=== PATIENT | male | born 1980 | race Hispanic/Latino ===

== ENCOUNTER 2017-05-05 10:28 | Inpatient (IN) | payer BC ==
[2017-05-05 10:28] VITALS: BMI 28.1
--- NOTE | 2017-05-05 11:00 | ED PDOC ---
Arrival/HPI - General Chief Complaint: Abdominal Pain Time Seen by Provider: 05/05/17 10:34 - History of Present Illness Narrative History of Present Illness (Text): 37 year old male with a history of diverticulitis and kidney stones who presents with 5 days of fever, chills, sweats, decreased PO intake, nausea and 2 days of left lower quandrant pain. He scales the pain as 8/10 in severity, constant, worsened with food, and with BM. He denies hematochezia or melena. 05/05/17 11:00 Past Medical History - Provider Review Nursing Documentation Reviewed: Yes - Infectious Disease Hx of Infectious Diseases: None - Tetanus Immunization Tetanus Immunization: Unknown - Past Medical History Past Medical History: No Previous - Cardiac Hx Cardiac Disorders: No - Pulmonary Hx Respiratory Disorders: No - Neurological Hx Neurological Disorder: No - HEENT Hx HEENT Disorder: No - Renal Hx Renal Disorder: No - Endocrine/Metabolic Hx Endocrine Disorders: No - Hematological/Oncological Hx Blood Disorders: No - Integumentary Other/Comment: rectal abscess removal, rectum site - Musculoskeletal/Rheumatological Hx Musculoskeletal Disorders: No Hx Falls: No - Gastrointestinal Other/Comment: rectal abscess removed 07/21/16 - Genitourinary/Gynecological Hx Genitourinary Disorders: No Hx Hematuria: No Hx Incontinence: No Hx Prostate Problems: No Hx Sexually Transmitted Diseases: No Hx Urinary Tract Infection: No Other/Comment: rectal abscess removed 07/21/16 - Psychiatric Hx Psychophysiologic Disorder: No Hx Substance Use: No - Past Surgical History Past Surgical History: No Previous - Surgical History Other/Comment: rectal surgery 07/21/16 - Anesthesia Hx Anesthesia: Yes Hx Anesthesia Reactions: No - Suicidal Assessment Feels Threatened In Home Enviroment: No Family/Social History - Physician Review Nursing Documentation Reviewed: Yes Family/Social History: Other (diverticulitis) Smoking Status: Never Smoked Hx Alcohol Use: No Hx Substance Use: No Hx Substance Use Treatment: No Allergies/Home Meds Allergies/Adverse Reactions: Allergies No Known Allergies Allergy (Verified 07/21/16 13:02) Home Medications: Home Meds Medication Instructions Recorded Confirmed Fexofenadine/Pseudoephedrine 1 tab PO DAILY 07/21/16 05/05/17 [Raquel-D 24 Hour Tablet] Omeprazole 1 tab PO DAILY 07/21/16 05/05/17 Review of Systems - Review of Systems Constitutional: Fatigue, Fevers. absent: Weight Change Eyes: Normal. absent: Vision Changes, Photophobia ENT: Other (lesions on the lips and lower left nares) Respiratory: Normal. absent: Cough, Sputum Cardiovascular: Normal. absent: Chest Pain, Palpitations Gastrointestinal: Abdominal Pain (tenderness in the LLQ to palpation, no rebound tenderness), Nausea. absent: Constipation, Diarrhea, Hematochezia, Hematemesis Genitourinary Male: absent: Dysuria, Frequency, Hematuria Musculoskeletal: Arthralgias, Myalgias Skin: Normal. absent: Rash, Pruritis, Skin Lesions Neurological: Normal. absent: Headache, Dizziness Endocrine: Normal. absent: Diaphoresis, Polyuria Hemo/Lymphatic: absent: Easy Bleeding, Easy Bruising Psychiatric: absent: Anxiety, Depression Physical Exam Vital Signs Reviewed: Yes Vital Signs Temp Pulse Resp BP Pulse Ox 05/05/17 14:20 61 17 121/78 99 05/05/17 12:40 62 17 140/94 H 99 05/05/17 10:28 98.8 F 65 65 H 142/97 H 99 Temperature: Afebrile Blood Pressure: Normal Pulse: Regular Respiratory Rate: Normal Appearance: Positive for: Well-Appearing, Non-Toxic Pain Distress: Mild Mental Status: Positive for: Alert and Oriented X 3 - Systems Exam Head: Present: Atraumatic, Normocephalic Pupils: Present: PERRL Extroacular Muscles: Present: EOMI Conjunctiva: Present: Normal Mouth: Present: Moist Mucous Membranes, Other (stress ulcers noted on lips, no buccal lesions noted) Pharnyx: Present: Normal. No: ERYTHEMA, EXUDATE Neck: Present: Lymphadenopathy (anterior cervical chain) Respiratory/Chest: Present: Clear to Auscultation, Good Air Exchange. No: Respiratory Distress, Accessory Muscle Use Cardiovascular: Present: Regular Rate and Rhythm, Normal S1, S2. No: Murmurs Abdomen: Present: Tenderness (left lower quandrant pain), Normal Bowel Sounds. No: Distention, Peritoneal Signs, Rebound Back: Present: Normal Inspection. No: CVA Tenderness Upper Extremity: Present: Normal Inspection. No: Cyanosis, Edema Lower Extremity: Present: Normal Inspection. No: Edema, CALF TENDERNESS Neurological: Present: CN II-XII Intact, Speech Normal, Motor Func Grossly Intact Skin: Present: Warm, Dry, Normal Color Psychiatric: Present: Alert, Oriented x 3, Normal Insight, Normal Concentration Medical Decision Making ED Course and Treatment: 37 year old male with a past medical history of diverticulitis who presents with 5 days of fever, malaise and 2 days of LLQ. vice president of software engineering on-call informed to see patient. 05/05/17 11:36 WBC count of 9.9 with neutrophil predominance, mildly elevated LFTs, surgical team has seen the patient. Patient is at CT. 05/05/17 12:07 CT of abdomen and pelvis with PO and IV contrast reveals acute sigmoid diverticulitis. Small perforation with a small amount of extraluminal gas identified adjacent to the affected sigmoid colon. Mural thickening of a short segment of small intestines adjacent to the affected sigmoid colon, likely due to extrinsic inflammatory change. Several small tissue nodules along the gall bladder wall. Recommend evaluation with ultrasound examination. 05/05/17 15:[address] Martin who will accept the patient under her medical services. Dr. Freire, surgeon, was also made aware. 05/05/17 16:03 - Lab Interpretations Lab Results: 05/05/17 11:15 05/05/17 11:15 Lab Results 05/05/17 11:15: Sodium 139, Potassium 4.3, Chloride 100, Carbon Dioxide 27, Anion Gap 16, BUN 11, Creatinine 0.8, Est GFR ( Amer) > 60, Est GFR (Non- Af Amer) > 60, Random Glucose 114 H, Calcium 9.3, Total Bilirubin 1.2, AST 86 H , ALT 127 H, Alkaline Phosphatase 156 H, Total Protein 7.8, Albumin 4.4, Globulin 3.4, Albumin/Globulin Ratio 1.3, Lipase 52 05/05/17 11:15: WBC 9.9 D, RBC 5.30, Hgb 15.5, Hct 44.0, MCV 83.0, MCH 29.2, MCHC 35.2, RDW 13.1, Plt Count 197, MPV 9.3, Gran % 81.3 H, Lymph % (Auto) 10.2 L, [place] % (Auto) 8.2 H, Eos % (Auto) 0.1 L, Baso % (Auto) 0.2, Gran # 8.06 H, Lymph # 1.0 L, [place] # 0.8 H, Eos # 0.0, Baso # 0.02 05/05/17 10:56: Urine Color Light brown, Urine Appearance Sl cloudy, Urine pH 6.0, Ur Specific [place] 1.025, Urine Protein >=300 H, Urine Glucose (UA) Negative, Urine Ketones >=80, Urine Blood Moderate H, Urine Nitrate Negative, Urine Bilirubin Moderate H, Urine Urobilinogen 2.0 H, Ur Leukocyte Esterase Negative, Urine RBC 5 - 10, Urine WBC 0 - 2, Urine Bacteria Trace, Urine Other Mucus - RAD Interpretation Radiology Orders: 05/05/17 10:56 ABD PELVIS PO & IV CONTRAST [CT] Stat - Medication Orders Current Medication Orders: Discontinued Medications Piperacillin Sod/Tazobactam Sod (Zosyn 3.375 In Ns 100ml) 100 mls @ 200 mls/hr IVPB STAT STA PRN Reason: Protocol Stop: 05/05/17 15:16 Last Admin: 05/05/17 15:03 Dose: 200 mls/hr eMAR Start Stop Document 05/05/17 15:03 SF (Rec: 05/05/17 15:04 [id number]) Intravenous Solution Start Date 05/05/17 Start Time 15:04 End Date 05/05/17 End time 15:34 Total Infusion Time 30 Ketorolac Tromethamine (Toradol) 30 mg IVP STAT STA Stop: 05/05/17 12:31 Last Admin: 05/05/17 12:41 Dose: 30 mg MAR Pain Assessment Document 05/05/17 12:41 SF (Rec: 05/05/17 12:42 [id number]) Pain Reassessment Is this a pain reassessment? Yes Sleep Is patient sleeping during reassessment? No Presence of Pain Presence of Pain Yes Location Pain Location Body Site Abdomen Description Description Intermittent IVP Administration Document 05/05/17 12:41 SF (Rec: 05/05/17 12:42 [id number]) Charges for Administration # of IVP Administrations 1 Disposition/Present on Arrival - Present on Arrival Any Indicators Present on Arrival: No History of DVT/PE: No History of Uncontrolled Diabetes: No Urinary Catheter: No History Surgical Site Infection Following: None - Disposition Have Diagnosis and Disposition been Completed?: Yes Diagnosis: Diverticulitis large intestine Disposition: HOSPITALIZED Disposition Time: 16:03 Condition: FAIR Forms: [employer] (formerly [employer]) ([place])
[2017-05-05] MEDS ORDERED: Iohexol 350 MG/100 ML VIAL ONE (11:12)
[2017-05-05] MEDS ORDERED: Iohexol 240 (50 ml) ONE (11:12)
[2017-05-05 11:24] LABS: BASO # 0.02 K/mm3 (0.0-2.0); BASO % 0.2 % (0.0-3.0); EOS % 0.1 % (1.5-5.0); GRAN # 8.06 (1.4-6.5); GRAN % 81.3 % (50.0-68.0); LYMPH % 10.2 % (22.0-35.0); MEAN CORPUSCULAR HEMOGLOBIN 29.2 pg (25.0-35.0); MEAN CORPUSCULAR HGB CONC 35.2 g/dl (31.0-37.0); MEAN PLATELET VOLUME 9.3 fl (7.0-11.0); MONO # 0.8 (0.1-0.6); MONO % 8.2 % (1.0-6.0); RED CELL DISTRIBUTION WIDTH 13.1 % (11.5-14.5); WHITE BLOOD COUNT 9.9 10^3/ul (4.5-11.0)
[2017-05-05 11:34] LABS: ALB/GLOB RATIO 1.3 (1.1-1.8); ALKALINE PHOSPHATASE 156 U/L (38-126); ALT/SGPT 127 U/L (7-56); AST/SGOT 86 U/L (17-59); BILIRUBIN,TOTAL 1.2 mg/dL (0.2-1.3); BLOOD UREA NITROGEN 11 mg/dL (7-21); CALCIUM 9.3 mg/dL (8.4-10.5); CARBON DIOXIDE 27 mmol/L (21-33); CHLORIDE 100 mmol/L (98-107); GFR AFRICAN-AMERICAN > 60; GLUCOSE,RANDOM 114 mg/dL (70-110); LIPASE 52 U/L (23-300); POTASSIUM 4.3 mmol/L (3.6-5.0); SODIUM 139 mmol/L (132-148); TOTAL PROTEIN 7.8 g/dL (5.8-8.3)
[2017-05-05 11:51] LABS: URINE BILIRUBIN MODERATE (NEGATIVE); URINE BLOOD MODERATE (NEGATIVE); URINE COLOR LIGHT BROWN (YELLOW); URINE GLUCOSE (UA) NEGATIVE (NEGATIVE); URINE KETONE >=80 mg/dL (NEGATIVE); URINE LEUKOCYTE ESTERASE NEGATIVE Leu/uL (NEGATIVE); URINE PROTEIN >=300 mg/dL (<30 mg/dL)
[2017-05-05 11:52] LABS: URINE APPEARANCE SL CLOUDY (CLEAR)
[2017-05-05 12:01] LABS: URINE WBC 0 - 2 /hpf (0-6)
[2017-05-05 12:02] LABS: URINE BACTERIA TRACE (NEG)
[2017-05-05] MEDS ORDERED: Piperacillin/Tazobact 3.375 gm 100 ML IVPB STA (14:47)
--- NOTE | 2017-05-05 14:47 | CT ---
PROCEDURE: CT Abdomen and Pelvis with contrast HISTORY: LLQ pain, history of diverticulitis COMPARISON: None. TECHNIQUE: Contrast dose: 100 mL Omnipaque 350 Radiation dose: Total exam DLP = 100 mL Omnipaque 350 mGy-cm. This CT exam was performed using one or more of the following dose reduction techniques: Automated exposure control, adjustment of the mA and/or kV according to patient size, and/or use of iterative reconstruction technique. FINDINGS: LOWER THORAX: Unremarkable. LIVER: Unremarkable. No gross lesion or ductal dilatation. GALLBLADDER AND BILE DUCTS: There are 2 small mural based soft tissue densities in the gallbladder, non dependent, measuring 7 mm and 8 mm, respectively. These may represent polyps. Evaluation with ultrasound examination is recommended on a nonemergent basis. There is no evidence of cholelithiasis. There is no mural thickening. PANCREAS: Unremarkable. No gross lesion or ductal dilatation. SPLEEN: Unremarkable. ADRENALS: Unremarkable. No mass. KIDNEYS AND URETERS: Unremarkable. No hydronephrosis. No solid mass. VASCULATURE: Unremarkable. No aortic aneurysm. BOWEL: There is acute sigmoid diverticulitis. There is mural thickening of the sigmoid colon with pericolonic inflammatory change. There is a small amount of extraluminal gas adjacent to the affected sigmoid colon consistent with a small perforation and free air. Shotty pericolonic lymph nodes are noted, less than 1 cm. This is nonspecific. Followup to clearing is advised to exclude underlying neoplasm. There is circumferential mural thickening involving a short segment of small intestine along the right lateral aspect of the sigmoid colon (series 2, image 129 through 139). This is most likely a secondary phenomenon arising from the adjacent inflammation. There are no other abnormal bowel loops identified. There is no bowel obstruction. APPENDIX: Normal appendix. PERITONEUM: Unremarkable. No free fluid. No free air. LYMPH NODES: Unremarkable. No enlarged lymph nodes. BLADDER: Nondistended REPRODUCTIVE: Normal prostate BONES: No acute fracture. OTHER FINDINGS: None. IMPRESSION: Acute sigmoid diverticulitis. There is a small perforation with a small amount of extraluminal gas identified adjacent to the affected sigmoid colon. Mural thickening of the sigmoid colon. Followup to clearing is advised to exclude underlying neoplasm. Mural thickening of a short segment of small intestine adjacent to the affected sigmoid colon, likely due to extrinsic inflammatory change. Several small soft tissue nodules along the gallbladder wall. Recommend evaluation with ultrasound examination.
--- NOTE | 2017-05-05 15:32 | CP.PCM.CON ---
History of Present Illness - History of Present Illness History of Present Illness: Patient is a 37 year old Male that presents to the ED with diffuse abdominal pain that started 5 days ago and has now localized to the LLQ. He states this past week he had been eating and drinking more than normal. He has had similar pain previously that was diagnosed as diverticulitis. His last episode was 3 years ago. This is his 3rd episodes. He reports associated fever, chills, night sweats, anorexia, non-bilious non-bloody vomiting x 3 and watery non-bloody diarrhea for 2 days which subsided on Tuesday. PMH: Diverticulitis, Diverticulosis PSH: Rectal Abscess drainage Allergies: NKDA Social Hx: Smokes 5 cigarettes per day, drinks alcohol socially. Family Hx: Diverticulosis and Diverticulitis in Father, Colon Cancer in grandfather and multiple family members. No hx of IBD. Review of Systems - Review of Systems Review of Systems: See HPI Past Patient History - Infectious Disease Hx of Infectious Diseases: None - Tetanus Immunizations Tetanus Immunization: Unknown - Past Social History Smoking Status: Never Smoked - CARDIAC Hx Cardiac Disorders: No - PULMONARY Hx Respiratory Disorders: No - NEUROLOGICAL Hx Neurological Disorder: No - HEENT Hx HEENT Problems: No - RENAL Hx Chronic Kidney Disease: No - ENDOCRINE/METABOLIC Hx Endocrine Disorders: No - HEMATOLOGICAL/ONCOLOGICAL Hx Blood Disorders: No - INTEGUMENTARY Other/Comment: rectal abscess removal, rectum site - MUSCULOSKELETAL/RHEUMATOLOGICAL Hx Musculoskeletal Disorders: No Hx Falls: No - GASTROINTESTINAL Other/Comment: rectal abscess removed 07/21/16 - GENITOURINARY/GYNECOLOGICAL Hx Genitourinary Disorders: No Hx Hematuria: No Hx Incontinence: No Hx Prostate Problems: No Hx Sexually Transmitted Disorders: No Hx Urinary Tract Infection: No Other/Comment: rectal abscess removed 07/21/16 - PSYCHIATRIC Hx Psychophysiologic Disorder: No Hx Substance Use: No - SURGICAL HISTORY Other/Comment: rectal surgery 07/21/16 - ANESTHESIA Hx Anesthesia: Yes Hx Anesthesia Reactions: No Meds Allergies/Adverse Reactions: Allergies Allergy/AdvReac Type Severity Reaction Status Date / Time No Known Allergies Allergy Verified 07/21/16 13:02 Physical Exam - Constitutional Appears: Non-toxic, No Acute Distress - Head Exam Head Exam: ATRAUMATIC, NORMOCEPHALIC - Eye Exam Eye Exam: EOMI. absent: Conjunctival injection - Neck Exam Neck exam: Positive for: Full Rom - Respiratory Exam Respiratory Exam: absent: Accessory Muscle Use, Decreased Breath Sounds, Respiratory Distress - Cardiovascular Exam Cardiovascular Exam: REGULAR RHYTHM - GI/Abdominal Exam GI & Abdominal Exam: Normal Bowel Sounds, Soft, Tenderness (mild-mod of LLQ and left groin). absent: Distended, Guarding, Organomegaly, Rebound, Rigid Additional comments: LLQ TTP - Extremities Exam Extremities exam: Positive for: full ROM. Negative for: pedal edema - Neurological Exam Neurological exam: Alert, Oriented x3 - Psychiatric Exam Psychiatric exam: Normal Affect, Normal Mood - Skin Skin Exam: Dry, Normal Color, Warm Results - Vital Signs Recent Vital Signs: Last Vital Signs Temp 98.8 F 05/05/17 10:28 Pulse 61 05/05/17 14:20 Resp 17 05/05/17 14:20 BP 121/78 05/05/17 14:20 Pulse Ox 99 05/05/17 14:20 - Labs Result Diagrams: 05/05/17 11:15 05/05/17 11:15 Labs: Laboratory Results - last 24 hr 05/05/17 05/05/17 05/05/17 10:56 11:15 11:15 WBC 9.9 D RBC 5.30 Hgb 15.5 Hct 44.0 MCV 83.0 MCH 29.2 MCHC 35.2 RDW 13.1 Plt Count 197 MPV 9.3 Gran % 81.3 H Lymph % (Auto) 10.2 L [place] % (Auto) 8.2 H Eos % (Auto) 0.1 L Baso % (Auto) 0.2 Gran # 8.06 H Lymph # 1.0 L [place] # 0.8 H Eos # 0.0 Baso # 0.02 Sodium 139 Potassium 4.3 Chloride 100 Carbon Dioxide 27 Anion Gap 16 BUN 11 Creatinine 0.8 Est GFR ( Amer) > 60 Est GFR (Non-Af Amer) > 60 Random Glucose 114 H Calcium 9.3 Total Bilirubin 1.2 AST 86 H ALT 127 H Alkaline Phosphatase 156 H Total Protein 7.8 Albumin 4.4 Globulin 3.4 Albumin/Globulin Ratio 1.3 Lipase 52 Urine Color Light brown Urine Appearance Sl cloudy Urine pH 6.0 Ur Specific [place] 1.025 Urine Protein >=300 H Urine Glucose (UA) Negative Urine Ketones >=80 Urine Blood Moderate H Urine Nitrate Negative Urine Bilirubin Moderate H Urine Urobilinogen 2.0 H Ur Leukocyte Esterase Negative Urine RBC 5 - 10 Urine WBC 0 - 2 Urine Bacteria Trace Urine Other Mucus Assessment & Plan - Assessment and Plan (Free Text) Assessment: 37M with history of diverticulitis and diverticulosis with LLQ abdominal pain.\ No leukocytosis VSS CT: sigmoid diverticulitits Plan: - NPO - IVF - ABX - pain management PRN
[2017-05-05] MEDS ORDERED: HYDROmorphone 1 mg/ml ISec IVP PRN (16:17)
[2017-05-05] MEDS ORDERED: Sodium Chloride 0.9% 1,000 ML IV STA (16:17)
[2017-05-05] MEDS ORDERED: Sodium Chloride 0.9% 1,000 ML IV SCH (17:30)
[2017-05-05] MEDS ORDERED: Ciprofloxacin 400mg/200ml D5W 400 MG/200 ML BAG IVPB SCH (22:00)
[2017-05-05] MEDS ORDERED: metroNIDAZOLE IV 500 mg/100 ml 500 MG/100 ML BAG IVPB SCH (22:00)
[2017-05-05] MEDS ORDERED: Influenza Vaccine 60 mcg/0.5 mL SYR (4YR UP) IM ONE (22:10)
[2017-05-05] MEDS ORDERED: Pneumococcal 23-Valent Vaccine IM ONE (22:10)
[2017-05-06] MEDS: Piperacillin/Tazobact 3.375 gm 100 ML IVPB SCH ×5 (00:11→23:52)
--- NOTE | 2017-05-06 04:59 | CON ---
CHIEF COMPLAINT: Fevers and chills times several days. HISTORY OF PRESENT ILLNESS: This is a 37-year-old male with history of diverticulitis for many years, family history of diverticulitis, history of kidney stones, history of rectal abscess, states he had been having fevers and chills and eventually he had abdominal pain which is described as left lower quadrant and associated with weakness and abdominal pain was significant pain. He has had diverticulitis in the past, he notes pain and he states that he did not have any chest pain, shortness of breath or cough. No vomiting. He did have diarrhea which was nonbloody. PAST MEDICAL HISTORY: Significant for diverticulitis, kidney stones and rectal abscess. PAST SURGICAL HISTORY: Significant for rectal abscess, I and D in 06/[address] Reina. ALLERGIES: THE PATIENT HAS NO KNOWN ALLERGIES. SOCIAL HISTORY: He smokes a few cigarettes a day. He is a social alcohol user. FAMILY HISTORY: Diverticulitis in multiple family members. He was born in [place]. No travel history. No exposure to tuberculosis. PHYSICAL EXAMINATION: VITAL SIGNS: Temperature is 97, blood pressure is 120/70, respiratory rate of 18, heart rate of 61. HEENT: Unremarkable. NECK: Supple. LUNGS: Have decreased breath sounds. HEART: Normal S1 and S2. ABDOMEN: Mild tenderness. No rebound, no guarding, no masses. LABORATORY EXAMINATION: Reveals a white count of 9.9, hemoglobin of 15, and platelets of 197. Chemistries are noted. The patient does have LFT elevations including alk phos and random glucose is 114. Urinalysis is noted. ASSESSMENT AND PLAN: This is a 37-year-old male who is presenting with fevers and chills and abdominal pain, history of diverticulitis, history of family diverticulitis, was found to have on CT scan in the emergency room with acute sigmoid diverticulitis with small perforation with small amount of extraluminal gas identified adjacent to the affected sigmoid colon, mural thickening of the sigmoid colon. At this point, we will start the patient on Zosyn. We will order pancultures, blood and we will order an human immunodeficiency virus because of his age, hepatitis profile because of the LFT elevations and alk phos elevation. We will start the patient on Zosyn and order a hemoglobin A1c. We will discontinue the Cipro and discontinue the Flagyl and we will make further recommendations upon availability of initial results. The patient's urinalysis does show proteinuria, moderate bilirubin, moderate blood. Recommended GI evaluation. Dr. Reina is also on consult. We will follow with you. Norman Waldron MD
--- NOTE | 2017-05-06 08:31 | CP.PCM.PN ---
Subjective - Date & Time of Evaluation Date of Evaluation: 05/06/17 Time of Evaluation: 08:28 - Subjective Subjective: Surgery progress note for Dr. Reina Patient seen and examined at bedside. Patient resting comfortably in bed with no new complaints at this time. Patient says he prefers the toradol over the dilaudid. Patient says his pain is controlled but he did have 1 episode of diarrhea overnight. Patient denies fever, chills, abdominal pain, nausea, and vomiting. Objective - Vital Signs/Intake and Output Vital Signs (last 24 hours): Temp Pulse Resp BP Pulse Ox 99.2 F 55 L 20 121/77 97 05/06/17 08:09 05/06/17 08:09 05/06/17 08:09 05/06/17 08:09 05/06/17 08:09 Intake and Output: 05/06/17 05/06/17 06:59 18:59 Intake Total 0 Output Total 200 Balance -200 - Medications Medications: Current Medications Acetaminophen (Tylenol 325mg Tab) 650 mg PO Q4 PRN PRN Reason: Fever >100.4 F Hydromorphone HCl (Dilaudid) 1 mg IVP Q4H PRN PRN Reason: Pain, severe (8-10) Piperacillin Sod/Tazobactam Sod (Zosyn 3.375 In Ns 100ml) 100 mls @ 200 mls/hr IVPB Q6 ROCK PRN Reason: Protocol Stop: 05/19/17 19:44 Last Admin: 05/06/17 05:47 Dose: 200 mls/hr Sodium Chloride (Sodium Chloride 0.9%) 1,000 mls @ 150 mls/hr IV .Q6H40M [facility] Ketorolac Tromethamine (Toradol) 15 mg IVP Q6H PRN PRN Reason: Pain, moderate (4-7) Last Admin: 05/06/17 08:02 Dose: 15 mg - Constitutional Appears: Non-toxic, No Acute Distress - Head Exam Head Exam: NORMAL INSPECTION - Eye Exam Eye Exam: EOMI - ENT Exam ENT Exam: Mucous Membranes Moist - Respiratory Exam Respiratory Exam: NORMAL BREATHING PATTERN. absent: Accessory Muscle Use, Respiratory Distress - Cardiovascular Exam Cardiovascular Exam: REGULAR RHYTHM. absent: Bradycardia, Tachycardia - GI/Abdominal Exam GI & Abdominal Exam: Soft. absent: Distended, Tenderness - Extremities Exam Extremities Exam: absent: Calf Tenderness - Neurological Exam Neurological Exam: Alert, Awake - Psychiatric Exam Psychiatric exam: Normal Affect, Normal Mood - Skin Skin Exam: Dry, Intact, Normal Color, Warm Assessment and Plan - Assessment and Plan (Free Text) Assessment: 37M with divert[address]: sigmoid diverticulitis Afebrile, no leukocytosis Plan: - analgesics - zosyn - NPO - IVF - no surgical intervention needed at this time - further recs per Dr. Nuno Garcia, PGY1
[2017-05-06] MEDS: Sodium Chloride 0.9% 1,000 ML IV SCH ×2 (09:23→22:40)
[2017-05-06 09:26] LABS: BASO # 0.02 K/mm3 (0.0-2.0); BASO % 0.3 % (0.0-3.0); EOS # 0.1 (0.0-0.7); EOS % 0.9 % (1.5-5.0); GRAN # 4.91 (1.4-6.5); GRAN % 64.6 % (50.0-68.0); HEMATOCRIT 38.6 % (42.0-52.0); LYMPH # 1.9 (1.2-3.4); MEAN PLATELET VOLUME 9.1 fl (7.0-11.0); MONO # 0.7 (0.1-0.6); MONO % 9.2 % (1.0-6.0); WHITE BLOOD COUNT 7.6 10^3/ul (4.5-11.0)
--- NOTE | 2017-05-06 11:32 | PN ---
DATE: 05/06/2017 SUBJECTIVE: The patient is in bed, in no acute distress, nontoxic. OBJECTIVE: VITAL SIGNS: On exam, temperature is 99, blood pressure is 120/70 and respiratory rate of 20. EXAMINATION OF HEENT: Unremarkable. NECK: Supple. LUNGS: Have decreased breath sounds. HEART EXAM: Normal S1 and S2. ABDOMEN EXAMINATION: Soft, minimal tenderness in the left lower quadrant. No rebound or guarding. LABORATORY EXAMINATION: Reveals a white count of 9.9, hemoglobin of 15 and platelets of 197. Differential is noted. LFTs are elevated, alk phos is elevated. Urinalysis is noted. Microbiology is pending. CAT scan is reviewed. Dr. Diane Garcia's note is not available, unable to open. ASSESSMENT AND PLAN: This is a 37-year-old male with a past medical history of diverticulitis for many years who was admitted with fevers and chills and found to have acute sigmoid diverticulitis with microperforations, currently on Zosyn day #2. Awaiting for culture results, human immunodeficiency virus test, hemoglobin A1c, hepatitis profile and we will follow closely with you. Norman Waldron MD
--- NOTE | 2017-05-06 11:48 | CP.PCM.CON ---
<Jacey May - Last Filed: 05/06/17 11:47> History of Present Illness - History of Present Illness History of Present Illness: Patient seen and examined at the bedside earlier today, chart was reviewed. Request for GI consult is for acute diverticulitis. HPI: This is a 37-year-old female with a past medical history diverticulitis, his last episode was 6 years ago. The patient came to the emergency room with complaints of diffuse abdominal pain that started 5 days ago, having pain in the left lower quadrant. The patient did report fevers and chills. He does move his bowels irregular, does not report any melena or bright red blood. 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 He denies any weight loss, or anorexia. He did have nonbilious and nonbloody vomiting and diarrhea the past 2 days. Denies any bleeding per rectum. His most recent colonoscopy was this year 2016 found to have colon polyps. He had endoscopy 2 years ago and no acute findings. He does have heartburn, and is on PPI daily, although he hasn' t taken it for the past 2 days. on admission he had a CT scan of abdomen and pelvis with IV and oral contrast and this did report acute sigmoid diverticulitis with small perforation and small amount of extraluminal gas. Also noted to have a nodule. Past medical history: Diverticulitis, diverticulosis, colon polyp, GERD, history of esophageal ulcer, Trejo's esophagus Past surgical history: is rectal abscess drainage in June Allergies: no known drug allergies Social history: Patient positive for smoking, drinks alcohol socially especially with his job in sales he states, does admit to taking recreational drugs, he travels for his job. Medications: Reviewed as per MAR Family history: Grandfather: Colon cancer as well as other family members, father: Diverticular ecchymosis and diverticulitis ROS: Systems reviewed with positive findings see HPI Past Patient History - Infectious Disease Hx of Infectious Diseases: None - Tetanus Immunizations Tetanus Immunization: Unknown - Past Social History Smoking Status: Former Smoker - CARDIAC Hx Cardiac Disorders: No - PULMONARY Hx Respiratory Disorders: No - NEUROLOGICAL Hx Neurological Disorder: No - HEENT Hx HEENT Problems: No - RENAL Hx Kidney Stones: Yes - ENDOCRINE/METABOLIC Hx Endocrine Disorders: No - HEMATOLOGICAL/ONCOLOGICAL Hx Blood Disorders: No - INTEGUMENTARY Other/Comment: rectal abscess removal, rectum site 06/2016 - MUSCULOSKELETAL/RHEUMATOLOGICAL Hx Musculoskeletal Disorders: No Hx Falls: No - GASTROINTESTINAL Hx Diverticulitis: Yes Other/Comment: rectal abscess removed 07/21/16 - GENITOURINARY/GYNECOLOGICAL Hx Genitourinary Disorders: No Hx Hematuria: No Hx Incontinence: No Hx Prostate Problems: No Hx Sexually Transmitted Disorders: No Hx Urinary Tract Infection: No Other/Comment: rectal abscess removed 07/21/16 - PSYCHIATRIC Hx Psychophysiologic Disorder: No Hx Substance Use: No - SURGICAL HISTORY Other/Comment: rectal surgery 07/21/16 - ANESTHESIA Hx Anesthesia: Yes Hx Anesthesia Reactions: No Meds Allergies/Adverse Reactions: Allergies Allergy/AdvReac Type Severity Reaction Status Date / Time No Known Allergies Allergy Verified 07/21/16 13:02 - Medications Medications: Current Medications Acetaminophen (Tylenol 325mg Tab) 650 mg PO Q4 PRN PRN Reason: Fever >100.4 F Piperacillin Sod/Tazobactam Sod (Zosyn 3.375 In Ns 100ml) 100 mls @ 200 mls/hr IVPB Q6 ROCK PRN Reason: Protocol Stop: 05/19/17 19:44 Last Admin: 05/06/17 05:47 Dose: 200 mls/hr Sodium Chloride (Sodium Chloride 0.9%) 1,000 mls @ 150 mls/hr IV .Q6H40M [facility] Last Admin: 05/06/17 09:23 Dose: 150 mls/hr Ketorolac Tromethamine (Toradol) 15 mg IVP Q6H PRN PRN Reason: Pain, moderate (4-7) Last Admin: 05/06/17 08:02 Dose: 15 mg Physical Exam - Constitutional Appears: No Acute Distress - Head Exam Head Exam: NORMOCEPHALIC - Eye Exam Eye Exam: Normal appearance. absent: Scleral icterus - ENT Exam ENT Exam: Mucous Membranes Moist - Neck Exam Neck exam: Positive for: Normal Inspection - Respiratory Exam Respiratory Exam: NORMAL BREATHING PATTERN. absent: Respiratory Distress - Cardiovascular Exam Cardiovascular Exam: +S1, +S2 - GI/Abdominal Exam GI & Abdominal Exam: Normal Bowel Sounds, Soft, Tenderness (LLQ). absent: Guarding, Rebound - Extremities Exam Extremities exam: Positive for: pedal pulses present. Negative for: calf tenderness, pedal edema - Neurological Exam Neurological exam: Alert, CN II-XII Intact, Oriented x3 - Skin Skin Exam: Dry, Warm Results - Vital Signs Recent Vital Signs: Last Vital Signs Temp 99.2 F 05/06/17 08:09 Pulse 55 L 05/06/17 08:09 Resp 20 05/06/17 08:09 BP 121/77 05/06/17 08:09 Pulse Ox 97 05/06/17 08:09 - Labs Result Diagrams: 05/06/17 09:17 05/05/17 11:15 Labs: Laboratory Results - last 24 hr 05/05/17 05/06/17 21:59 09:17 WBC 7.6 D RBC 4.65 Hgb 13.5 L D Hct 38.6 L MCV 83.0 MCH 29.0 MCHC 35.0 RDW 13.0 Plt Count 197 MPV 9.1 Gran % 64.6 Lymph % (Auto) 25.0 [place] % (Auto) 9.2 H Eos % (Auto) 0.9 L Baso % (Auto) 0.3 Gran # 4.91 Lymph # 1.9 [place] # 0.7 H Eos # 0.1 Baso # 0.02 Hemoglobin A1c 6.2 Assessment & Plan - Assessment and Plan (Free Text) Assessment: Assessment: Acute diverticulitis with perforation GERD Elevated liver enzymes History of esophageal ulcer History of Trejo's esophagus History of colon polyps Plan: Nothing by mouth, continue IV fluids start Protonix 40 mg IVP Continue IV antibiotics as per ID, on Zosyn Follow-up hepatitis panel trend LFT Request for abdominal ultrasound for elevated LFTs and nodular gallbladder seen on CT scan Surgical follow-up Thank you for this consult and for allowing us to participate in your patient's care, further recommendations based upon clinical course. Seen and discussed with Dr. Rivera. <Madhu Rivera V - Last Filed: 05/06/17 20:52> Meds - Medications Medications: Current Medications Acetaminophen (Tylenol 325mg Tab) 650 mg PO Q4 PRN PRN Reason: Fever >100.4 F Piperacillin Sod/Tazobactam Sod (Zosyn 3.375 In Ns 100ml) 100 mls @ 200 mls/hr IVPB Q6 [facility] PRN Reason: Protocol Stop: 05/19/17 19:44 Last Admin: 05/06/17 17:30 Dose: 200 mls/hr Sodium Chloride (Sodium Chloride 0.9%) 1,000 mls @ 150 mls/hr IV .Q6H40M [facility] Last Admin: 05/06/17 09:23 Dose: 150 mls/hr Ketorolac Tromethamine (Toradol) 15 mg IVP Q6H PRN PRN Reason: Pain, moderate (4-7) Last Admin: 05/06/17 16:11 Dose: 15 mg Pantoprazole Sodium (Protonix Inj) 40 mg IVP DAILY [facility] Last Admin: 05/06/17 12:15 Dose: 40 mg Results - Vital Signs Recent Vital Signs: Last Vital Signs Temp 97.6 F 05/06/17 16:00 Pulse 64 05/06/17 16:00 Resp 20 05/06/17 16:00 BP 145/88 05/06/17 16:00 Pulse Ox 97 05/06/17 16:00 - Labs Result Diagrams: 05/06/17 09:17 05/05/17 11:15 Labs: Laboratory Results - last 24 hr 05/05/17 05/05/17 05/06/17 21:59 21:59 09:17 WBC 7.6 D RBC 4.65 Hgb 13.5 L D Hct 38.6 L MCV 83.0 MCH 29.0 MCHC 35.0 RDW 13.0 Plt Count 197 MPV 9.1 Gran % 64.6 Lymph % (Auto) 25.0 [place] % (Auto) 9.2 H Eos % (Auto) 0.9 L Baso % (Auto) 0.3 Gran # 4.91 Lymph # 1.9 [place] # 0.7 H Eos # 0.1 Baso # 0.02 Hemoglobin A1c 6.2 Hepatitis A IgM Ab Negative Hep Bs Antigen Negative Hep B Core IgM Ab Negative Hepatitis C Antibody Negative Attending/Attestation - Attestation I have personally seen and examined this patient.: Yes I have fully participated in the care of the patient.: Yes I have reviewed all pertinent clinical information: Yes Notes (Text): This is an addendum to GI progress report dictated by Jacey May APN.The patient was seen and examined earlier. Medical records, lab studies, imagings were reviewed. Last 24 hours events reviewed. Agreed with the above treatment plan as outlined in Jacey May APN's notes the with the addition of the following Admitted with fair acute severe diverticulitis with microperforation He elevated LFTs probably secondary to the EtOH use Sonogram reviewed multiple polyps in the gallbladder History of Trejo's esophagus last endoscopy 2017 History of diverticulosis and diverticulitis in the past last colonoscopy 2012 On examination patient has some tenderness in the suprapubic and lower left lower quadrant pain Continue the antibiotics Clear liquid diet in a.m. Would need elective surgery. Would recommend colonoscopy before surgical intervention would request MRI of the abdomen with MRCP to further evaluate the gallbladder polyp 05/06/17 20:48
--- NOTE | 2017-05-06 15:38 | US ---
HISTORY: Elevated LFT/nodular GB on ct scan COMPARISON: CT abdomen and pelvis without contrast performed 05/05/17 TECHNIQUE: Sonographic evaluation of the abdomen. FINDINGS: LIVER: Measures 17.3 cm in sagittal dimension. Echogenic liver may be seen in setting of hepatic parenchymal disease or fatty infiltration. No focal hepatic mass identified. The main portal vein appears patent with normal directional flow. Mild intrahepatic bile duct dilatation. GALLBLADDER: No gallstones. 6 mm and 8 mm echogenic foci within the gallbladder compatible with follow-ups. No gallbladder wall thickening. Negative sonographic Powell's sign as assessed by the yoker machine operator. COMMON BILE DUCT: Measures 6 mm. PANCREAS: Not well visualized. RIGHT KIDNEY: Measures 12.4 x 5.0 x 4.7 cm. No obstructing calculus or hydronephrosis identified. LEFT KIDNEY: Measures 12.4 x 5.0 x 4.7 cm. No obstructing calculus or hydronephrosis identified. SPLEEN: Measures approximately 14.4 cm. AORTA: Limited views appear unremarkable. IVC: Limited views appear unremarkable. OTHER FINDINGS: None. IMPRESSION: Mild intrahepatic biliary ductal dilatation. Echogenic liver may be seen in setting of hepatic parenchymal disease or fatty infiltration. 6 mm and 8 mm echogenic foci within the gallbladder consistent with polyps. No consensus exist regarding management of polyps in the size range. Current recommendations indicate continued surveillance with serial follow-up imaging at 3, 6, and 12 months.
--- NOTE | 2017-05-06 22:27 | HP ---
DATE: 05/05/2017 HISTORY OF PRESENT ILLNESS: Mr. Royal is a 37-year-old male presented to the ER with left lower quadrant pain. He had nausea and vomiting. Also, fever for the past two days. He has a past history of diverticulitis. No bleeding from any site. PAST MEDICAL HISTORY: Diverticulitis. PAST SURGICAL HISTORY: Rectal abscess removed in 2016. PERSONAL HISTORY: Nonsmoker. No history of drug abuse. ALLERGIES: NO KNOWN DRUG ALLERGIES. SOCIAL HISTORY: Lives at home with . HOME MEDICATIONS: Omeprazole one tablet daily. Raquel one tablet daily. REVIEW OF SYSTEMS: As per HPI. Rest of the 12-point review of systems reviewed and negative. PHYSICAL EXAMINATION GENERAL: Comfortable in bed, in no acute distress. VITAL SIGNS: Temperature 98.8, heart rate is 65 per minute, respiratory rate is per minute, blood pressure 140/97, and pulse ox is 99% on room air. HEENT: Normal. NECK: No lymphadenopathy. CHEST: Air entry present, equal bilaterally. No added sounds. CARDIOVASCULAR: S1 and S2 normal. No murmur, no gallop. ABDOMEN: Soft and nontender. No hepatosplenomegaly. No rebound tenderness. EXTREMITIES: No edema. NUT SORTER: Alert and oriented x3. No focal sensory or motor deficits. SKIN: No petechiae, no rash. LABORATORY DATA: White count 9.9, hemoglobin 15, hematocrit 44, and platelet count 197. Sodium 139, potassium 4.3, BUN 11, creatinine 0.8 and glucose 114. UA negative. ASSESSMENT: 1. Acute diverticulitis. 2. Leukocytosis. 3. Anemia. PLAN: He will be admitted to the hospital. CAT scan of the abdomen showed left-sided diverticulitis with slight perforation. ID consultation, Dr. Waldron requested. IV antibiotic, Zosyn started. Continue Zosyn q. [address] Reina. Protonix 40 mg IV daily. IV fluids at 150 mL an hour. Toradol q. 6 hours p.r.n. 15 mg. N.p.o. for possible surgical intervention. Conchis Martin MD
--- NOTE | 2017-05-06 22:42 | PN ---
DATE: 05/06/2017 SUBJECTIVE: He is comfortable in bed in no acute distress. No nausea. No vomiting. Still n.p.o. IV fluid ongoing. Pain controlled with apparent medications. No fever overnight. REVIEW OF SYSTEMS: As per HPI. Rest of 12-point review of systems reviewed, negative. PHYSICAL EXAMINATION GENERAL: Comfortable in bed in no acute distress. VITAL SIGNS: Temperature 98.7, heart rate 80 per minute, blood pressure 140/80, respiratory rate 15 per minute. HEENT: Normal. NECK: Supple. No lymphadenopathy. CHEST: Air entry present and equal bilaterally. No added sound. CARDIOVASCULAR: S1 and S2 normal. No murmur. No gallop. ABDOMEN: Soft, nontender. No hepatosplenomegaly. No rebound tenderness. EXTREMITIES: No edema. CENTRAL NERVOUS SYSTEM: Alert and oriented x3. No focal sensory or motor deficit. LABORATORY DATA: White count 7.6, hemoglobin 13.5, hematocrit 38.6, platelet count 197. Sodium 139, potassium 4.3 and glucose 114. LFTs; mild elevation of AST, ALT. CURRENT MEDICATIONS: Tylenol 650 q. 6 hours p.r.n., tramadol 50 mg IV q. 6 hours, Protonix 40 mg daily, Zosyn and IV fluid at 150 mL an hour. ASSESSMENT: 1. Acute diverticulitis. 2. Anemia. 3. Abdominal pain. PLAN: He is currently on IV antibiotics. No surgical intervention needed. We will manage conservatively. General condition improved a lot. He is still n.p.o., we will continue that. Oral liquid once cleared by surgery. ID following. Currently on IV Zosyn, continue that. He is ambulating in the room. Conchis Martin MD
[2017-05-07] MEDS: Piperacillin/Tazobact 3.375 gm 100 ML IVPB SCH ×4 (06:44→23:08)
[2017-05-07 07:38] LABS: ALB/GLOB RATIO 1.3 (1.1-1.8); BILIRUBIN,DIRECT 0.4 mg/dL (0.0-0.4); BILIRUBIN,TOTAL 0.7 mg/dL (0.2-1.3); TOTAL PROTEIN 6.3 g/dL (5.8-8.3)
--- NOTE | 2017-05-07 08:08 | CP.PCM.PN ---
Subjective - Date & Time of Evaluation Date of Evaluation: 05/07/17 Time of Evaluation: 08:05 - Subjective Subjective: General Surgery note for Dr. Reina Patient seen and examined at bedside. No acute event overnight. Patient lying in bed comfortably. Patient states pain is well controlled with toradol. He states he had two non-bloody watery BM's this AM. Denies fever/chills, cp, sob, nausea/vomiting, constipation. Objective - Vital Signs/Intake and Output Vital Signs (last 24 hours): Temp Pulse Resp BP Pulse Ox 97.6 F 64 20 145/88 97 05/06/17 16:00 05/06/17 16:00 05/06/17 16:00 05/06/17 16:00 05/06/17 16:00 Intake and Output: 05/07/17 05/07/17 06:59 18:59 Intake Total 0 Balance 0 - Medications Medications: Current Medications Acetaminophen (Tylenol 325mg Tab) 650 mg PO Q4 PRN PRN Reason: Fever >100.4 F Piperacillin Sod/Tazobactam Sod (Zosyn 3.375 In Ns 100ml) 100 mls @ 200 mls/hr IVPB Q6 [facility] PRN Reason: Protocol Stop: 05/19/17 19:44 Last Admin: 05/07/17 06:44 Dose: 200 mls/hr Sodium Chloride (Sodium Chloride 0.9%) 1,000 mls @ 150 mls/hr IV .Q6H40M [facility] Last Admin: 05/06/17 22:40 Dose: 150 mls/hr Ketorolac Tromethamine (Toradol) 15 mg IVP Q6H PRN PRN Reason: Pain, moderate (4-7) Last Admin: 05/07/17 06:48 Dose: 15 mg Pantoprazole Sodium (Protonix Inj) 40 mg IVP DAILY [facility] Last Admin: 05/06/17 12:15 Dose: 40 mg - Labs Labs: 05/06/17 09:17 - Constitutional Appears: No Acute Distress - Head Exam Head Exam: ATRAUMATIC, NORMOCEPHALIC - Eye Exam Eye Exam: Normal appearance - ENT Exam ENT Exam: Mucous Membranes Moist - Respiratory Exam Respiratory Exam: NORMAL BREATHING PATTERN - Cardiovascular Exam Cardiovascular Exam: REGULAR RHYTHM - GI/Abdominal Exam GI & Abdominal Exam: Soft, Tenderness (mild in LLQ to deep palpation). absent: Distended, Firm, Guarding, Rigid, Rebound - Extremities Exam Extremities Exam: Normal Capillary Refill - Back Exam Back Exam: absent: CVA tenderness (L), CVA tenderness (R) - Neurological Exam Neurological Exam: Alert, Awake, Oriented x3 - Psychiatric Exam Psychiatric exam: Normal Affect, Normal Mood - Skin Skin Exam: Dry, Intact, Normal Color, Warm Assessment and Plan - Assessment and Plan (Free Text) Plan: 37 M with diverticulitis -FLD possible advance to Regular for dinner -f/u lipase, amylase and hep panel -Analgesics PRN -Continue IV antibiotics -No surgical intervention needed at this time -Will LIEN Jara PGY1
--- NOTE | 2017-05-07 11:26 | PN ---
DATE: 05/07/2017 SUBJECTIVE: The patient is in bed, in no acute distress, and nontoxic. PHYSICAL EXAMINATION: VITAL SIGNS: On exam, temperature is 97, blood pressure is 140/80, and respiratory rate of 18. HEENT: Examination of HEENT is unremarkable. NECK: Supple. LUNGS: Have decreased breath sounds. HEART: Normal S1 and S2. GASTROINTESTINAL: Abdominal examination is soft. LABORATORY DATA: Examination reveals a white count of 7.6, hemoglobin of 13, and platelets of 197. The chemistries reveals that BUN of 11 and creatinine of 0.8. LFTs are elevated. Urinalysis is noted. The patient does have greater than 300 protein. The patient's HIV is negative. Hepatitis profile is negative. Microbiology blood cultures are negative. The patient is scheduled for MRCP. MEDICATIONS: Review of orders reveals the patient to be on Zosyn. ASSESSMENT AND PLAN: This is a 37-year-old male with a family history of diverticulitis, admitted with fevers and chills and found to have acute sigmoid diverticulitis with microperforation on Zosyn day number 3. The patient also found to have liver function tests elevation and alkaline phosphatase elevation with negative hepatitis profile and negative human immunodeficiency virus. The patient's ultrasound shows no gallstones. There is 6 mm foci in a gallbladder compatible, but on follow up no gallbladder thickening and common bile duct is reported to be measures at 6 mm. The patient is scheduled for magnetic resonance cholangiopancreatography. note is appreciated. note is reviewed as far as his consultation is appreciated. I will continue to follow with you. Norman Waldron MD
[2017-05-07] MEDS ORDERED: Gadodiamide 287 MG/ML VIAL (15ML) IV ONE (12:06)
[2017-05-07] MEDS ORDERED: HYDROmorphone 0.5 mg/0.5 ml ISec IVP PRN (19:00)
--- NOTE | 2017-05-07 19:59 | PN ---
DATE: 05/07/2017 SUBJECTIVE: This patient was seen and evaluated earlier today. The patient is still complaining of intermittent episodes of suprapubic to left lower quadrant pain radiating to the back. Has loose bowel movements. PHYSICAL EXAMINATION: VITAL SIGNS: Temperature is 97.6, pulse 64, blood pressure 145/88. HEENT: Atraumatic. Anicteric. NECK: Supple. HEART: S1 and S2 heard. LUNGS: Bilateral air entry present. ABDOMEN: Soft. There is no mass palpable. There is tenderness in the epigastric and suprapubic area. There is no rebound or guarding. EXTREMITIES: No edema, no cyanosis. NEUROLOGIC: Alert and oriented, moves all the extremities. LABORATORY DATA: LFTs still show elevated. The AST has gone up to 142, ALT to 214 and alkaline phosphatase 162. The patient had MRI with MRCP done, the results are still pending. IMPRESSION: 1. This 37-year-old patient admitted with acute diverticulitis with microperforation. The patient has been on antibiotic, Zosyn. The patient is on clear liquid diet. 2. The patient has abnormal liver function tests, history of hepatitis profile negative, history of ETOH use, may be related to that. 3. Gallbladder polyp. Requested for magnetic resonance cholangiopancreatography to further evaluate the common bile duct , the results are still pending. RECOMMENDATIONS: Would recommend: 1. Follow up of the LFTs. 2. Agree with holding off Toradol. Part of enzyme elevation may be related to the antibiotics. At the moment, we will closely follow up the LFTs and followup of the MRI scan. Continue the antibiotics. The patient would need elective surgery and colonoscopy before the surgery. Thank you very much for allowing us to participate in the care of the patient. Madhu Rivera MD
--- NOTE | 2017-05-07 20:05 | PN ---
DATE: SUBJECTIVE: The patient is a 37-year-old male, who was admitted with abdominal pain. He was found to have diverticulitis. Currently, he is on clear liquid. He does not complain of much pain except left-sided discomfort. PHYSICAL EXAMINATION VITAL SIGNS: He is afebrile, pulse 64, respiration 20, and blood pressure 145/88. LUNGS: Bilateral good air flow. No rhonchi or crackle. HEART: S1 and S2 audible. ABDOMEN: Soft. Left lower quadrant discomfort, slight palpable discomfort. NEUROLOGIC: He is awake and alert, communicative and ambulatory. LABORATORY DATA: WBC 7.6, hemoglobin 13.5, hematocrit 38.6, platelet 197. Chemistry: AST 142, ALT 214, alkaline phosphatase 162. Hepatitis profile is negative. Had MRCP done that is pending. Abdominal sonogram was ordered for because of abnormal LFTs. That shows ductal dilatation. Also right upper quadrant sonogram also shows gallbladder polyp. ASSESSMENT AND PLAN: 1. Acute sigmoid diverticulitis, resolving. 2. Abnormal liver function tests, etiology is unclear. Magnetic resonance cholangiopancreatography is pending. PLAN: Currently, the patient is on clear liquid and will continue on IV fluid. He is Protonix, analgesic as needed, he is getting Zosyn, is recommended by ID. Follow up his CBC and CMP in a.m. Tiffany Prince MD
[2017-05-07] MEDS: Sodium Chloride 0.9% 1,000 ML IV SCH (20:40)
[2017-05-07] MEDS ORDERED: Sodium Chloride 0.9% 1,000 ML IV SCH (22:16)
[2017-05-07] MEDS ORDERED: HYDROmorphone 1 mg/ml ISec IVP STA (22:50)
[2017-05-08] MEDS: HYDROmorphone 1 mg/ml ISec IVP PRN ×4 (03:12→22:00)
[2017-05-08] MEDS: Piperacillin/Tazobact 3.375 gm 100 ML IVPB SCH ×4 (05:53→23:15)
[2017-05-08 07:30] LABS: BASO # 0.03 K/mm3 (0.0-2.0); BASO % 0.2 % (0.0-3.0); EOS # 0.1 (0.0-0.7); GRAN # 10.14 (1.4-6.5); GRAN % 77.5 % (50.0-68.0); HEMATOCRIT 37.8 % (42.0-52.0); LYMPH # 1.9 (1.2-3.4); LYMPH % 14.7 % (22.0-35.0); MEAN CELL VOLUME 82.5 fl (80.0-105.0); MEAN CORPUSCULAR HEMOGLOBIN 28.8 pg (25.0-35.0); MEAN CORPUSCULAR HGB CONC 34.9 g/dl (31.0-37.0); MEAN PLATELET VOLUME 9.3 fl (7.0-11.0); MONO # 0.9 (0.1-0.6); MONO % 6.6 % (1.0-6.0); RED CELL DISTRIBUTION WIDTH 12.7 % (11.5-14.5); WHITE BLOOD COUNT 13.1 10^3/ul (4.5-11.0)
[2017-05-08 07:37] LABS: ALB/GLOB RATIO 1.2 (1.1-1.8); ALKALINE PHOSPHATASE 148 U/L (38-126); ALT/SGPT 176 U/L (7-56); AST/SGOT 82 U/L (17-59); BILIRUBIN,DIRECT 0.5 mg/dL (0.0-0.4); BILIRUBIN,TOTAL 0.8 mg/dL (0.2-1.3); BLOOD UREA NITROGEN 5 mg/dL (7-21); CALCIUM 8.5 mg/dL (8.4-10.5); CARBON DIOXIDE 22 mmol/L (21-33); CHLORIDE 102 mmol/L (98-107); GFR AFRICAN-AMERICAN > 60; GLUCOSE,RANDOM 71 mg/dL (70-110); LIPASE 136 U/L (23-300); POTASSIUM 3.4 mmol/L (3.6-5.0); SODIUM 138 mmol/L (132-148)
[2017-05-08 07:38] LABS: AMYLASE < 30 U/L (35-125)
[2017-05-08] MEDS ORDERED: Sodium Chloride 0.9% 1,000 ML IV SCH (09:41)
--- NOTE | 2017-05-08 11:14 | CP.PCM.PN ---
Subjective - Date & Time of Evaluation Date of Evaluation: 05/08/17 Time of Evaluation: 07:30 - Subjective Subjective: General Surgery- Dr. Reina Pt S&E at bedside this AM. No acute events overnight. complaining LLQ pain that has been well controlled with 0.5 dilaudid. Pt NPO, +OOB. Denies current F/C CP/ SOB N/V/D Objective - Vital Signs/Intake and Output Vital Signs (last 24 hours): Temp Pulse Resp BP Pulse Ox 99.1 F 60 19 131/81 97 05/07/17 23:30 05/07/17 23:30 05/07/17 23:30 05/07/17 23:30 05/07/17 23:30 Intake and Output: 05/08/17 05/08/17 06:59 18:59 Intake Total 300 Output Total 900 Balance -600 - Medications Medications: Current Medications Acetaminophen (Tylenol 325mg Tab) 650 mg PO Q4 PRN PRN Reason: Fever >100.4 F Heparin Sodium (Porcine) (Heparin) 5,000 units SC Q12 [facility] PRN Reason: Protocol Hydromorphone HCl (Dilaudid) 1 mg IVP Q4H PRN PRN Reason: Pain, severe (8-10) Last Admin: 05/08/17 07:56 Dose: 1 mg Piperacillin Sod/Tazobactam Sod (Zosyn 3.375 In Ns 100ml) 100 mls @ 200 mls/hr IVPB Q6 [facility] PRN Reason: Protocol Stop: 05/19/17 19:44 Last Admin: 05/08/17 05:53 Dose: 200 mls/hr Sodium Chloride (Sodium Chloride 0.9%) 1,000 mls @ 125 mls/hr IV .Q8H [facility] Potassium Chloride (Potassium Chloride 20 Meq/100 Ml) 20 meq in 100 mls @ 50 mls/hr IVPB ONCE ONE Stop: 05/08/17 12:02 Last Admin: 05/08/17 10:57 Dose: 50 mls/hr Ketorolac Tromethamine (Toradol) 15 mg IVP Q6H PRN PRN Reason: Pain, moderate (4-7) Last Admin: 05/07/17 06:48 Dose: 15 mg Mupirocin (Bactroban Ointment) 0 gm TOP BID [facility] Last Admin: 05/08/17 10:57 Dose: 1 appl Pantoprazole Sodium (Protonix Inj) 40 mg IVP DAILY [facility] Last Admin: 05/08/17 09:24 Dose: 40 mg Tramadol HCl (Ultram) 50 mg PO Q6H PRN PRN Reason: Pain, moderate (4-7) Last Admin: 05/07/17 14:50 Dose: 50 mg - Labs Labs: 05/08/17 06:30 05/08/17 06:30 - Constitutional Appears: Non-toxic, No Acute Distress - Head Exam Head Exam: ATRAUMATIC - Eye Exam Eye Exam: EOMI. absent: Scleral icterus - ENT Exam ENT Exam: Mucous Membranes Moist - Respiratory Exam Respiratory Exam: NORMAL BREATHING PATTERN. absent: Accessory Muscle Use, Respiratory Distress - Cardiovascular Exam Cardiovascular Exam: +S1, +S2. absent: Bradycardia, Tachycardia - GI/Abdominal Exam GI & Abdominal Exam: Soft. absent: Distended, Tenderness - Neurological Exam Neurological Exam: Alert, Awake, Oriented x3 - Psychiatric Exam Psychiatric exam: Normal Affect - Skin Skin Exam: Dry Assessment and Plan - Assessment and Plan (Free Text) Assessment: 37 M with diverticulitis, leukocytosis Plan: - NPO - if febrile will order CT scan w/ IV contrast - pain control - Continue IV antibiotics per ID recs - No surgical intervention needed at this time - f/u MRCP official read; GI recs appreciated - GI/DVT PPx - further recs Dr. Nuno Hobson PGY1
--- NOTE | 2017-05-08 14:53 | PN ---
DATE: 05/08/2017 SUBJECTIVE: The patient is in bed in no acute distress and he is still having some abdominal pain. PHYSICAL EXAMINATION: VITAL SIGNS: On exam, temperature is 98, blood pressure is 120/70, and respiratory rate of 16. HEENT: Unremarkable. NECK: Supple. LUNGS: Decreased breath sounds. HEART: Normal S1 and S2. ABDOMEN: Examination is soft and nontender. LABORATORY EXAMINATION: Reveals a white count of 13,100, hemoglobin of 13, platelets of 298 with the granulocytes 77%. Chemistries reveals a BUN of 5 and creatinine 0.7. Urinalysis is noted. Serology is negative. HIV is negative. Microbiology blood cultures are negative. Hemoglobin A1c is 6.2. The patient was initially admitted with LFTs elevations. ALT of 127 and the patient initially admitted with a high alkaline phosphatase and random glucose is elevated. The patient is currently on Zosyn tolerating the antibiotic well. The patient had an MRCP done yesterday. ASSESSMENT AND PLAN: This is a 37-year-old male with past medical history of diverticulitis, admitted with fevers and chills and found to have acute sigmoid diverticulitis with microperforation on day #4 of Zosyn. On admission, the patient already had an elevated liver function tests and alkaline phosphatase and he has significant greater than 300 proteinuria on the urinalysis, etiology of which is not entirely clear. Recommended a renal consultation and proteinuria workup. Hepatitis profile is negative. The patient had an MRCP, the results are pending. We will continue the Zosyn and continue the present workup. Norman Waldron MD
--- NOTE | 2017-05-08 18:26 | MRI ---
PROCEDURE: Magnetic Resonance Cholangiopancreatography HISTORY: Gallbladder polyp, elevated LFTs COMPARISON: Comparison is made to the previous ultrasound of the abdomen dated 05/06/2017 CT of the abdomen and pelvis dated 05/05/2017. TECHNIQUE: Multiplanar, multisequence MR images of the abdomen were obtained, including heavily T2 weighted MRCP images of the biliary system. Rotating maximum intensity projection images of the biliary system were generated. 15 mL of Omniscan was injected intravenously. FINDINGS: MRCP: The common bile duct is of a normal caliber. No evidence of choledocholithiasis. No intrahepatic biliary ductal dilatation. LIVER: No evidence of acute pathology or suspicious lesion in the liver. Mild hepatic steatosis noted. GALLBLADDER: There are at least 3 polyps seen protruding from the gallbladder wall demonstrate mild hyperintense T1 signal. Findings likely represent cholesterol polyposis. No evidence of gallstones or acute cholecystitis. SPLEEN: Unremarkable. PANCREAS: Unremarkable. ADRENALS: Unremarkable. KIDNEYS: Unremarkable. AORTA: No aneurysm. ASCITES: None. OTHER FINDINGS: None. 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 No evidence of cholelithiasis or cholecystitis. Mild hepatic steatosis. No evidence of choledocholithiasis or biliary ductal dilatation. Preliminary report was submitted by virtual Radiology.
--- NOTE | 2017-05-08 19:33 | PN ---
DATE: SUBJECTIVE: The patient is 37 years old, seen and examined, lying in bed. He complained of left lower quadrant pain. Does not have nausea. PHYSICAL EXAMINATION VITAL SIGNS: He has temperature of 99.1, pulse 60, respirations 19, and blood pressure 131/81. LUNGS: Bilateral fair air flow. No rhonchi or crackle. HEART: S1 and S2 audible. ABDOMEN: Soft. Left lower quadrant and suprapubic discomfort. NEUROLOGIC: He is awake, alert, oriented, and communicative. LABORATORY DATA: WBC 13.1, hemoglobin 13.2, hematocrit 37.8, platelet count 298. Sodium 138, potassium 3.4, chloride 102, CO2 22, BUN 5, creatinine 0.7, blood sugar of 71. AST 82, ALT 176, alkaline phosphatase is 148. MRCP is pending. ASSESSMENT AND PLAN: 1. Sigmoid diverticulitis. 2. New bump in white count. 3. Abnormal liver function test, seems to be improving, probably drug-induced, but we will follow up if there is any obstruction in biliary tract. PLAN: For now, the patient is n.p.o. We will continue on IV fluid. Monitor electrolytes. Potassium has been supplemented. Discuss with Dr. Reina if the patient spikes fever, his white count seems to be going up further, he might need surgical intervention. Tiffany Prince MD
[2017-05-09] MEDS: HYDROmorphone 1 mg/ml ISec IVP PRN ×2 (03:43→17:32)
--- NOTE | 2017-05-09 04:00 | PN ---
DATE: 05/08/2017 SUBJECTIVE: This patient was seen and evaluated earlier today. Discussed with the surgical pathologist also and nursing staff. Overall, he feels much better than compared to yesterday, but still remains n.p.o. The diet has been changed to n.p.o. yesterday, as the patient did complain of significant abdominal discomfort yesterday. Today, he feels much improved. PHYSICAL EXAMINATION: GENERAL: The patient is lying on the bed, not in acute distress. VITAL SIGNS: Temperature is 99.1, blood pressure 131/81, pulse 60, respirations 19 and O2 saturation 97%. HEENT: Atraumatic. Anicteric. NECK: Supple. HEART: S* and S2 heard. LUNGS: Bilateral air entry present. ABDOMEN: Soft. Tenderness in the suprapubic and left lower quadrant. No rebound or guarding. EXTREMITIES: No edema. No cyanosis. NEUROLOGIC: Alert and oriented, moves all the extremities. LABORATORY DATA: WBC 13.1, hemoglobin 13.2, hematocrit 37.8, platelets 298. LFT shows downward trend. AST has come down to 82, ALT to 176 and alkaline phosphatase 148. Potassium was 3.4. IMPRESSION: 1. This 37-year-old patient admitted with acute diverticulitis with microperforation. The patient has been on antibiotic of Zosyn. The patient is placed on n.p.o. yesterday by the surgical team. The patient complains of significant abdominal pain again. Today, feeling better, can resume the clear liquid diet. The patient would benefit from repeating the CAT scan in another 24 to 48 hours time to evaluate the clinical progress of this acute diverticulitis with microperforation before advancing the solid food. 2. Abnormal liver function tests, improving overall, could be related to the EtOH use. The patient was saying that she was slightly increased more alcohol for the last few days. 3. The gallbladder polyp. The MRI findings noticed. The reasonable thing is to consider gallbladder polyp, there are small polyps noticed. It could be due to cholesterol polyp, adenomyomatosis. I would consider electively repeating the ultrasound scan in another 3 to 4 months time and followup. 4. Family history of pancreatic cancer. The MRI did not show any focal lesion, a view was done in the past was also negative; however, he needs close monitoring. 5. I would consider repeating the CT in about 48 hours' time to evaluate the clinical progress of the acute diverticulitis with microperforation before advancing into soft diet. Thank you very much for allowing us to participate in the care of the patient. Madhu Rivera MD
[2017-05-09] MEDS: Piperacillin/Tazobact 3.375 gm 100 ML IVPB SCH ×4 (06:10→23:10)
[2017-05-09 07:25] LABS: BASO # 0.03 K/mm3 (0.0-2.0); BASO % 0.3 % (0.0-3.0); EOS # 0.2 (0.0-0.7); EOS % 1.7 % (1.5-5.0); GRAN # 9.18 (1.4-6.5); GRAN % 76.4 % (50.0-68.0); HEMATOCRIT 38.1 % (42.0-52.0); LYMPH # 1.7 (1.2-3.4); LYMPH % 14.4 % (22.0-35.0); MEAN CELL VOLUME 82.6 fl (80.0-105.0); MEAN CORPUSCULAR HEMOGLOBIN 28.4 pg (25.0-35.0); MEAN CORPUSCULAR HGB CONC 34.4 g/dl (31.0-37.0); MEAN PLATELET VOLUME 8.6 fl (7.0-11.0); MONO # 0.9 (0.1-0.6); MONO % 7.2 % (1.0-6.0); RED CELL DISTRIBUTION WIDTH 12.7 % (11.5-14.5)
[2017-05-09 07:32] LABS: ALB/GLOB RATIO 1.2 (1.1-1.8); ALKALINE PHOSPHATASE 121 U/L (38-126); ALT/SGPT 147 U/L (7-56); AST/SGOT 56 U/L (17-59); BILIRUBIN,DIRECT 0.6 mg/dL (0.0-0.4); BILIRUBIN,TOTAL 0.9 mg/dL (0.2-1.3); BLOOD UREA NITROGEN 6 mg/dL (7-21); CALCIUM 8.6 mg/dL (8.4-10.5); CARBON DIOXIDE 21 mmol/L (21-33); CHLORIDE 106 mmol/L (95-110); GFR AFRICAN-AMERICAN > 60; GLUCOSE,RANDOM 75 mg/dL (70-110); POTASSIUM 3.6 mmol/L (3.6-5.0); SODIUM 139 mmol/L (132-148); TOTAL PROTEIN 6.8 g/dL (5.8-8.3)
[2017-05-09] MEDS ORDERED: Barium Sulfate Susp 2.1% w/v, 2.0% w/w 450 mL Bottle PO ONE ×2 (09:18→20:12)
[2017-05-09 09:23] LABS: URINE BILIRUBIN NEGATIVE (NEGATIVE); URINE BLOOD SMALL (NEGATIVE); URINE GLUCOSE (UA) NEGATIVE (NEGATIVE); URINE KETONE 15 mg/dL (NEGATIVE); URINE LEUKOCYTE ESTERASE NEGATIVE Leu/uL (NEGATIVE); URINE PROTEIN TRACE mg/dL (<30 mg/dL); URINE UROBILINOGEN 0.2 E.U./dL (<1 E.U./dL)
[2017-05-09 09:29] LABS: URINE APPEARANCE CLEAR (CLEAR); URINE COLOR YELLOW (YELLOW)
[2017-05-09 09:34] LABS: URINE RBC 0 - 2 /hpf (0-2); URINE WBC NEGATIVE /hpf (0-6)
--- NOTE | 2017-05-09 11:47 | CP.PCM.PN ---
<Janet Mcqueen - Last Filed: 05/09/17 13:43> Subjective - Date & Time of Evaluation Date of Evaluation: 05/09/17 Time of Evaluation: 11:45 - Subjective Subjective: PGY-[address] Abrams Patient seen and examined at bedside. No acute distress. Patient states that originally pain was located in LLQ but over the weekend pain moved towards the midline. Patient is currently NPO. He states pain is controlled. Objective - Vital Signs/Intake and Output Vital Signs (last 24 hours): Temp Pulse Resp BP Pulse Ox 99.1 F 60 19 131/81 97 05/07/17 23:30 05/07/17 23:30 05/07/17 23:30 05/07/17 23:30 05/07/17 23:30 Intake and Output: 05/09/17 05/09/17 06:59 18:59 Intake Total 0 Output Total 300 Balance -300 - Medications Medications: Current Medications Acetaminophen (Tylenol 325mg Tab) 650 mg PO Q4 PRN PRN Reason: Fever >100.4 F Heparin Sodium (Porcine) (Heparin) 5,000 units SC Q12 [facility] PRN Reason: Protocol Last Admin: 05/09/17 09:56 Dose: Not Given Hydromorphone HCl (Dilaudid) 1 mg IVP Q4H PRN PRN Reason: Pain, severe (8-10) Last Admin: 05/09/17 03:43 Dose: 1 mg Piperacillin Sod/Tazobactam Sod (Zosyn 3.375 In Ns 100ml) 100 mls @ 200 mls/hr IVPB Q6 [facility] PRN Reason: Protocol Stop: 05/19/17 19:44 Last Admin: 05/09/17 06:10 Dose: 200 mls/hr Sodium Chloride (Sodium Chloride 0.9%) 1,000 mls @ 75 mls/hr IV .[id number] [facility] Ketorolac Tromethamine (Toradol) 15 mg IVP Q6H PRN PRN Reason: Pain, moderate (4-7) Last Admin: 05/07/17 06:48 Dose: 15 mg Mupirocin (Bactroban Ointment) 0 gm TOP BID [facility] Last Admin: 05/09/17 09:55 Dose: 1 appl Pantoprazole Sodium (Protonix Inj) 40 mg IVP DAILY [facility] Last Admin: 05/09/17 09:55 Dose: 40 mg Tramadol HCl (Ultram) 50 mg PO Q6H PRN PRN Reason: Pain, moderate (4-7) Last Admin: 05/07/17 14:50 Dose: 50 mg - Labs Labs: 05/09/17 07:16 05/09/17 07:16 - Constitutional Appears: No Acute Distress - Head Exam Head Exam: ATRAUMATIC, NORMAL INSPECTION, NORMOCEPHALIC - Eye Exam Eye Exam: EOMI, Normal appearance - ENT Exam ENT Exam: Mucous Membranes Moist - Respiratory Exam Respiratory Exam: Clear to Ausculation Bilateral, NORMAL BREATHING PATTERN. absent: Rales, Rhonchi, Wheezes, Respiratory Distress - Cardiovascular Exam Cardiovascular Exam: REGULAR RHYTHM, +S1, +S2. absent: Tachycardia, Murmur - GI/Abdominal Exam GI & Abdominal Exam: Soft, Tenderness (mild ), Normal Bowel Sounds. absent: Distended, Firm, Guarding - Extremities Exam Extremities Exam: Normal Inspection. absent: Pedal Edema, Tenderness - Neurological Exam Neurological Exam: Alert, Awake, Oriented x3 - Psychiatric Exam Psychiatric exam: Normal Affect, Normal Mood - Skin Skin Exam: Dry, Intact, Normal Color, Warm Assessment and Plan - Assessment and Plan (Free Text) Assessment: 37 yo male with PMH of diverticulitis presented with acute sigmoid diverticulitis and elevated LFTs. Over weekend patient had new leukocytosis. Plan: 1. sigmoid diverticulitis with mirco perforation - patient had increase in WBC over weekend without fever, possibly due to abscess - CT abd with PO and IV contrast ordered - MRCP showed gallbladder polyp, no cholelithiasis/cholecystitis, mild hepatic steatosis - cont zosyn - Dilaudid for pain - NPO, cont IVF at 75cc/hr - blood cultures negative - GI, ID and surgery following 2. elevated LFTs - probably due to medication vs ETOH - downtrending - viral hepatitis panel negative GI/DVT ppx <Gurpreet Abrams - Last Filed: 05/09/17 17:17> Objective - Vital Signs/Intake and Output Vital Signs (last 24 hours): Temp Pulse Resp BP Pulse Ox 98.4 F 73 20 134/92 H 100 05/09/17 06:00 05/09/17 06:00 05/09/17 06:00 05/09/17 06:00 05/09/17 06:00 Intake and Output: 05/09/17 05/09/17 06:59 18:59 Intake Total 0 480 Output Total 300 Balance -300 480 - Medications Medications: Current Medications Acetaminophen (Tylenol 325mg Tab) 650 mg PO Q4 PRN PRN Reason: Fever >100.4 F Heparin Sodium (Porcine) (Heparin) 5,000 units SC Q12 [facility] PRN Reason: Protocol Last Admin: 05/09/17 09:56 Dose: Not Given Hydromorphone HCl (Dilaudid) 1 mg IVP Q4H PRN PRN Reason: Pain, severe (8-10) Last Admin: 05/09/17 03:43 Dose: 1 mg Piperacillin Sod/Tazobactam Sod (Zosyn 3.375 In Ns 100ml) 100 mls @ 200 mls/hr IVPB Q6 [facility] PRN Reason: Protocol Stop: 05/19/17 19:44 Last Admin: 05/09/17 12:04 Dose: 200 mls/hr Sodium Chloride (Sodium Chloride 0.9%) 1,000 mls @ 75 mls/hr IV .[id number] [facility] Metronidazole (Flagyl) 500 mg in 100 mls @ 100 mls/hr IVPB Q8 [facility] PRN Reason: Protocol Ketorolac Tromethamine (Toradol) 15 mg IVP Q6H PRN PRN Reason: Pain, moderate (4-7) Last Admin: 05/07/17 06:48 Dose: 15 mg Mupirocin (Bactroban Ointment) 0 gm TOP BID [facility] Last Admin: 05/09/17 09:55 Dose: 1 appl Pantoprazole Sodium (Protonix Inj) 40 mg IVP DAILY [facility] Last Admin: 05/09/17 09:55 Dose: 40 mg Tramadol HCl (Ultram) 50 mg PO Q6H PRN PRN Reason: Pain, moderate (4-7) Last Admin: 05/07/17 14:50 Dose: 50 mg - Labs Labs: 05/09/17 07:16 05/09/17 07:16 Assessment and Plan - Assessment and Plan (Free Text) Plan: Pt seen and examined. Agree with above note of resident. Meds and labs reviewed. improving diverticulitis. On pain meds and Zosyn. GI and surgery following. Follow labs. Pt is NPO will need to advance diet.
--- NOTE | 2017-05-09 12:00 | CP.PCM.PN ---
Subjective - Date & Time of Evaluation Date of Evaluation: 05/09/17 Time of Evaluation: 07:00 - Subjective Subjective: General Surgery Note for Dr. Reina Patient seen and examined at bedside. No acute events overnight. Patient lying in bed comfortably. Patient states pain has improved and well controlled. Denies fever/chills, CP, SOB, n/v/d. Objective - Vital Signs/Intake and Output Vital Signs (last 24 hours): Temp Pulse Resp BP Pulse Ox 99.1 F 60 19 131/81 97 05/07/17 23:30 05/07/17 23:30 05/07/17 23:30 05/07/17 23:30 05/07/17 23:30 Intake and Output: 05/09/17 05/09/17 06:59 18:59 Intake Total 0 Output Total 300 Balance -300 - Medications Medications: Current Medications Acetaminophen (Tylenol 325mg Tab) 650 mg PO Q4 PRN PRN Reason: Fever >100.4 F Heparin Sodium (Porcine) (Heparin) 5,000 units SC Q12 [facility] PRN Reason: Protocol Last Admin: 05/09/17 09:56 Dose: Not Given Hydromorphone HCl (Dilaudid) 1 mg IVP Q4H PRN PRN Reason: Pain, severe (8-10) Last Admin: 05/09/17 03:43 Dose: 1 mg Piperacillin Sod/Tazobactam Sod (Zosyn 3.375 In Ns 100ml) 100 mls @ 200 mls/hr IVPB Q6 [facility] PRN Reason: Protocol Stop: 05/19/17 19:44 Last Admin: 05/09/17 06:10 Dose: 200 mls/hr Sodium Chloride (Sodium Chloride 0.9%) 1,000 mls @ 75 mls/hr IV .[id number] [facility] Ketorolac Tromethamine (Toradol) 15 mg IVP Q6H PRN PRN Reason: Pain, moderate (4-7) Last Admin: 05/07/17 06:48 Dose: 15 mg Mupirocin (Bactroban Ointment) 0 gm TOP BID [facility] Last Admin: 05/09/17 09:55 Dose: 1 appl Pantoprazole Sodium (Protonix Inj) 40 mg IVP DAILY [facility] Last Admin: 05/09/17 09:55 Dose: 40 mg Tramadol HCl (Ultram) 50 mg PO Q6H PRN PRN Reason: Pain, moderate (4-7) Last Admin: 05/07/17 14:50 Dose: 50 mg - Labs Labs: 05/09/17 07:16 05/09/17 07:16 - Constitutional Appears: No Acute Distress - Head Exam Head Exam: ATRAUMATIC, NORMOCEPHALIC - Eye Exam Eye Exam: Normal appearance - ENT Exam ENT Exam: Mucous Membranes Moist - Respiratory Exam Respiratory Exam: NORMAL BREATHING PATTERN - Cardiovascular Exam Cardiovascular Exam: REGULAR RHYTHM - GI/Abdominal Exam GI & Abdominal Exam: Soft. absent: Distended, Firm, Guarding, Tenderness, Rebound - Extremities Exam Extremities Exam: Normal Capillary Refill - Neurological Exam Neurological Exam: Alert, Awake, Oriented x3 - Psychiatric Exam Psychiatric exam: Normal Affect, Normal Mood - Skin Skin Exam: Dry, Intact, Normal Color, Warm Assessment and Plan - Assessment and Plan (Free Text) Plan: 37 M with diverticulitis - NPO - CT scan w/ PO & IV contrast - if negative then will start liquids - pain control - Monitor WBC - IV antibiotics as per ID - f/u GI recommendations - No surgical intervention at this time - LIEN Jara PGY1
--- NOTE | 2017-05-09 12:14 | CP.PCM.PN ---
<Jacey May - Last Filed: 05/09/17 12:13> Subjective - Date & Time of Evaluation Date of Evaluation: 05/09/17 Time of Evaluation: 09:50 - Subjective Subjective: Seen and examined at the bedside earlier this morning, he is going for a repeat CT scan, tolerated oral contrast. Denies nausea, vomiting, fever or chills. Abdominal pain is improved. Had a formed BM, no reports of any bleeding. Objective - Vital Signs/Intake and Output Vital Signs (last 24 hours): Temp Pulse Resp BP Pulse Ox 99.1 F 60 19 131/81 97 05/07/17 23:30 05/07/17 23:30 05/07/17 23:30 05/07/17 23:30 05/07/17 23:30 Intake and Output: 05/09/17 05/09/17 06:59 18:59 Intake Total 0 Output Total 300 Balance -300 - Medications Medications: Current Medications Acetaminophen (Tylenol 325mg Tab) 650 mg PO Q4 PRN PRN Reason: Fever >100.4 F Heparin Sodium (Porcine) (Heparin) 5,000 units SC Q12 [facility] PRN Reason: Protocol Last Admin: 05/09/17 09:56 Dose: Not Given Hydromorphone HCl (Dilaudid) 1 mg IVP Q4H PRN PRN Reason: Pain, severe (8-10) Last Admin: 05/09/17 03:43 Dose: 1 mg Piperacillin Sod/Tazobactam Sod (Zosyn 3.375 In Ns 100ml) 100 mls @ 200 mls/hr IVPB Q6 [facility] PRN Reason: Protocol Stop: 05/19/17 19:44 Last Admin: 05/09/17 12:04 Dose: 200 mls/hr Sodium Chloride (Sodium Chloride 0.9%) 1,000 mls @ 75 mls/hr IV .[id number] [facility] Ketorolac Tromethamine (Toradol) 15 mg IVP Q6H PRN PRN Reason: Pain, moderate (4-7) Last Admin: 05/07/17 06:48 Dose: 15 mg Mupirocin (Bactroban Ointment) 0 gm TOP BID [facility] Last Admin: 05/09/17 09:55 Dose: 1 appl Pantoprazole Sodium (Protonix Inj) 40 mg IVP DAILY [facility] Last Admin: 05/09/17 09:55 Dose: 40 mg Tramadol HCl (Ultram) 50 mg PO Q6H PRN PRN Reason: Pain, moderate (4-7) Last Admin: 05/07/17 14:50 Dose: 50 mg - Labs Labs: 05/09/17 07:16 05/09/17 07:16 - Constitutional Appears: No Acute Distress - Head Exam Head Exam: NORMOCEPHALIC - Eye Exam Eye Exam: Scleral icterus. absent: Normal appearance - ENT Exam ENT Exam: Mucous Membranes Moist - Neck Exam Neck Exam: Normal Inspection - Respiratory Exam Respiratory Exam: NORMAL BREATHING PATTERN. absent: Respiratory Distress - Cardiovascular Exam Cardiovascular Exam: +S1, +S2 - GI/Abdominal Exam GI & Abdominal Exam: Soft, Tenderness (mild), Normal Bowel Sounds. absent: Guarding, Organomegaly, Rebound - Extremities Exam Extremities Exam: Normal Capillary Refill. absent: Calf Tenderness, Pedal Edema - Neurological Exam Neurological Exam: Alert, Awake, Oriented x3 Assessment and Plan - Assessment and Plan (Free Text) Assessment: Assessment: Acute diverticulitis with microperforation GB:choleterol polyposis, s/p abdominal US and MRCP, no acute findings GERD Elevated liver enzymes, improving History of esophageal ulcer History of Trejo's esophagus History of colon polyps Plan: Nothing by mouth, continue IV fluids continue Protonix 40 mg IVP Continue IV antibiotics as per ID, on Zosyn trend LFT DVT prophylaxsis FU ct scan, if improved and patient improved abdominal pain, consider clear liquids. await scan. Surgical follow-up Seen and discussed with Dr. Rivera. <Madhu Rivera V - Last Filed: 05/09/17 19:00> Objective - Vital Signs/Intake and Output Vital Signs (last 24 hours): Temp Pulse Resp BP Pulse Ox 98.4 F 73 20 134/92 H 100 05/09/17 06:00 05/09/17 06:00 05/09/17 06:00 05/09/17 06:00 05/09/17 06:00 Intake and Output: 05/09/17 05/09/17 06:59 18:59 Intake Total 0 480 Output Total 300 Balance -300 480 - Medications Medications: Current Medications Acetaminophen (Tylenol 325mg Tab) 650 mg PO Q4 PRN PRN Reason: Fever >100.4 F Heparin Sodium (Porcine) (Heparin) 5,000 units SC Q12 [facility] PRN Reason: Protocol Last Admin: 05/09/17 09:56 Dose: Not Given Hydromorphone HCl (Dilaudid) 1 mg IVP Q4H PRN PRN Reason: Pain, severe (8-10) Last Admin: 05/09/17 17:32 Dose: 1 mg Piperacillin Sod/Tazobactam Sod (Zosyn 3.375 In Ns 100ml) 100 mls @ 200 mls/hr IVPB Q6 [facility] PRN Reason: Protocol Stop: 05/19/17 19:44 Last Admin: 05/09/17 17:31 Dose: 200 mls/hr Sodium Chloride (Sodium Chloride 0.9%) 1,000 mls @ 75 mls/hr IV .[id number] [facility] Last Admin: 05/09/17 17:48 Dose: 75 mls/hr Metronidazole (Flagyl) 500 mg in 100 mls @ 100 mls/hr IVPB Q8 [facility] PRN Reason: Protocol Last Admin: 05/09/17 18:51 Dose: 100 mls/hr Ketorolac Tromethamine (Toradol) 15 mg IVP Q6H PRN PRN Reason: Pain, moderate (4-7) Last Admin: 05/07/17 06:48 Dose: 15 mg Mupirocin (Bactroban Ointment) 0 gm TOP BID [facility] Last Admin: 05/09/17 09:55 Dose: 1 appl Pantoprazole Sodium (Protonix Inj) 40 mg IVP DAILY [facility] Last Admin: 05/09/17 09:55 Dose: 40 mg Tramadol HCl (Ultram) 50 mg PO Q6H PRN PRN Reason: Pain, moderate (4-7) Last Admin: 05/07/17 14:50 Dose: 50 mg - Labs Labs: 05/09/17 07:16 05/09/17 07:16 Attending/Attestation - Attestation I have personally seen and examined this patient.: Yes I have fully participated in the care of the patient.: Yes I have reviewed all pertinent clinical information, including history, physical exam and plan: Yes Notes (Text): This is an addendum to GI progress report dictated by Jacey May APN.The patient was seen and examined earlier. Medical records, lab studies, imagings were reviewed. Last 24 hours events reviewed. Agreed with the above treatment plan as outlined in Jacey May APN's notes the with the addition of the following Patient feels much better abdominal pain has significantly improved The CT scan however showed a possible abscess collection and a thickening of the distal ileum segment close to the inflammatory area. IR evaluation has been requested by surgeon. We will follow-up LFTs shows a downward trend 05/09/17 18:58
[2017-05-09] MEDS ORDERED: Iohexol 350 MG/100 ML VIAL ONE (13:20)
--- NOTE | 2017-05-09 14:26 | CT ---
PROCEDURE: CT Abdomen and Pelvis with contrast HISTORY: abd pain, wbc elevated still COMPARISON: 05/05/2017 TECHNIQUE: Contrast dose: 100 mL Omnipaque 350 Radiation dose: Total exam DLP = 1258.13 mGy-cm. This CT exam was performed using one or more of the following dose reduction techniques: Automated exposure control, adjustment of the mA and/or kV according to patient size, and/or use of iterative reconstruction technique. FINDINGS: Please note that the examination is grossly limited due to extensive patient motion artifact. LOWER THORAX: Unremarkable. LIVER: Unremarkable. No gross lesion or ductal dilatation. GALLBLADDER AND BILE DUCTS: Unremarkable. PANCREAS: Unremarkable. No gross lesion or ductal dilatation. SPLEEN: Unremarkable. ADRENALS: Unremarkable. No mass. KIDNEYS AND URETERS: Unremarkable. No hydronephrosis. No solid mass. VASCULATURE: Unremarkable. No aortic aneurysm. BOWEL: There is acute sigmoid diverticulitis. There is extensive mural thickening of the sigmoid colon. There is a bilobed abscess along the superior aspect of the distal sigmoid colon, measuring approximately 2.4 x 3.4 x 4.4 cm. There is both fluid and gas seen within this abscess. There is circumferential mural thickening of a short segment of distal but not the terminal ileum as it extends along the right lateral aspect of this abscess. This mural thickening is likely secondary to the adjacent abscess. There are no other abnormal bowel loops identified. APPENDIX: Normal appendix. PERITONEUM: Unremarkable. No free fluid. No free air. LYMPH NODES: Unremarkable. No enlarged lymph nodes. BLADDER: Poorly distended REPRODUCTIVE: Normal prostate BONES: No acute fracture. OTHER FINDINGS: None. IMPRESSION: Acute sigmoid diverticulitis. Pericolonic abscess measuring 4.4 cm in greatest dimension containing both fluid and gas. Thickened loops of ileum along the right lateral aspect of the abscess, likely secondary to inflammatory change from the abscess.
[2017-05-09] MEDS: Sodium Chloride 0.9% 1,000 ML IV SCH ×2 (17:48→22:10)
[2017-05-09] MEDS: metroNIDAZOLE IV 500 mg/100 ml 500 MG/100 ML BAG IVPB SCH ×2 (18:51→22:10)
--- NOTE | 2017-05-09 18:54 | CP.PCM.PN ---
Subjective - Date & Time of Evaluation Date of Evaluation: 05/09/17 Time of Evaluation: 12:35 - Subjective Subjective: Comfortable, no fevers. Abdominal pain has improved. Objective - Vital Signs/Intake and Output Vital Signs (last 24 hours): Temp Pulse Resp BP Pulse Ox 99.1 F 60 19 131/81 97 05/07/17 23:30 05/07/17 23:30 05/07/17 23:30 05/07/17 23:30 05/07/17 23:30 Intake and Output: 05/09/17 05/09/17 06:59 18:59 Intake Total 0 Output Total 300 Balance -300 - Medications Medications: Current Medications Acetaminophen (Tylenol 325mg Tab) 650 mg PO Q4 PRN PRN Reason: Fever >100.4 F Heparin Sodium (Porcine) (Heparin) 5,000 units SC Q12 [facility]OCK PRN Reason: Protocol Last Admin: 05/09/17 09:56 Dose: Not Given Hydromorphone HCl (Dilaudid) 1 mg IVP Q4H PRN PRN Reason: Pain, severe (8-10) Last Admin: 05/09/17 03:43 Dose: 1 mg Piperacillin Sod/Tazobactam Sod (Zosyn 3.375 In Ns 100ml) 100 mls @ 200 mls/hr IVPB Q6 [place]OCK PRN Reason: Protocol Stop: 05/19/17 19:44 Last Admin: 05/09/17 06:10 Dose: 200 mls/hr Sodium Chloride (Sodium Chloride 0.9%) 1,000 mls @ 75 mls/hr IV .[id number] [facility] Ketorolac Tromethamine (Toradol) 15 mg IVP Q6H PRN PRN Reason: Pain, moderate (4-7) Last Admin: 05/07/17 06:48 Dose: 15 mg Mupirocin (Bactroban Ointment) 0 gm TOP BID [facility] Last Admin: 05/09/17 09:55 Dose: 1 appl Pantoprazole Sodium (Protonix Inj) 40 mg IVP DAILY [facility] Last Admin: 05/09/17 09:55 Dose: 40 mg Tramadol HCl (Ultram) 50 mg PO Q6H PRN PRN Reason: Pain, moderate (4-7) Last Admin: 05/07/17 14:50 Dose: 50 mg - Labs Labs: 05/09/17 07:16 05/09/17 07:16 - Constitutional Appears: Non-toxic, No Acute Distress - Head Exam Head Exam: NORMAL INSPECTION - Respiratory Exam Respiratory Exam: Decreased Breath Sounds - Cardiovascular Exam Cardiovascular Exam: +S1, +S2 - GI/Abdominal Exam GI & Abdominal Exam: Soft, Tenderness (mild, LLQ area) Assessment and Plan - Assessment and Plan (Free Text) Plan: Assessment Acute diverticulitis with microperforation in a patient with history of diverticulitis gallbladder polyp and seen on MRCP Plan Will continue Zosyn day 5; liver enzymes are somewhat elevated but trending downwards, MRCP showed gallbladder polyp which should be observed - GI following follow up results of repeat CT scan of abdomen and pelvis today will monitor clinically
[2017-05-10] MEDS: HYDROmorphone 1 mg/ml ISec IVP PRN ×5 (03:13→21:30)
[2017-05-10] MEDS: metroNIDAZOLE IV 500 mg/100 ml 500 MG/100 ML BAG IVPB SCH ×3 (05:45→21:33)
[2017-05-10] MEDS: Piperacillin/Tazobact 3.375 gm 100 ML IVPB SCH ×4 (05:46→17:52)
[2017-05-10 07:24] LABS: BASO # 0.03 K/mm3 (0.0-2.0); BASO % 0.3 % (0.0-3.0); EOS # 0.2 (0.0-0.7); EOS % 1.6 % (1.5-5.0); GRAN # 9.26 (1.4-6.5); GRAN % 78.6 % (50.0-68.0); HEMATOCRIT 38.2 % (42.0-52.0); LYMPH # 1.7 (1.2-3.4); LYMPH % 14.2 % (22.0-35.0); MEAN CELL VOLUME 82.7 fl (80.0-105.0); MEAN CORPUSCULAR HGB CONC 35.1 g/dl (31.0-37.0); MEAN PLATELET VOLUME 8.5 fl (7.0-11.0); MONO # 0.6 (0.1-0.6); MONO % 5.3 % (1.0-6.0); RED CELL DISTRIBUTION WIDTH 12.9 % (11.5-14.5); WHITE BLOOD COUNT 11.8 10^3/ul (4.5-11.0)
[2017-05-10 07:37] LABS: ALB/GLOB RATIO 1.2 (1.1-1.8); ALKALINE PHOSPHATASE 113 U/L (38-126); ALT/SGPT 117 U/L (7-56); AST/SGOT 44 U/L (17-59); BILIRUBIN,DIRECT 0.5 mg/dL (0.0-0.4); BILIRUBIN,TOTAL 0.8 mg/dL (0.2-1.3); BLOOD UREA NITROGEN 7 mg/dL (7-21); CALCIUM 8.9 mg/dL (8.4-10.5); CARBON DIOXIDE 24 mmol/L (21-33); CHLORIDE 103 mmol/L (98-107); GFR AFRICAN-AMERICAN > 60; GLUCOSE,RANDOM 80 mg/dL (70-110); POTASSIUM 3.7 mmol/L (3.6-5.0); SODIUM 142 mmol/L (132-148); TOTAL PROTEIN 7.3 g/dL (5.8-8.3)
[2017-05-10] MEDS ORDERED: Midazolam 2 MG/2 ML VIAL ONE (08:21)
[2017-05-10] MEDS ORDERED: HYDROmorphone 1 mg/ml ISec ONE (09:27)
[2017-05-10] MEDS ORDERED: HYDROmorphone 1 mg/ml ISec IVP ONE (10:12)
[2017-05-10] MEDS: Sodium Chloride 0.45% 1,000 ML IV SCH ×2 (10:14→21:34)
--- NOTE | 2017-05-10 12:07 | CP.PCM.PN ---
<Jacey May - Last Filed: 05/10/17 12:07> Subjective - Date & Time of Evaluation Date of Evaluation: 05/10/17 Time of Evaluation: 10:45 - Subjective Subjective: Seen and examined by me at this morning, just returned from interventional radiology for CT-guided abscess drain. The patient denies nausea, vomiting, fever or chills. No acute distress. Reports abdominal discomfort to [facility], s/p drain. at bedside. Objective - Vital Signs/Intake and Output Vital Signs (last 24 hours): Temp Pulse Resp BP Pulse Ox 98.5 F 53 L 20 167/98 H 100 05/10/17 09:49 05/10/17 09:49 05/10/17 09:49 05/10/17 09:49 05/10/17 09:49 Intake and Output: 05/10/17 05/10/17 06:59 18:59 Intake Total 1800 125 Output Total 350 Balance 1450 125 - Medications Medications: Current Medications Acetaminophen (Tylenol 325mg Tab) 650 mg PO Q4 PRN PRN Reason: Fever >100.4 F Heparin Sodium (Porcine) (Heparin) 5,000 units SC Q12 [place] PRN Reason: Protocol Last Admin: 05/10/17 10:25 Dose: Not Given Piperacillin Sod/Tazobactam Sod (Zosyn 3.375 In Ns 100ml) 100 mls @ 200 mls/hr IVPB Q6 [place] PRN Reason: Protocol Stop: 05/19/17 19:44 Last Admin: 05/10/17 05:46 Dose: 200 mls/hr Sodium Chloride (Sodium Chloride 0.9%) 1,000 mls @ 75 mls/hr IV .[id number] [facility] Last Admin: 05/09/17 22:10 Dose: 75 mls/hr Metronidazole (Flagyl) 500 mg in 100 mls @ 100 mls/hr IVPB Q8 [place] PRN Reason: Protocol Last Admin: 05/10/17 05:45 Dose: 100 mls/hr Sodium Chloride (Sodium Chloride 0.45%) 1,000 mls @ 80 mls/hr IV .[id number] [facility] Stop: 05/11/17 08:00 Last Admin: 05/10/17 10:14 Dose: Not Given Ketorolac Tromethamine (Toradol) 15 mg IVP Q6H PRN PRN Reason: Pain, moderate (4-7) Last Admin: 05/07/17 06:48 Dose: 15 mg Mupirocin (Bactroban Ointment) 0 gm TOP BID [facility] Last Admin: 05/10/17 10:22 Dose: 1 appl Ondansetron HCl (Zofran Inj) 4 mg IVP Q6H PRN PRN Reason: Nausea/Vomiting Pantoprazole Sodium (Protonix Inj) 40 mg IVP DAILY [facility] Last Admin: 05/10/17 10:10 Dose: 40 mg Tramadol HCl (Ultram) 50 mg PO Q6H PRN PRN Reason: Pain, moderate (4-7) Last Admin: 05/07/17 14:50 Dose: 50 mg - Labs Labs: 05/10/17 07:21 05/10/17 07:21 APTT 33.1 Seconds (23.7-30.8) H 05/09/17 18:48 - Constitutional Appears: No Acute Distress - Head Exam Head Exam: NORMOCEPHALIC - Eye Exam Eye Exam: Normal appearance. absent: Scleral icterus - ENT Exam ENT Exam: Mucous Membranes Moist - Neck Exam Neck Exam: Normal Inspection - Respiratory Exam Respiratory Exam: NORMAL BREATHING PATTERN. absent: Respiratory Distress - Cardiovascular Exam Cardiovascular Exam: +S1, +S2 - GI/Abdominal Exam GI & Abdominal Exam: Soft, Tenderness, Normal Bowel Sounds. absent: Guarding, Rebound Additional comments: LLQ drain with bloody drainage, dressing D/I - Neurological Exam Neurological Exam: Alert, Awake, Oriented x3 Assessment and Plan - Assessment and Plan (Free Text) Assessment: Assessment: Acute diverticulitis with microperforation, s/p repeat ct scan:The CT scan showed a possible abscess collection and a thickening of the distal ileum segment close to the inflammatory area, S/p ct gguided drain of abscess with drain. GB:choleterol polyposis, s/p abdominal US and MRCP, no acute findings GERD Elevated liver enzymes, improving History of esophageal ulcer History of Trejo's esophagus History of colon polyps Plan: Nothing by mouth, continue IV fluids continue Protonix 40 mg IVP Continue IV antibiotics as per ID, on Zosyn On Flagyl trend LFT DVT prophylaxsis Surgical follow-up Seen and discussed with Dr. Rivera. <Miguel,Kovil V - Last Filed: 05/10/17 20:19> Objective - Vital Signs/Intake and Output Vital Signs (last 24 hours): Temp Pulse Resp BP Pulse Ox 98.7 F 70 20 138/89 99 05/10/17 16:00 05/10/17 16:00 05/10/17 16:00 05/10/17 16:00 05/10/17 16:00 Intake and Output: 05/10/17 05/11/17 18:59 06:59 Intake Total 125 Output Total 800 Balance -675 - Medications Medications: Current Medications Acetaminophen (Tylenol 325mg Tab) 650 mg PO Q4 PRN PRN Reason: Fever >100.4 F Heparin Sodium (Porcine) (Heparin) 5,000 units SC Q12 [place] PRN Reason: Protocol Last Admin: 05/10/17 10:25 Dose: Not Given Hydromorphone HCl (Dilaudid) 1 mg IVP Q4H PRN PRN Reason: Pain, severe (8-10) Last Admin: 05/10/17 17:52 Dose: 1 mg Piperacillin Sod/Tazobactam Sod (Zosyn 3.375 In Ns 100ml) 100 mls @ 200 mls/hr IVPB Q6 [place] PRN Reason: Protocol Stop: 05/19/17 19:44 Last Admin: 05/10/17 17:52 Dose: 200 mls/hr Metronidazole (Flagyl) 500 mg in 100 mls @ 100 mls/hr IVPB Q8 [place] PRN Reason: Protocol Last Admin: 05/10/17 15:22 Dose: 100 mls/hr Sodium Chloride (Sodium Chloride 0.45%) 1,000 mls @ 80 mls/hr IV .[id number] [facility] Stop: 05/11/17 08:00 Last Admin: 05/10/17 10:14 Dose: Not Given Ciprofloxacin (Cipro 200mg/100ml D5w) 100 mls @ 67 mls/hr IVPB Q12 [place] PRN Reason: Protocol Stop: 05/10/17 23:30 Ketorolac Tromethamine (Toradol) 15 mg IVP Q6H PRN PRN Reason: Pain, moderate (4-7) Last Admin: 05/07/17 06:48 Dose: 15 mg Mupirocin (Bactroban Ointment) 0 gm TOP BID [facility] Last Admin: 05/10/17 17:58 Dose: Not Given Ondansetron HCl (Zofran Inj) 4 mg IVP Q6H PRN PRN Reason: Nausea/Vomiting Pantoprazole Sodium (Protonix Inj) 40 mg IVP DAILY [facility] Last Admin: 05/10/17 10:10 Dose: 40 mg Tramadol HCl (Ultram) 50 mg PO Q6H PRN PRN Reason: Pain, moderate (4-7) Last Admin: 05/07/17 14:50 Dose: 50 mg - Labs Labs: 05/10/17 07:21 05/10/17 07:21 APTT 33.1 Seconds (23.7-30.8) H 05/09/17 18:48 Attending/Attestation - Attestation I have personally seen and examined this patient.: Yes I have fully participated in the care of the patient.: Yes I have reviewed all pertinent clinical information, including history, physical exam and plan: Yes Notes (Text): This is an addendum to GI progress report dictated by Jacey May APN.The patient was seen and examined earlier. Medical records, lab studies, imagings were reviewed. Last 24 hours events reviewed. Agreed with the above treatment plan as outlined in Jacey May APN's notes the with the addition of the following Status post CT-guided drainage of the abscess. Patient has drain in situ Abdomen soft mild tenderness left lower quadrant area LFTs shows downward trend On clear liquid diet Continue antibiotics Will slowly advance the diet Elective colonoscopy before surgery as an outpatient 05/10/17 20:18
--- NOTE | 2017-05-10 12:50 | CP.PCM.PN ---
<Sami Mcqueena - Last Filed: 05/10/17 12:48> Subjective - Date & Time of Evaluation Date of Evaluation: 05/10/17 Time of Evaluation: 11:00 - Subjective Subjective: PGY-[address] Abrams Patient seen and examined at bedside. No acute distress. This morning patient went for CT guided drainage. He is have abd pain but pain medication is helping. Patient is currently NPO. Objective - Vital Signs/Intake and Output Vital Signs (last 24 hours): Temp Pulse Resp BP Pulse Ox 98.5 F 53 L 20 167/98 H 100 05/10/17 09:49 05/10/17 09:49 05/10/17 09:49 05/10/17 09:49 05/10/17 09:49 Intake and Output: 05/10/17 05/10/17 06:59 18:59 Intake Total 1800 125 Output Total 350 Balance 1450 125 - Medications Medications: Current Medications Acetaminophen (Tylenol 325mg Tab) 650 mg PO Q4 PRN PRN Reason: Fever >100.4 F Heparin Sodium (Porcine) (Heparin) 5,000 units SC Q12 [place]OCK PRN Reason: Protocol Last Admin: 05/10/17 10:25 Dose: Not Given Piperacillin Sod/Tazobactam Sod (Zosyn 3.375 In Ns 100ml) 100 mls @ 200 mls/hr IVPB Q6 [place] PRN Reason: Protocol Stop: 05/19/17 19:44 Last Admin: 05/10/17 12:40 Dose: 200 mls/hr Sodium Chloride (Sodium Chloride 0.9%) 1,000 mls @ 75 mls/hr IV .[id number] [facility] Last Admin: 05/09/17 22:10 Dose: 75 mls/hr Metronidazole (Flagyl) 500 mg in 100 mls @ 100 mls/hr IVPB Q8 [place] PRN Reason: Protocol Last Admin: 05/10/17 05:45 Dose: 100 mls/hr Sodium Chloride (Sodium Chloride 0.45%) 1,000 mls @ 80 mls/hr IV .[id number] [facility] Stop: 05/11/17 08:00 Last Admin: 05/10/17 10:14 Dose: Not Given Ketorolac Tromethamine (Toradol) 15 mg IVP Q6H PRN PRN Reason: Pain, moderate (4-7) Last Admin: 05/07/17 06:48 Dose: 15 mg Mupirocin (Bactroban Ointment) 0 gm TOP BID [facility] Last Admin: 05/10/17 10:22 Dose: 1 appl Ondansetron HCl (Zofran Inj) 4 mg IVP Q6H PRN PRN Reason: Nausea/Vomiting Pantoprazole Sodium (Protonix Inj) 40 mg IVP DAILY [facility] Last Admin: 05/10/17 10:10 Dose: 40 mg Tramadol HCl (Ultram) 50 mg PO Q6H PRN PRN Reason: Pain, moderate (4-7) Last Admin: 05/07/17 14:50 Dose: 50 mg - Labs Labs: 05/10/17 07:21 05/10/17 07:21 APTT 33.1 Seconds (23.7-30.8) H 05/09/17 18:48 - Constitutional Appears: No Acute Distress - Head Exam Head Exam: ATRAUMATIC, NORMAL INSPECTION, NORMOCEPHALIC - Eye Exam Eye Exam: EOMI, Normal appearance - ENT Exam ENT Exam: Mucous Membranes Moist - Respiratory Exam Respiratory Exam: Decreased Breath Sounds, Clear to Ausculation Bilateral, NORMAL BREATHING PATTERN. absent: Rales, Rhonchi, Wheezes, Respiratory Distress , Stridor - Cardiovascular Exam Cardiovascular Exam: REGULAR RHYTHM, +S1, +S2. absent: Tachycardia, Murmur - GI/Abdominal Exam GI & Abdominal Exam: Tenderness, Normal Bowel Sounds. absent: Distended, Firm Additional comments: drain in place - Extremities Exam Extremities Exam: Normal Inspection - Neurological Exam Neurological Exam: Alert, Awake, Oriented x3 - Skin Skin Exam: Dry, Intact, Normal Color, Warm Assessment and Plan - Assessment and Plan (Free Text) Assessment: 37 yo male with PMH of diverticulitis presented with acute sigmoid diverticulitis and elevated LFTs. Over weekend patient had new leukocytosis. CT abd showed Acute sigmoid diverticulitis with pericolonic abscess measuring 4.4 cm Plan: 1. sigmoid diverticulitis with abscess - patient went for CT guided drainage this morning. Per IR drain will be removed outpatient and patient will need repeat CT outpatient - CT abd with PO and IV contrast reviewed, showed Acute sigmoid diverticulitis with pericolonic abscess measuring 4.4 cm. - MRCP showed gallbladder polyp, no cholelithiasis/cholecystitis, mild hepatic steatosis - cont zosyn - tramadol for pain - NPO, cont IVF at 75cc/hr - blood cultures negative - GI, ID and surgery following 2. elevated LFTs - probably due to medication vs ETOH - all labs reviewed, LFTs cont to downtrend - viral hepatitis panel negative GI/DVT ppx <Gurpreet Abrams S - Last Filed: 05/10/17 18:11> Objective - Vital Signs/Intake and Output Vital Signs (last 24 hours): Temp Pulse Resp BP Pulse Ox 98.7 F 70 20 138/89 99 05/10/17 16:00 05/10/17 16:00 05/10/17 16:00 05/10/17 16:00 05/10/17 16:00 Intake and Output: 05/10/17 05/10/17 06:59 18:59 Intake Total 1800 125 Output Total 350 700 Balance 1450 -575 - Medications Medications: Current Medications Acetaminophen (Tylenol 325mg Tab) 650 mg PO Q4 PRN PRN Reason: Fever >100.4 F Heparin Sodium (Porcine) (Heparin) 5,000 units SC Q12 [place]OCK PRN Reason: Protocol Last Admin: 05/10/17 10:25 Dose: Not Given Hydromorphone HCl (Dilaudid) 1 mg IVP Q4H PRN PRN Reason: Pain, severe (8-10) Last Admin: 05/10/17 17:52 Dose: 1 mg Piperacillin Sod/Tazobactam Sod (Zosyn 3.375 In Ns 100ml) 100 mls @ 200 mls/hr IVPB Q6 [place] PRN Reason: Protocol Stop: 05/19/17 19:44 Last Admin: 05/10/17 17:52 Dose: 200 mls/hr Metronidazole (Flagyl) 500 mg in 100 mls @ 100 mls/hr IVPB Q8 [place] PRN Reason: Protocol Last Admin: 05/10/17 15:22 Dose: 100 mls/hr Sodium Chloride (Sodium Chloride 0.45%) 1,000 mls @ 80 mls/hr IV .[id number] [facility] Stop: 05/11/17 08:00 Last Admin: 05/10/17 10:14 Dose: Not Given Ciprofloxacin (Cipro 200mg/100ml D5w) 100 mls @ 67 mls/hr IVPB Q12 [place] PRN Reason: Protocol Stop: 05/10/17 23:30 Ketorolac Tromethamine (Toradol) 15 mg IVP Q6H PRN PRN Reason: Pain, moderate (4-7) Last Admin: 05/07/17 06:48 Dose: 15 mg Mupirocin (Bactroban Ointment) 0 gm TOP BID [facility] Last Admin: 05/10/17 17:58 Dose: Not Given Ondansetron HCl (Zofran Inj) 4 mg IVP Q6H PRN PRN Reason: Nausea/Vomiting Pantoprazole Sodium (Protonix Inj) 40 mg IVP DAILY [facility] Last Admin: 05/10/17 10:10 Dose: 40 mg Tramadol HCl (Ultram) 50 mg PO Q6H PRN PRN Reason: Pain, moderate (4-7) Last Admin: 05/07/17 14:50 Dose: 50 mg - Labs Labs: 05/10/17 07:21 05/10/17 07:21 APTT 33.1 Seconds (23.7-30.8) H 05/09/17 18:48 Assessment and Plan - Assessment and Plan (Free Text) Plan: Pt seen and examined. Above note of resident reviewed and agree with above note. Meds and labs reviewed. Spoke to Dr Aamir Judge after drainage. Will need repeat CT as outpt. Pain controlled with meds. On Zosyn.
--- NOTE | 2017-05-10 12:59 | CP.PCM.PN ---
Subjective - Date & Time of Evaluation Date of Evaluation: 05/10/17 Time of Evaluation: 11:15 - Subjective Subjective: Patient is resting comfortably in bed, not in distress, no fevers. Had IR- guided drainage of abscess yesterday. Objective - Vital Signs/Intake and Output Vital Signs (last 24 hours): Temp Pulse Resp BP Pulse Ox 98.0 F 59 L 20 131/78 99 05/10/17 08:30 05/10/17 08:30 05/10/17 08:30 05/10/17 08:30 05/10/17 08:30 Intake and Output: 05/10/17 05/10/17 06:59 18:59 Intake Total 1800 Output Total 350 Balance 1450 - Medications Medications: Current Medications Acetaminophen (Tylenol 325mg Tab) 650 mg PO Q4 PRN PRN Reason: Fever >100.4 F Heparin Sodium (Porcine) (Heparin) 5,000 units SC Q12 [place] PRN Reason: Protocol Last Admin: 05/09/17 22:10 Dose: Not Given Hydromorphone HCl (Dilaudid) 1 mg IVP Q4H PRN PRN Reason: Pain, severe (8-10) Last Admin: 05/10/17 09:30 Dose: 1 mg Piperacillin Sod/Tazobactam Sod (Zosyn 3.375 In Ns 100ml) 100 mls @ 200 mls/hr IVPB Q6 [place] PRN Reason: Protocol Stop: 05/19/17 19:44 Last Admin: 05/10/17 05:46 Dose: 200 mls/hr Sodium Chloride (Sodium Chloride 0.9%) 1,000 mls @ 75 mls/hr IV .[id number] [facility] Last Admin: 05/09/17 22:10 Dose: 75 mls/hr Metronidazole (Flagyl) 500 mg in 100 mls @ 100 mls/hr IVPB Q8 [place] PRN Reason: Protocol Last Admin: 05/10/17 05:45 Dose: 100 mls/hr Sodium Chloride (Sodium Chloride 0.45%) 1,000 mls @ 80 mls/hr IV .[id number] [facility] Stop: 05/11/17 08:00 Ketorolac Tromethamine (Toradol) 15 mg IVP Q6H PRN PRN Reason: Pain, moderate (4-7) Last Admin: 05/07/17 06:48 Dose: 15 mg Mupirocin (Bactroban Ointment) 0 gm TOP BID [facility] Last Admin: 05/09/17 22:10 Dose: Not Given Ondansetron HCl (Zofran Inj) 4 mg IVP Q6H PRN PRN Reason: Nausea/Vomiting Pantoprazole Sodium (Protonix Inj) 40 mg IVP DAILY [facility] Last Admin: 05/09/17 09:55 Dose: 40 mg Tramadol HCl (Ultram) 50 mg PO Q6H PRN PRN Reason: Pain, moderate (4-7) Last Admin: 05/07/17 14:50 Dose: 50 mg - Labs Labs: 05/10/17 07:21 05/10/17 07:21 APTT 33.1 Seconds (23.7-30.8) H 05/09/17 18:48 - Constitutional Appears: Non-toxic - Head Exam Head Exam: NORMAL INSPECTION - Neck Exam Neck Exam: absent: Meningismus - Respiratory Exam Respiratory Exam: Decreased Breath Sounds - Cardiovascular Exam Cardiovascular Exam: +S1, +S2 - GI/Abdominal Exam GI & Abdominal Exam: Soft. absent: Tenderness Assessment and Plan - Assessment and Plan (Free Text) Plan: Assessment Acute diverticulitis with microperforation and abscess formation S/P IR-guided drainage today in a patient with history of diverticulitis gallbladder polyp and seen on MRCP Plan Will continue Zosyn day 6; liver enzymes are somewhat elevated but trending downwards, MRCP showed gallbladder polyp which should be observed - GI following follow up cultures of the intra-abdominal abscess will continue to monitor clinically
--- NOTE | 2017-05-10 15:09 | CP.PCM.PN ---
Subjective - Date & Time of Evaluation Date of Evaluation: 05/10/17 Time of Evaluation: 15:06 - Subjective Subjective: Surgery Pt s&e. NAEON. Denies F/C/N/V/D/CP/SOB. Pain controlled. Pt had IR abscess drainage today. aspirated 30cc. Objective - Vital Signs/Intake and Output Vital Signs (last 24 hours): Temp Pulse Resp BP Pulse Ox 98.5 F 53 L 20 167/98 H 100 05/10/17 09:49 05/10/17 09:49 05/10/17 09:49 05/10/17 09:49 05/10/17 09:49 Intake and Output: 05/10/17 05/10/17 06:59 18:59 Intake Total 1800 125 Output Total 350 700 Balance 1450 -575 - Medications Medications: Current Medications Acetaminophen (Tylenol 325mg Tab) 650 mg PO Q4 PRN PRN Reason: Fever >100.4 F Heparin Sodium (Porcine) (Heparin) 5,000 units SC Q12 [facility] PRN Reason: Protocol Last Admin: 05/10/17 10:25 Dose: Not Given Hydromorphone HCl (Dilaudid) 1 mg IVP Q4H PRN PRN Reason: Pain, severe (8-10) Last Admin: 05/10/17 13:50 Dose: 1 mg Piperacillin Sod/Tazobactam Sod (Zosyn 3.375 In Ns 100ml) 100 mls @ 200 mls/hr IVPB Q6 [facility] PRN Reason: Protocol Stop: 05/19/17 19:44 Last Admin: 05/10/17 12:40 Dose: 200 mls/hr Metronidazole (Flagyl) 500 mg in 100 mls @ 100 mls/hr IVPB Q8 [facility] PRN Reason: Protocol Last Admin: 05/10/17 05:45 Dose: 100 mls/hr Sodium Chloride (Sodium Chloride 0.45%) 1,000 mls @ 80 mls/hr IV .[id number] [facility] Stop: 05/11/17 08:00 Last Admin: 05/10/17 10:14 Dose: Not Given Ciprofloxacin (Cipro 200mg/100ml D5w) 100 mls @ 67 mls/hr IVPB Q12 [facility] PRN Reason: Protocol Stop: 05/10/17 23:30 Ketorolac Tromethamine (Toradol) 15 mg IVP Q6H PRN PRN Reason: Pain, moderate (4-7) Last Admin: 05/07/17 06:48 Dose: 15 mg Mupirocin (Bactroban Ointment) 0 gm TOP BID [facility] Last Admin: 05/10/17 10:22 Dose: 1 appl Ondansetron HCl (Zofran Inj) 4 mg IVP Q6H PRN PRN Reason: Nausea/Vomiting Pantoprazole Sodium (Protonix Inj) 40 mg IVP DAILY [facility] Last Admin: 05/10/17 10:10 Dose: 40 mg Tramadol HCl (Ultram) 50 mg PO Q6H PRN PRN Reason: Pain, moderate (4-7) Last Admin: 05/07/17 14:50 Dose: 50 mg - Labs Labs: 05/10/17 07:21 05/10/17 07:21 APTT 33.1 Seconds (23.7-30.8) H 05/09/17 18:48 - Constitutional Appears: No Acute Distress - Head Exam Head Exam: ATRAUMATIC, NORMAL INSPECTION, NORMOCEPHALIC - Eye Exam Eye Exam: EOMI, Normal appearance, PERRL Pupil Exam: NORMAL ACCOMODATION, PERRL - ENT Exam ENT Exam: Mucous Membranes Moist, Normal Exam - Neck Exam Neck Exam: Full ROM, Normal Inspection. absent: Lymphadenopathy - Respiratory Exam Respiratory Exam: Clear to Ausculation Bilateral, NORMAL BREATHING PATTERN - Cardiovascular Exam Cardiovascular Exam: REGULAR RHYTHM, +S1, +S2. absent: Murmur - GI/Abdominal Exam GI & Abdominal Exam: Soft, Tenderness, Normal Bowel Sounds. absent: Distended, Firm, Guarding, Rigid - Extremities Exam Extremities Exam: Full ROM, Normal Capillary Refill, Normal Inspection. absent : Joint Swelling, Pedal Edema - Back Exam Back Exam: NORMAL INSPECTION - Neurological Exam Neurological Exam: Alert, Awake, CN II-XII Intact, Normal Gait, Oriented x3 - Psychiatric Exam Psychiatric exam: Normal Affect, Normal Mood - Skin Skin Exam: Dry, Intact, Normal Color, Warm Assessment and Plan - Assessment and Plan (Free Text) Assessment: 37 M with diverticulitis with abscess POD 0 sp IR abscess drainage -CLD - pain control - Monitor WBC - IV antibiotics as per ID - f/u GI recommendations - No surgical intervention at this time - LIEN Reina
[2017-05-10] MEDS: Sodium Chloride 0.9% 1,000 ML IV SCH (15:24)
--- NOTE | 2017-05-10 17:49 | CT ---
PROCEDURE: CT-guided pelvic abscess drainage HISTORY: Recurrent diverticulitis with pelvic abscess. Needs drainage PHYSICIAN(S): Aamir Judge MD. TECHNIQUE: The relative risks and indications for the procedure were explained to the patient and informed consent obtained. The patient was placed in a supine position on the CT scanner and preliminary images through the Darrel performed. This revealed a 2.8 x 5.2 cm fluid and air collection in the pelvis superior to the sigmoid colon. A left anterior oblique approach was selected and the area prepped/draped in the usual sterile fashion. Conscious sedation and monitoring were provided throughout the procedure by nurse. An 18-gauge needle was advanced into the collection and 10 cc of purulent fluid aspirated. A specimen was sent to microbiology. A 0.035 J-wire was coiled within the fluid collection. Sequential dilatation was performed with subsequent placement of a 12 Pashto pigtail drain. Approximately 30 cc of purulent fluid was aspirated. The cavity was lavaged with normal saline. The drain was sutured to the skin and placed to gravity drainage. Completion images were performed. The patient tolerated the procedure well. IMPRESSION: 1. CT-guided pelvic abscess drainage as described above.
[2017-05-10] MEDS ORDERED: Ciprofloxacin 200mg/100ml D5W 100 ML IVPB SCH (22:00)
[2017-05-11] MEDS: Piperacillin/Tazobact 3.375 gm 100 ML IVPB SCH ×4 (00:47→19:00)
[2017-05-11] MEDS: HYDROmorphone 1 mg/ml ISec IVP PRN ×5 (01:00→22:25)
[2017-05-11] MEDS: metroNIDAZOLE IV 500 mg/100 ml 500 MG/100 ML BAG IVPB SCH ×3 (05:35→21:42)
[2017-05-11 07:24] LABS: BASO # 0.02 K/mm3 (0.0-2.0); BASO % 0.1 % (0.0-3.0); EOS # 0.2 (0.0-0.7); EOS % 1.4 % (1.5-5.0); GRAN # 10.96 (1.4-6.5); GRAN % 81.2 % (50.0-68.0); HEMATOCRIT 39.3 % (42.0-52.0); LYMPH # 1.4 (1.2-3.4); LYMPH % 10.1 % (22.0-35.0); MEAN CELL VOLUME 82.6 fl (80.0-105.0); MEAN CORPUSCULAR HEMOGLOBIN 28.6 pg (25.0-35.0); MEAN CORPUSCULAR HGB CONC 34.6 g/dl (31.0-37.0); MEAN PLATELET VOLUME 8.5 fl (7.0-11.0); MONO % 7.2 % (1.0-6.0); RED CELL DISTRIBUTION WIDTH 12.8 % (11.5-14.5); WHITE BLOOD COUNT 13.5 10^3/ul (4.5-11.0)
[2017-05-11 08:07] LABS: ALB/GLOB RATIO 1.2 (1.1-1.8); ALKALINE PHOSPHATASE 108 U/L (38-126); ALT/SGPT 98 U/L (7-56); AST/SGOT 37 U/L (17-59); BILIRUBIN,TOTAL 0.9 mg/dL (0.2-1.3); BLOOD UREA NITROGEN 5 mg/dL (7-21); CALCIUM 8.7 mg/dL (8.4-10.5); CARBON DIOXIDE 24 mmol/L (21-33); CHLORIDE 100 mmol/L (95-110); GFR AFRICAN-AMERICAN > 60; GLUCOSE,RANDOM 90 mg/dL (70-110); POTASSIUM 3.6 mmol/L (3.6-5.0); SODIUM 138 mmol/L (132-148); TOTAL PROTEIN 7.1 g/dL (5.8-8.3)
--- NOTE | 2017-05-11 09:34 | CP.PCM.PN ---
Subjective - Date & Time of Evaluation Date of Evaluation: 05/11/17 Time of Evaluation: 09:31 - Subjective Subjective: Surgery Pt s&e. Pain controlled. Denies F/C/N/V/D/CP/SOB. Reports flatus. + amb. Drain in place. Objective - Vital Signs/Intake and Output Vital Signs (last 24 hours): Temp Pulse Resp BP Pulse Ox 98.3 F 68 20 121/81 97 05/11/17 08:29 05/11/17 08:29 05/11/17 08:29 05/11/17 08:29 05/11/17 08:29 Intake and Output: 05/11/17 05/11/17 06:59 18:59 Intake Total 2240 240 Output Total 100 900 Balance 2140 -660 - Medications Medications: Current Medications Acetaminophen (Tylenol 325mg Tab) 650 mg PO Q4 PRN PRN Reason: Fever >100.4 F Heparin Sodium (Porcine) (Heparin) 5,000 units SC Q12 [facility] PRN Reason: Protocol Last Admin: 05/10/17 21:34 Dose: Not Given Hydromorphone HCl (Dilaudid) 1 mg IVP Q4H PRN PRN Reason: Pain, severe (8-10) Last Admin: 05/11/17 05:39 Dose: 1 mg Piperacillin Sod/Tazobactam Sod (Zosyn 3.375 In Ns 100ml) 100 mls @ 200 mls/hr IVPB Q6 [facility] PRN Reason: Protocol Stop: 05/19/17 19:44 Last Admin: 05/11/17 05:35 Dose: 200 mls/hr Metronidazole (Flagyl) 500 mg in 100 mls @ 100 mls/hr IVPB Q8 [facility] PRN Reason: Protocol Last Admin: 05/11/17 05:35 Dose: 100 mls/hr Ketorolac Tromethamine (Toradol) 15 mg IVP Q6H PRN PRN Reason: Pain, moderate (4-7) Last Admin: 05/07/17 06:48 Dose: 15 mg Mupirocin (Bactroban Ointment) 0 gm TOP BID [facility] Last Admin: 05/10/17 17:58 Dose: Not Given Ondansetron HCl (Zofran Inj) 4 mg IVP Q6H PRN PRN Reason: Nausea/Vomiting Pantoprazole Sodium (Protonix Inj) 40 mg IVP DAILY [facility] Last Admin: 05/10/17 10:10 Dose: 40 mg Tramadol HCl (Ultram) 50 mg PO Q6H PRN PRN Reason: Pain, moderate (4-7) Last Admin: 05/07/17 14:50 Dose: 50 mg - Labs Labs: 05/11/17 07:00 05/11/17 07:00 APTT 33.1 Seconds (23.7-30.8) H 05/09/17 18:48 - Constitutional Appears: No Acute Distress - Head Exam Head Exam: ATRAUMATIC, NORMAL INSPECTION, NORMOCEPHALIC - Eye Exam Eye Exam: EOMI, Normal appearance, PERRL Pupil Exam: NORMAL ACCOMODATION, PERRL - ENT Exam ENT Exam: Mucous Membranes Moist, Normal Exam - Neck Exam Neck Exam: Full ROM, Normal Inspection. absent: Lymphadenopathy - Respiratory Exam Respiratory Exam: Clear to Ausculation Bilateral, NORMAL BREATHING PATTERN - Cardiovascular Exam Cardiovascular Exam: REGULAR RHYTHM, +S1, +S2. absent: Murmur - GI/Abdominal Exam GI & Abdominal Exam: Soft, Tenderness, Normal Bowel Sounds. absent: Distended, Firm, Guarding, Rigid Additional comments: Low abd TTP. Drain in place: sanguinous out put. - Extremities Exam Extremities Exam: Full ROM, Normal Capillary Refill, Normal Inspection. absent : Joint Swelling, Pedal Edema - Back Exam Back Exam: NORMAL INSPECTION - Neurological Exam Neurological Exam: Alert, Awake, CN II-XII Intact, Normal Gait, Oriented x3 - Psychiatric Exam Psychiatric exam: Normal Affect, Normal Mood - Skin Skin Exam: Dry, Intact, Normal Color, Warm Assessment and Plan - Assessment and Plan (Free Text) Assessment: 37 M with diverticulitis with abscess POD 1 sp IR abscess drainage : 200cc Leukocytosis -CLD - pain control - Monitor WBC - IV antibiotics as per ID - f/u GI recommendations - No surgical intervention at this time - Will LIEN Reina
--- NOTE | 2017-05-11 12:27 | CP.PCM.PN ---
<CharisseJanet - Last Filed: 05/11/17 13:21> Subjective - Date & Time of Evaluation Date of Evaluation: 05/11/17 Time of Evaluation: 12:25 - Subjective Subjective: PGY-[address] Abrams Patient seen and examined at bedside. No acute distress. Patient states pain from diverticulitis has improved but had discomfort from drain. He denies chest pain, sob, n/v/d/c. Patient states that he tolerated liquid diet last night. He is ambulating well. Objective - Vital Signs/Intake and Output Vital Signs (last 24 hours): Temp Pulse Resp BP Pulse Ox 98.3 F 68 20 121/81 97 05/11/17 08:29 05/11/17 08:29 05/11/17 08:29 05/11/17 08:29 05/11/17 08:29 Intake and Output: 05/11/17 05/11/17 06:59 18:59 Intake Total 2240 240 Output Total 100 900 Balance 2140 -660 - Medications Medications: Current Medications Acetaminophen (Tylenol 325mg Tab) 650 mg PO Q4 PRN PRN Reason: Fever >100.4 F Heparin Sodium (Porcine) (Heparin) 5,000 units SC Q12 [facility] PRN Reason: Protocol Last Admin: 05/11/17 09:29 Dose: Not Given Hydromorphone HCl (Dilaudid) 1 mg IVP Q4H PRN PRN Reason: Pain, severe (8-10) Last Admin: 05/11/17 10:52 Dose: 1 mg Piperacillin Sod/Tazobactam Sod (Zosyn 3.375 In Ns 100ml) 100 mls @ 200 mls/hr IVPB Q6 [facility] PRN Reason: Protocol Stop: 05/19/17 19:44 Last Admin: 05/11/17 05:35 Dose: 200 mls/hr Metronidazole (Flagyl) 500 mg in 100 mls @ 100 mls/hr IVPB Q8 [facility] PRN Reason: Protocol Last Admin: 05/11/17 05:35 Dose: 100 mls/hr Mupirocin (Bactroban Ointment) 0 gm TOP BID [facility] Last Admin: 05/11/17 09:31 Dose: 1 appl Ondansetron HCl (Zofran Inj) 4 mg IVP Q6H PRN PRN Reason: Nausea/Vomiting Pantoprazole Sodium (Protonix Inj) 40 mg IVP DAILY [facility] Last Admin: 05/11/17 09:30 Dose: 40 mg Tramadol HCl (Ultram) 50 mg PO Q6H PRN PRN Reason: Pain, moderate (4-7) Last Admin: 05/07/17 14:50 Dose: 50 mg - Labs Labs: 05/11/17 07:00 05/11/17 07:00 APTT 33.1 Seconds (23.7-30.8) H 05/09/17 18:48 - Constitutional Appears: Well, No Acute Distress - Head Exam Head Exam: ATRAUMATIC, NORMAL INSPECTION, NORMOCEPHALIC - Eye Exam Eye Exam: EOMI, Normal appearance - ENT Exam ENT Exam: Mucous Membranes Moist - Respiratory Exam Respiratory Exam: Clear to Ausculation Bilateral, NORMAL BREATHING PATTERN. absent: Decreased Breath Sounds, Rales, Rhonchi, Wheezes, Respiratory Distress - Cardiovascular Exam Cardiovascular Exam: REGULAR RHYTHM, +S1, +S2. absent: Tachycardia, Murmur - GI/Abdominal Exam GI & Abdominal Exam: Soft, Tenderness, Normal Bowel Sounds. absent: Distended, Firm, Guarding Additional comments: drain in place with serosanguinous fluid - Extremities Exam Extremities Exam: Normal Inspection. absent: Pedal Edema - Back Exam Back Exam: NORMAL INSPECTION - Neurological Exam Neurological Exam: Alert, Awake, Normal Gait, Oriented x3 - Skin Skin Exam: Dry, Intact, Normal Color, Warm Assessment and Plan - Assessment and Plan (Free Text) Assessment: 37 yo male with PMH of diverticulitis presented with acute sigmoid diverticulitis with abscess s/p CT guided drainage, elevated LFTs. CT abd showed Acute sigmoid diverticulitis with pericolonic abscess measuring 4.4 cm Plan: 1. sigmoid diverticulitis with abscess - s/p CT guided drainage day #1. Per IR drain will be removed outpatient and patient will need repeat CT outpatient - CT abd with PO and IV contrast reviewed, showed Acute sigmoid diverticulitis with pericolonic abscess measuring 4.4 cm. - MRCP showed gallbladder polyp, no cholelithiasis/cholecystitis, mild hepatic steatosis - cont zosyn prn - tramadol and dilaudid for pain - abx metronidazole and zosyn - tolerating liquid diet - blood cultures negative - fluid cultures positive for gram neg nenka - GI, ID and surgery following 2. elevated LFTs - probably due to medication vs ETOH - all labs reviewed, LFTs cont to downtrend - viral hepatitis panel negative GI/DVT ppx <Gurpreet Abrams - Last Filed: 05/11/17 22:27> Objective - Vital Signs/Intake and Output Vital Signs (last 24 hours): Temp Pulse Resp BP Pulse Ox 98.5 F 68 20 132/85 98 05/11/17 16:00 05/11/17 16:00 05/11/17 16:00 05/11/17 16:00 05/11/17 16:00 Intake and Output: 05/11/17 05/12/17 18:59 06:59 Intake Total 240 180 Output Total 900 950 Balance -660 -770 - Medications Medications: Current Medications Acetaminophen (Tylenol 325mg Tab) 650 mg PO Q4 PRN PRN Reason: Fever >100.4 F Heparin Sodium (Porcine) (Heparin) 5,000 units SC Q12 [facility] PRN Reason: Protocol Last Admin: 05/11/17 21:43 Dose: Not Given Hydromorphone HCl (Dilaudid) 1 mg IVP Q4H PRN PRN Reason: Pain, severe (8-10) Last Admin: 05/11/17 14:53 Dose: 1 mg Piperacillin Sod/Tazobactam Sod (Zosyn 3.375 In Ns 100ml) 100 mls @ 200 mls/hr IVPB Q6 [facility] PRN Reason: Protocol Stop: 05/19/17 19:44 Last Admin: 05/11/17 19:00 Dose: 200 mls/hr Metronidazole (Flagyl) 500 mg in 100 mls @ 100 mls/hr IVPB Q8 [facility] PRN Reason: Protocol Last Admin: 05/11/17 21:42 Dose: 100 mls/hr Mupirocin (Bactroban Ointment) 0 gm TOP BID [facility] Last Admin: 05/11/17 19:06 Dose: Not Given Ondansetron HCl (Zofran Inj) 4 mg IVP Q6H PRN PRN Reason: Nausea/Vomiting Pantoprazole Sodium (Protonix Inj) 40 mg IVP DAILY [facility] Last Admin: 05/11/17 09:30 Dose: 40 mg Tramadol HCl (Ultram) 50 mg PO Q6H PRN PRN Reason: Pain, moderate (4-7) Last Admin: 05/07/17 14:50 Dose: 50 mg - Labs Labs: 05/11/17 07:00 05/11/17 07:00 APTT 33.1 Seconds (23.7-30.8) H 05/09/17 18:48 Assessment and Plan - Assessment and Plan (Free Text) Plan: Pt seen and examined. Agree with above note of resident. Meds and labs reviewed. Histotechnician notes reviewed. Pt with controlled pain. LFT's improved. Pt is able to ambulate.
--- NOTE | 2017-05-11 12:28 | CP.PCM.PN ---
<Jacey May - Last Filed: 05/11/17 12:27> Subjective - Date & Time of Evaluation Date of Evaluation: 05/11/17 Time of Evaluation: 10:05 - Subjective Subjective: Seen and examined at the bedside earlier, out of bed to chair with family at the site, reports that abdominal pain slowly improving, tolerated the clear liquid diets. No reports of any diarrhea or recent BM today. Denies fever or chills. No nausea or vomiting, shortness of breath or chest pain. He is frequently ambulating in the halls and room as per patient. He declines heparin SQ for dvt prophylaxsis. Objective - Vital Signs/Intake and Output Vital Signs (last 24 hours): Temp Pulse Resp BP Pulse Ox 98.3 F 68 20 121/81 97 05/11/17 08:29 05/11/17 08:29 05/11/17 08:29 05/11/17 08:29 05/11/17 08:29 Intake and Output: 05/11/17 05/11/17 06:59 18:59 Intake Total 2240 240 Output Total 100 900 Balance 2140 -660 - Medications Medications: Current Medications Acetaminophen (Tylenol 325mg Tab) 650 mg PO Q4 PRN PRN Reason: Fever >100.4 F Heparin Sodium (Porcine) (Heparin) 5,000 units SC Q12 [facility] PRN Reason: Protocol Last Admin: 05/11/17 09:29 Dose: Not Given Hydromorphone HCl (Dilaudid) 1 mg IVP Q4H PRN PRN Reason: Pain, severe (8-10) Last Admin: 05/11/17 10:52 Dose: 1 mg Piperacillin Sod/Tazobactam Sod (Zosyn 3.375 In Ns 100ml) 100 mls @ 200 mls/hr IVPB Q6 [facility] PRN Reason: Protocol Stop: 05/19/17 19:44 Last Admin: 05/11/17 05:35 Dose: 200 mls/hr Metronidazole (Flagyl) 500 mg in 100 mls @ 100 mls/hr IVPB Q8 [facility] PRN Reason: Protocol Last Admin: 05/11/17 05:35 Dose: 100 mls/hr Mupirocin (Bactroban Ointment) 0 gm TOP BID [facility] Last Admin: 05/11/17 09:31 Dose: 1 appl Ondansetron HCl (Zofran Inj) 4 mg IVP Q6H PRN PRN Reason: Nausea/Vomiting Pantoprazole Sodium (Protonix Inj) 40 mg IVP DAILY [facility] Last Admin: 05/11/17 09:30 Dose: 40 mg Tramadol HCl (Ultram) 50 mg PO Q6H PRN PRN Reason: Pain, moderate (4-7) Last Admin: 05/07/17 14:50 Dose: 50 mg - Labs Labs: 05/11/17 07:00 05/11/17 07:00 APTT 33.1 Seconds (23.7-30.8) H 05/09/17 18:48 - Constitutional Appears: No Acute Distress - Head Exam Head Exam: NORMOCEPHALIC - Eye Exam Eye Exam: Normal appearance. absent: Scleral icterus - ENT Exam ENT Exam: Mucous Membranes Moist - Neck Exam Neck Exam: Normal Inspection - Respiratory Exam Respiratory Exam: Clear to Ausculation Bilateral, NORMAL BREATHING PATTERN. absent: Respiratory Distress - Cardiovascular Exam Cardiovascular Exam: +S1, +S2 - GI/Abdominal Exam GI & Abdominal Exam: Soft, Tenderness (LLQ but improved,right drain with bloody drain, 200cc overnight,site dry and intact.), Normal Bowel Sounds. absent: Guarding, Organomegaly, Rebound - Extremities Exam Extremities Exam: Normal Capillary Refill. absent: Calf Tenderness, Pedal Edema - Neurological Exam Neurological Exam: Alert, Awake, Oriented x3 - Skin Skin Exam: Dry, Warm Assessment and Plan - Assessment and Plan (Free Text) Assessment: Assessment: Acute diverticulitis with microperforation, s/p repeat ct scan:The CT scan showed a possible abscess collection and a thickening of the distal ileum segment close to the inflammatory area, S/p ct guided drain of abscess with drain. GB:cholesterol polyposis, s/p abdominal US and MRCP, no acute findings GERD Elevated liver enzymes, improving History of esophageal ulcer History of Trejo's esophagus History of colon polyps Plan: clear liquids continue Protonix 40 mg IVP Continue IV antibiotics as per ID, on Zosyn On Flagyl trend LFT DVT prophylaxsis Surgical follow-up recommend elective oupt colonoscopy prior to surgery Seen and discussed with Dr. Rivera. <Madhu Rivera V - Last Filed: 05/11/17 18:46> Objective - Vital Signs/Intake and Output Vital Signs (last 24 hours): Temp Pulse Resp BP Pulse Ox 98.5 F 68 20 132/85 98 05/11/17 16:00 05/11/17 16:00 05/11/17 16:00 05/11/17 16:00 05/11/17 16:00 Intake and Output: 05/11/17 05/11/17 06:59 18:59 Intake Total 2240 240 Output Total 100 900 Balance 2140 -660 - Medications Medications: Current Medications Acetaminophen (Tylenol 325mg Tab) 650 mg PO Q4 PRN PRN Reason: Fever >100.4 F Heparin Sodium (Porcine) (Heparin) 5,000 units SC Q12 [facility] PRN Reason: Protocol Last Admin: 05/11/17 09:29 Dose: Not Given Hydromorphone HCl (Dilaudid) 1 mg IVP Q4H PRN PRN Reason: Pain, severe (8-10) Last Admin: 05/11/17 14:53 Dose: 1 mg Piperacillin Sod/Tazobactam Sod (Zosyn 3.375 In Ns 100ml) 100 mls @ 200 mls/hr IVPB Q6 [facility] PRN Reason: Protocol Stop: 05/19/17 19:44 Last Admin: 05/11/17 12:28 Dose: 200 mls/hr Metronidazole (Flagyl) 500 mg in 100 mls @ 100 mls/hr IVPB Q8 [facility] PRN Reason: Protocol Last Admin: 05/11/17 13:55 Dose: 100 mls/hr Mupirocin (Bactroban Ointment) 0 gm TOP BID [facility] Last Admin: 05/11/17 09:31 Dose: 1 appl Ondansetron HCl (Zofran Inj) 4 mg IVP Q6H PRN PRN Reason: Nausea/Vomiting Pantoprazole Sodium (Protonix Inj) 40 mg IVP DAILY [facility] Last Admin: 05/11/17 09:30 Dose: 40 mg Tramadol HCl (Ultram) 50 mg PO Q6H PRN PRN Reason: Pain, moderate (4-7) Last Admin: 05/07/17 14:50 Dose: 50 mg - Labs Labs: 05/11/17 07:00 05/11/17 07:00 APTT 33.1 Seconds (23.7-30.8) H 10/16/17 18:48 Attending/Attestation - Attestation I have personally seen and examined this patient.: Yes I have fully participated in the care of the patient.: Yes I have reviewed all pertinent clinical information, including history, physical exam and plan: Yes Notes (Text): This is an addendum to GI progress report dictated by Jacey May APN.The patient was seen and examined earlier. Medical records, lab studies, imagings were reviewed. Last 24 hours events reviewed. Agreed with the above treatment plan as outlined in Jacey May APN's notes the with the addition of the following he takes only time this On examination drain in place abdominal tenderness is significantly decreased On full liquid diet Continue the antibiotics We will discuss with the surgical team 05/11/17 18:45
--- NOTE | 2017-05-11 12:37 | CP.PCM.PN ---
Subjective - Date & Time of Evaluation Date of Evaluation: 05/11/17 Time of Evaluation: 10:55 - Subjective Subjective: Comfortable, not in distress, less pain in the abdomen, drain still has output. Objective - Vital Signs/Intake and Output Vital Signs (last 24 hours): Temp Pulse Resp BP Pulse Ox 98.3 F 68 20 121/81 97 05/11/17 08:29 05/11/17 08:29 05/11/17 08:29 05/11/17 08:29 05/11/17 08:29 Intake and Output: 05/11/17 05/11/17 06:59 18:59 Intake Total 2240 240 Output Total 100 900 Balance 2140 -660 - Medications Medications: Current Medications Acetaminophen (Tylenol 325mg Tab) 650 mg PO Q4 PRN PRN Reason: Fever >100.4 F Heparin Sodium (Porcine) (Heparin) 5,000 units SC Q12 [facility] PRN Reason: Protocol Last Admin: 05/11/17 09:29 Dose: Not Given Hydromorphone HCl (Dilaudid) 1 mg IVP Q4H PRN PRN Reason: Pain, severe (8-10) Last Admin: 05/11/17 05:39 Dose: 1 mg Piperacillin Sod/Tazobactam Sod (Zosyn 3.375 In Ns 100ml) 100 mls @ 200 mls/hr IVPB Q6 [facility] PRN Reason: Protocol Stop: 05/19/17 19:44 Last Admin: 05/11/17 05:35 Dose: 200 mls/hr Metronidazole (Flagyl) 500 mg in 100 mls @ 100 mls/hr IVPB Q8 [facility] PRN Reason: Protocol Last Admin: 05/11/17 05:35 Dose: 100 mls/hr Ketorolac Tromethamine (Toradol) 15 mg IVP Q6H PRN PRN Reason: Pain, moderate (4-7) Last Admin: 05/07/17 06:48 Dose: 15 mg Mupirocin (Bactroban Ointment) 0 gm TOP BID [facility] Last Admin: 05/11/17 09:31 Dose: 1 appl Ondansetron HCl (Zofran Inj) 4 mg IVP Q6H PRN PRN Reason: Nausea/Vomiting Pantoprazole Sodium (Protonix Inj) 40 mg IVP DAILY [facility] Last Admin: 05/11/17 09:30 Dose: 40 mg Tramadol HCl (Ultram) 50 mg PO Q6H PRN PRN Reason: Pain, moderate (4-7) Last Admin: 05/07/17 14:50 Dose: 50 mg - Labs Labs: 05/11/17 07:00 05/11/17 07:00 APTT 33.1 Seconds (23.7-30.8) H 05/09/17 18:48 - Constitutional Appears: Non-toxic, No Acute Distress - Neck Exam Neck Exam: absent: Meningismus - Respiratory Exam Respiratory Exam: Decreased Breath Sounds - Cardiovascular Exam Cardiovascular Exam: +S1, +S2 - GI/Abdominal Exam GI & Abdominal Exam: Soft. absent: Tenderness Additional comments: left lower quadrant abdominal drain in place Assessment and Plan - Assessment and Plan (Free Text) Plan: Assessment Acute diverticulitis with microperforation and abscess formation S/P IR-guided drainage POD #1 in a patient with history of diverticulitis, growing gram negative bacilli gallbladder polyp and seen on MRCP Plan Will continue Zosyn day 7 pending identification and sensitivities of the gram negative bacilli in the abscess; liver enzymes are somewhat elevated but has trended down, MRCP showed gallbladder polyp which should be observed - GI following will continue to monitor clinically
[2017-05-12] MEDS: Piperacillin/Tazobact 3.375 gm 100 ML IVPB SCH ×2 (00:23→06:14)
[2017-05-12] MEDS: metroNIDAZOLE IV 500 mg/100 ml 500 MG/100 ML BAG IVPB SCH ×3 (06:58→21:10)
--- NOTE | 2017-05-12 10:37 | CP.PCM.PN ---
Subjective - Date & Time of Evaluation Date of Evaluation: 05/12/17 Time of Evaluation: 10:33 - Subjective Subjective: General Surgery - Dr. Reina Pt S&E. DIMPLE. Pt states his pain is improved and he hopes to go home soon. No Fevers/Chills, N/V. He is tolerating liquid diet, having good bowel function , and ambulating in the halls. Drain in LLQ draining scant sanguinous fluid past 24hrs, ~20cc. total. Objective - Vital Signs/Intake and Output Vital Signs (last 24 hours): Temp Pulse Resp BP Pulse Ox 98.5 F 68 20 132/85 98 05/11/17 16:00 05/11/17 16:00 05/11/17 16:00 05/11/17 16:00 05/11/17 16:00 Intake and Output: 05/12/17 05/12/17 06:59 18:59 Intake Total 180 0 Output Total 950 900 Balance -770 -900 - Medications Medications: Current Medications Acetaminophen (Tylenol 325mg Tab) 650 mg PO Q4 PRN PRN Reason: Fever >100.4 F Heparin Sodium (Porcine) (Heparin) 5,000 units SC Q12 [facility] PRN Reason: Protocol Last Admin: 05/12/17 09:59 Dose: Not Given Hydromorphone HCl (Dilaudid) 1 mg IVP Q4H PRN PRN Reason: Pain, severe (8-10) Last Admin: 05/11/17 22:25 Dose: 1 mg Metronidazole (Flagyl) 500 mg in 100 mls @ 100 mls/hr IVPB Q8 [facility] PRN Reason: Protocol Last Admin: 05/12/17 06:58 Dose: 100 mls/hr Cefazolin Sodium (Ancef 1gm In Ns) 1 gm in 100 mls @ 100 mls/hr IVPB Q8 [facility] PRN Reason: Protocol Mupirocin (Bactroban Ointment) 0 gm TOP BID [facility] Last Admin: 05/12/17 09:59 Dose: 1 appl Ondansetron HCl (Zofran Inj) 4 mg IVP Q6H PRN PRN Reason: Nausea/Vomiting Pantoprazole Sodium (Protonix Inj) 40 mg IVP DAILY [facility] Last Admin: 05/12/17 09:58 Dose: 40 mg Tramadol HCl (Ultram) 50 mg PO Q6H PRN PRN Reason: Pain, moderate (4-7) Last Admin: 05/07/17 14:50 Dose: 50 mg - Labs Labs: 05/11/17 07:00 05/11/17 07:00 APTT 33.1 Seconds (23.7-30.8) H 05/09/17 18:48 - Constitutional Appears: No Acute Distress - Head Exam Head Exam: ATRAUMATIC, NORMAL INSPECTION, NORMOCEPHALIC - Eye Exam Eye Exam: Normal appearance - ENT Exam ENT Exam: Mucous Membranes Moist - Respiratory Exam Respiratory Exam: NORMAL BREATHING PATTERN. absent: Respiratory Distress - Cardiovascular Exam Cardiovascular Exam: REGULAR RHYTHM - GI/Abdominal Exam GI & Abdominal Exam: Soft, Tenderness (mild ttp suprapubic. Drain in llq w/ sanguinous fluid). absent: Distended, Firm, Guarding, Rigid, Rebound - Neurological Exam Neurological Exam: Alert, Oriented x3 - Psychiatric Exam Psychiatric exam: Normal Affect, Normal Mood - Skin Skin Exam: Dry, Intact Assessment and Plan - Assessment and Plan (Free Text) Assessment: 37 M with diverticulitis with abscess, POD 2 s/p IR drainage -Advance to Soft diet -Continue IV Abx as per ID -F/U WBC -Encourage OOB/Ambulation -Monitor and Record drain output -Tentative plan for DC tomorrow with Drain in place and PO Abx as per ID recc. LIEN Kelly PGY3
[2017-05-12 10:41] LABS: BASO # 0.02 K/mm3 (0.0-2.0); BASO % 0.1 % (0.0-3.0); EOS # 0.1 (0.0-0.7); EOS % 0.7 % (1.5-5.0); GRAN # 11.51 (1.4-6.5); GRAN % 78.5 % (50.0-68.0); HEMATOCRIT 42.8 % (42.0-52.0); LYMPH # 2.1 (1.2-3.4); LYMPH % 14.2 % (22.0-35.0); MEAN CELL VOLUME 83.1 fl (80.0-105.0); MEAN CORPUSCULAR HEMOGLOBIN 29.5 pg (25.0-35.0); MEAN CORPUSCULAR HGB CONC 35.5 g/dl (31.0-37.0); MEAN PLATELET VOLUME 8.3 fl (7.0-11.0); MONO % 6.5 % (1.0-6.0); RED CELL DISTRIBUTION WIDTH 12.8 % (11.5-14.5); WHITE BLOOD COUNT 14.7 10^3/ul (4.5-11.0)
--- NOTE | 2017-05-12 13:54 | CP.PCM.PN ---
<Jacey May - Last Filed: 05/12/17 13:52> Subjective - Date & Time of Evaluation Date of Evaluation: 05/12/17 Time of Evaluation: 10:20 - Subjective Subjective: Seen and examined at the bedside earlier today, the patient reported having formed bowel movement, no reports of melena or bright red blood. He still has the changes prior to the left lower quadrant with bloody drain. Abdominal pain is improving, denies nausea, vomiting, fever or chills. Diet has been advanced , tolerating oral intake, but dislikes food choices. No acute overnight events reported. Objective - Vital Signs/Intake and Output Vital Signs (last 24 hours): Temp Pulse Resp BP Pulse Ox 98.5 F 68 20 132/85 98 05/11/17 16:00 05/11/17 16:00 05/11/17 16:00 05/11/17 16:00 05/11/17 16:00 Intake and Output: 05/12/17 05/12/17 06:59 18:59 Intake Total 180 0 Output Total 950 900 Balance -770 -900 - Medications Medications: Current Medications Acetaminophen (Tylenol 325mg Tab) 650 mg PO Q4 PRN PRN Reason: Fever >100.4 F Heparin Sodium (Porcine) (Heparin) 5,000 units SC Q12 [facility] PRN Reason: Protocol Last Admin: 05/12/17 09:59 Dose: Not Given Hydromorphone HCl (Dilaudid) 1 mg IVP Q4H PRN PRN Reason: Pain, severe (8-10) Last Admin: 05/11/17 22:25 Dose: 1 mg Metronidazole (Flagyl) 500 mg in 100 mls @ 100 mls/hr IVPB Q8 [facility] PRN Reason: Protocol Last Admin: 05/12/17 06:58 Dose: 100 mls/hr Cefazolin Sodium (Ancef 1gm In Ns) 1 gm in 100 mls @ 100 mls/hr IVPB Q8 [facility] PRN Reason: Protocol Mupirocin (Bactroban Ointment) 0 gm TOP BID [facility] Last Admin: 05/12/17 09:59 Dose: 1 appl Ondansetron HCl (Zofran Inj) 4 mg IVP Q6H PRN PRN Reason: Nausea/Vomiting Pantoprazole Sodium (Protonix Inj) 40 mg IVP DAILY [facility] Last Admin: 05/12/17 09:58 Dose: 40 mg Tramadol HCl (Ultram) 50 mg PO Q6H PRN PRN Reason: Pain, moderate (4-7) Last Admin: 05/07/17 14:50 Dose: 50 mg - Labs Labs: 05/12/17 10:30 05/11/17 07:00 APTT 33.1 Seconds (23.7-30.8) H 05/09/17 18:48 - Constitutional Appears: No Acute Distress - Head Exam Head Exam: NORMOCEPHALIC - Eye Exam Eye Exam: Normal appearance. absent: Scleral icterus - ENT Exam ENT Exam: Mucous Membranes Moist - Neck Exam Neck Exam: Normal Inspection - Respiratory Exam Respiratory Exam: Clear to Ausculation Bilateral, NORMAL BREATHING PATTERN. absent: Respiratory Distress - Cardiovascular Exam Cardiovascular Exam: +S1, +S2 - GI/Abdominal Exam GI & Abdominal Exam: Soft, Tenderness (mild at drain site, no rebound or gaurding, drain insertion site in tact. ), Normal Bowel Sounds. absent: Guarding, Organomegaly, Rebound - Extremities Exam Extremities Exam: Normal Capillary Refill. absent: Calf Tenderness, Pedal Edema - Neurological Exam Neurological Exam: Alert, Awake, Oriented x3 Assessment and Plan - Assessment and Plan (Free Text) Assessment: Assessment: Acute diverticulitis with microperforation, s/p repeat ct scan:The CT scan showed a possible abscess collection and a thickening of the distal ileum segment close to the inflammatory area, S/p ct guided drain of abscess with drain. GB:cholesterol polyposis, s/p abdominal US and MRCP, no acute findings GERD Elevated liver enzymes, improving History of esophageal ulcer History of Trejo's esophagus History of colon polyps Plan: on soft diet , recommend low residual continue Protonix 40 mg IVP Continue IV antibiotics as per ID, on Zosyn On Flagyl trend LFT DVT prophylaxsis Surgical follow-up for repeat ct scan prior to removal of drain recommend elective oupt colonoscopy prior to any surgical intervention Seen and discussed with Dr. Rivera. <Madhu Rivera V - Last Filed: 05/12/17 20:51> Objective - Vital Signs/Intake and Output Vital Signs (last 24 hours): Temp Pulse Resp BP Pulse Ox 98.9 F 97 H 71 H 111/74 95 05/12/17 16:00 05/12/17 16:00 05/12/17 16:00 05/12/17 16:00 05/12/17 16:00 Intake and Output: 05/12/17 05/13/17 18:59 06:59 Intake Total 0 Output Total 900 Balance -900 - Medications Medications: Current Medications Acetaminophen (Tylenol 325mg Tab) 650 mg PO Q4 PRN PRN Reason: Fever >100.4 F Heparin Sodium (Porcine) (Heparin) 5,000 units SC Q12 [facility] PRN Reason: Protocol Last Admin: 05/12/17 09:59 Dose: Not Given Hydromorphone HCl (Dilaudid) 1 mg IVP Q4H PRN PRN Reason: Pain, severe (8-10) Last Admin: 05/11/17 22:25 Dose: 1 mg Metronidazole (Flagyl) 500 mg in 100 mls @ 100 mls/hr IVPB Q8 [facility] PRN Reason: Protocol Last Admin: 05/12/17 14:26 Dose: 100 mls/hr Cefazolin Sodium (Ancef 1gm In Ns) 1 gm in 100 mls @ 100 mls/hr IVPB Q8 [facility] PRN Reason: Protocol Last Admin: 05/12/17 15:04 Dose: 100 mls/hr Mupirocin (Bactroban Ointment) 0 gm TOP BID [facility] Last Admin: 05/12/17 17:50 Dose: Not Given Ondansetron HCl (Zofran Inj) 4 mg IVP Q6H PRN PRN Reason: Nausea/Vomiting Pantoprazole Sodium (Protonix Inj) 40 mg IVP DAILY [facility] Last Admin: 05/12/17 09:58 Dose: 40 mg Tramadol HCl (Ultram) 50 mg PO Q6H PRN PRN Reason: Pain, moderate (4-7) Last Admin: 05/12/17 18:24 Dose: 50 mg - Labs Labs: 05/12/17 10:30 05/11/17 07:00 APTT 33.1 Seconds (23.7-30.8) H 05/09/17 18:48 Attending/Attestation - Attestation I have personally seen and examined this patient.: Yes I have fully participated in the care of the patient.: Yes I have reviewed all pertinent clinical information, including history, physical exam and plan: Yes Notes (Text): This is an addendum to GI progress report dictated by Jacey May APN.The patient was seen and examined earlier. Medical records, lab studies, imagings were reviewed. Last 24 hours events reviewed. Agreed with the above treatment plan as outlined in Jacey May APN's notes the with the addition of the following patient is doing well diet has been advanced Abdomen soft drain in place minimum drainage Continue the antibiotics as per ID repeat CT ptior to stent removal next week 05/12/17 20:49
--- NOTE | 2017-05-12 14:32 | CP.PCM.PN ---
<Janet Mcqueen - Last Filed: 05/12/17 14:30> Subjective - Date & Time of Evaluation Date of Evaluation: 05/12/17 Time of Evaluation: 09:00 - Subjective Subjective: PGY-[address] Abrams Patient seen and examined at bedside. No acute distress. Resting comfortably. Patient states abd pain has improved, tenderness at drain site. He denies chest pain, sob, nausea, vomiting, diarrhea, constipation. Patient states that he tolerated liquid diet last night. He is ambulating well. Objective - Vital Signs/Intake and Output Vital Signs (last 24 hours): Temp Pulse Resp BP Pulse Ox 98.5 F 68 20 132/85 98 05/11/17 16:00 05/11/17 16:00 05/11/17 16:00 05/11/17 16:00 05/11/17 16:00 Intake and Output: 05/12/17 05/12/17 06:59 18:59 Intake Total 180 0 Output Total 950 900 Balance -770 -900 - Medications Medications: Current Medications Acetaminophen (Tylenol 325mg Tab) 650 mg PO Q4 PRN PRN Reason: Fever >100.4 F Heparin Sodium (Porcine) (Heparin) 5,000 units SC Q12 [facility] PRN Reason: Protocol Last Admin: 05/12/17 09:59 Dose: Not Given Hydromorphone HCl (Dilaudid) 1 mg IVP Q4H PRN PRN Reason: Pain, severe (8-10) Last Admin: 05/11/17 22:25 Dose: 1 mg Metronidazole (Flagyl) 500 mg in 100 mls @ 100 mls/hr IVPB Q8 [facility] PRN Reason: Protocol Last Admin: 05/12/17 06:58 Dose: 100 mls/hr Cefazolin Sodium (Ancef 1gm In Ns) 1 gm in 100 mls @ 100 mls/hr IVPB Q8 [facility] PRN Reason: Protocol Mupirocin (Bactroban Ointment) 0 gm TOP BID [facility] Last Admin: 05/12/17 09:59 Dose: 1 appl Ondansetron HCl (Zofran Inj) 4 mg IVP Q6H PRN PRN Reason: Nausea/Vomiting Pantoprazole Sodium (Protonix Inj) 40 mg IVP DAILY [facility] Last Admin: 10/19/17 09:58 Dose: 40 mg Tramadol HCl (Ultram) 50 mg PO Q6H PRN PRN Reason: Pain, moderate (4-7) Last Admin: 05/07/17 14:50 Dose: 50 mg - Labs Labs: 05/12/17 10:30 05/11/17 07:00 APTT 33.1 Seconds (23.7-30.8) H 05/09/17 18:48 - Constitutional Appears: No Acute Distress - Head Exam Head Exam: ATRAUMATIC, NORMAL INSPECTION, NORMOCEPHALIC - Eye Exam Eye Exam: EOMI, Normal appearance - ENT Exam ENT Exam: Mucous Membranes Moist - Respiratory Exam Respiratory Exam: Decreased Breath Sounds, Clear to Ausculation Bilateral, NORMAL BREATHING PATTERN. absent: Rales, Rhonchi, Wheezes, Respiratory Distress , Stridor - Cardiovascular Exam Cardiovascular Exam: REGULAR RHYTHM, +S1, +S2. absent: Tachycardia, Murmur - GI/Abdominal Exam GI & Abdominal Exam: Soft, Tenderness (at drainage site ), Normal Bowel Sounds. absent: Distended, Firm, Guarding Additional comments: dressing clean, dry and intact. serosanganious fluid - Extremities Exam Extremities Exam: Normal Inspection. absent: Pedal Edema, Tenderness - Neurological Exam Neurological Exam: Alert, Awake, Oriented x3 - Skin Skin Exam: Dry, Intact, Normal Color, Warm Assessment and Plan - Assessment and Plan (Free Text) Assessment: 37 yo male with PMH of diverticulitis presented with acute sigmoid diverticulitis with abscess s/p CT guided drainage, elevated LFTs. CT abd showed Acute sigmoid diverticulitis with pericolonic abscess measuring 4.4 cm Plan: 1. sigmoid diverticulitis with abscess - CT guided drainage post procedure day #2. Per IR drain will be removed outpatient and patient will need repeat CT outpatient - CT abd with PO and IV contrast on 05/09 reviewed, showed Acute sigmoid diverticulitis with pericolonic abscess measuring 4.4 cm. - MRCP showed gallbladder polyp, no cholelithiasis/cholecystitis, mild hepatic steatosis - cont zosyn prn - tramadol and dilaudid for pain - abx metronidazole and zosyn - tolerating liquid diet - blood cultures negative - fluid cultures positive e. coli - GI, ID and surgery following 2. elevated LFTs - probably due to medication vs ETOH - LFTs cont to downtrend, almost at baseline - viral hepatitis panel negative GI/DVT prophylaxis <Gurpreet Abrams - Last Filed: 05/12/17 17:12> Objective - Vital Signs/Intake and Output Vital Signs (last 24 hours): Temp Pulse Resp BP Pulse Ox 98.5 F 68 20 132/85 98 05/11/17 16:00 05/11/17 16:00 05/11/17 16:00 05/11/17 16:00 05/11/17 16:00 Intake and Output: 05/12/17 05/12/17 06:59 18:59 Intake Total 180 0 Output Total 950 900 Balance -770 -900 - Medications Medications: Current Medications Acetaminophen (Tylenol 325mg Tab) 650 mg PO Q4 PRN PRN Reason: Fever >100.4 F Heparin Sodium (Porcine) (Heparin) 5,000 units SC Q12 [facility] PRN Reason: Protocol Last Admin: 05/12/17 09:59 Dose: Not Given Hydromorphone HCl (Dilaudid) 1 mg IVP Q4H PRN PRN Reason: Pain, severe (8-10) Last Admin: 05/11/17 22:25 Dose: 1 mg Metronidazole (Flagyl) 500 mg in 100 mls @ 100 mls/hr IVPB Q8 [facility] PRN Reason: Protocol Last Admin: 05/12/17 06:58 Dose: 100 mls/hr Cefazolin Sodium (Ancef 1gm In Ns) 1 gm in 100 mls @ 100 mls/hr IVPB Q8 [facility] PRN Reason: Protocol Last Admin: 05/12/17 15:04 Dose: 100 mls/hr Mupirocin (Bactroban Ointment) 0 gm TOP BID [facility] Last Admin: 05/12/17 09:59 Dose: 1 appl Ondansetron HCl (Zofran Inj) 4 mg IVP Q6H PRN PRN Reason: Nausea/Vomiting Pantoprazole Sodium (Protonix Inj) 40 mg IVP DAILY [facility] Last Admin: 05/12/17 09:58 Dose: 40 mg Tramadol HCl (Ultram) 50 mg PO Q6H PRN PRN Reason: Pain, moderate (4-7) Last Admin: 05/07/17 14:50 Dose: 50 mg - Labs Labs: 05/12/17 10:30 05/11/17 07:00 APTT 33.1 Seconds (23.7-30.8) H 05/09/17 18:48 Assessment and Plan - Assessment and Plan (Free Text) Plan: Pt seen and examined. Agree with above note of esthetician and manager medical spa. Labs and meds reviewed. I reviewed the note of the workforce management consultant on the case. Pt remains on a liq diet. Will wait input from GI and surgery about D/C. Once pt is able to tolerate PO he can be discharged home. Will repeat CT as outpt and Dr Aamir Judge will pull this drain.
[2017-05-12] MEDS: ceFAZolin 1 gm in NS 1 GM/100 ML BAG IVPB SCH ×2 (15:04→22:15)
--- NOTE | 2017-05-12 20:58 | CP.PCM.PN ---
Subjective - Date & Time of Evaluation Date of Evaluation: 05/12/17 Time of Evaluation: 09:25 - Subjective Subjective: Comfortable, much improved abdominal pain, no fevers overnight. Objective - Vital Signs/Intake and Output Vital Signs (last 24 hours): Temp Pulse Resp BP Pulse Ox 98.5 F 68 20 132/85 98 05/11/17 16:00 05/11/17 16:00 05/11/17 16:00 05/11/17 16:00 05/11/17 16:00 Intake and Output: 05/12/17 05/12/17 06:59 18:59 Intake Total 180 0 Output Total 950 900 Balance -770 -900 - Medications Medications: Current Medications Acetaminophen (Tylenol 325mg Tab) 650 mg PO Q4 PRN PRN Reason: Fever >100.4 F Heparin Sodium (Porcine) (Heparin) 5,000 units SC Q12 [facility] PRN Reason: Protocol Last Admin: 05/11/17 21:43 Dose: Not Given Hydromorphone HCl (Dilaudid) 1 mg IVP Q4H PRN PRN Reason: Pain, severe (8-10) Last Admin: 05/11/17 22:25 Dose: 1 mg Metronidazole (Flagyl) 500 mg in 100 mls @ 100 mls/hr IVPB Q8 [facility] PRN Reason: Protocol Last Admin: 05/12/17 06:58 Dose: 100 mls/hr Cefazolin Sodium (Ancef 1gm In Ns) 1 gm in 100 mls @ 100 mls/hr IVPB Q8 [facility] PRN Reason: Protocol Mupirocin (Bactroban Ointment) 0 gm TOP BID [facility] Last Admin: 05/11/17 19:06 Dose: Not Given Ondansetron HCl (Zofran Inj) 4 mg IVP Q6H PRN PRN Reason: Nausea/Vomiting Pantoprazole Sodium (Protonix Inj) 40 mg IVP DAILY [facility] Last Admin: 05/11/17 09:30 Dose: 40 mg Tramadol HCl (Ultram) 50 mg PO Q6H PRN PRN Reason: Pain, moderate (4-7) Last Admin: 05/07/17 14:50 Dose: 50 mg - Labs Labs: 05/11/17 07:00 05/11/17 07:00 APTT 33.1 Seconds (23.7-30.8) H 05/09/17 18:48 - Constitutional Appears: Non-toxic, No Acute Distress - Head Exam Head Exam: NORMAL INSPECTION - ENT Exam ENT Exam: Mucous Membranes Moist - Respiratory Exam Respiratory Exam: Decreased Breath Sounds. absent: Rales - Cardiovascular Exam Cardiovascular Exam: +S1, +S2 - GI/Abdominal Exam GI & Abdominal Exam: Soft. absent: Tenderness Additional comments: abdominal drain in place Assessment and Plan - Assessment and Plan (Free Text) Plan: Assessment Acute diverticulitis with microperforation and abscess formation S/P IR-guided drainage POD #2 in a patient with history of diverticulitis, growing E. coli gallbladder polyp and seen on MRCP Plan changed Zosyn to Cefazolin and Flagyl (day 8); liver enzymes are somewhat elevated but has trended down, MRCP showed gallbladder polyp which should be observed - GI following; can be switched to Keflex and Flagyl or Augmentin on discharge will continue to monitor clinically
[2017-05-13] MEDS: ceFAZolin 1 gm in NS 1 GM/100 ML BAG IVPB SCH (05:42)
[2017-05-13] MEDS: metroNIDAZOLE IV 500 mg/100 ml 500 MG/100 ML BAG IVPB SCH (06:55)
[2017-05-13 07:07] LABS: BASO # 0.03 K/mm3 (0.0-2.0); BASO % 0.3 % (0.0-3.0); EOS # 0.2 (0.0-0.7); EOS % 1.9 % (1.5-5.0); GRAN # 5.8 (1.4-6.5); GRAN % 66.4 % (50.0-68.0); HEMATOCRIT 39.4 % (42.0-52.0); LYMPH % 22.6 % (22.0-35.0); MEAN CORPUSCULAR HEMOGLOBIN 28.4 pg (25.0-35.0); MEAN CORPUSCULAR HGB CONC 33.8 g/dl (31.0-37.0); MEAN PLATELET VOLUME 8.4 fl (7.0-11.0); MONO # 0.8 (0.1-0.6); MONO % 8.8 % (1.0-6.0); WHITE BLOOD COUNT 8.8 10^3/ul (4.5-11.0)
--- NOTE | 2017-05-13 08:40 | CP.PCM.PN ---
Subjective - Date & Time of Evaluation Date of Evaluation: 05/13/17 Time of Evaluation: 07:10 - Subjective Subjective: General Surgery Note for Dr. Reina Patient seen and examined at bedside. No acute event overnight. Patient states pain is well controlled. He is eager to leave. Patient denies nausea/vomiting. He states he is having bowel movements and flatus. No other complaints today. Objective - Vital Signs/Intake and Output Vital Signs (last 24 hours): Temp Pulse Resp BP Pulse Ox 98.9 F 97 H 71 H 111/74 95 05/12/17 16:00 05/12/17 16:00 05/12/17 16:00 05/12/17 16:00 05/12/17 16:00 Intake and Output: 05/13/17 05/13/17 06:59 18:59 Intake Total 840 0 Output Total 700 600 Balance 140 -600 - Medications Medications: Current Medications Acetaminophen (Tylenol 325mg Tab) 650 mg PO Q4 PRN PRN Reason: Fever >100.4 F Heparin Sodium (Porcine) (Heparin) 5,000 units SC Q12 [facility] PRN Reason: Protocol Last Admin: 05/12/17 21:09 Dose: Not Given Hydromorphone HCl (Dilaudid) 1 mg IVP Q4H PRN PRN Reason: Pain, severe (8-10) Last Admin: 05/11/17 22:25 Dose: 1 mg Metronidazole (Flagyl) 500 mg in 100 mls @ 100 mls/hr IVPB Q8 [facility] PRN Reason: Protocol Last Admin: 05/13/17 06:55 Dose: 100 mls/hr Cefazolin Sodium (Ancef 1gm In Ns) 1 gm in 100 mls @ 100 mls/hr IVPB Q8 [facility] PRN Reason: Protocol Last Admin: 05/13/17 05:42 Dose: 100 mls/hr Mupirocin (Bactroban Ointment) 0 gm TOP BID [facility] Last Admin: 05/12/17 17:50 Dose: Not Given Ondansetron HCl (Zofran Inj) 4 mg IVP Q6H PRN PRN Reason: Nausea/Vomiting Pantoprazole Sodium (Protonix Inj) 40 mg IVP DAILY [facility] Last Admin: 05/12/17 09:58 Dose: 40 mg Tramadol HCl (Ultram) 50 mg PO Q6H PRN PRN Reason: Pain, moderate (4-7) Last Admin: 05/12/17 18:24 Dose: 50 mg - Labs Labs: 05/13/17 06:52 05/11/17 07:00 APTT 33.1 Seconds (23.7-30.8) H 05/09/17 18:48 - Constitutional Appears: No Acute Distress - Head Exam Head Exam: ATRAUMATIC, NORMOCEPHALIC - Eye Exam Eye Exam: Normal appearance - ENT Exam ENT Exam: Mucous Membranes Moist - Respiratory Exam Respiratory Exam: NORMAL BREATHING PATTERN - Cardiovascular Exam Cardiovascular Exam: REGULAR RHYTHM - GI/Abdominal Exam GI & Abdominal Exam: Soft, Tenderness (at drain site), Normal Bowel Sounds. absent: Distended, Firm, Guarding, Rigid Additional comments: drain in place in LLQ - Extremities Exam Extremities Exam: Normal Capillary Refill - Neurological Exam Neurological Exam: Alert, Awake, Oriented x3 - Psychiatric Exam Psychiatric exam: Normal Affect, Normal Mood - Skin Skin Exam: Dry, Intact, Normal Color, Warm Assessment and Plan - Assessment and Plan (Free Text) Plan: 37 M with diverticulitis with abscess s/p IR drainage POD #3 -ADAT -IV Abx as per ID -Monitor WBC -OOB and Ambulation -Possible DC today -DW Dr Nuno Jara PGY1
--- NOTE | 2017-05-13 11:06 | CP.PCM.PN ---
<Jacey May - Last Filed: 05/13/17 11:03> Subjective - Date & Time of Evaluation Date of Evaluation: 05/13/17 Time of Evaluation: 08:00 - Subjective Subjective: Seen and examined at the bedside earlier today, chart was reviewed. Patient moving his bowels, denies any melena or bright red blood per rectum. Abdominal pain continues to improve, his left lower quadrant drain notice bloody drain. Reported to be minimal amount. Tolerating ssoft diet, denies nausea, vomiting. No fever or chills. Objective - Vital Signs/Intake and Output Vital Signs (last 24 hours): Temp Pulse Resp BP Pulse Ox 98.9 F 97 H 71 H 111/74 95 05/12/17 16:00 05/12/17 16:00 05/12/17 16:00 05/12/17 16:00 05/12/17 16:00 Intake and Output: 05/13/17 05/13/17 06:59 18:59 Intake Total 840 0 Output Total 700 600 Balance 140 -600 - Medications Medications: Current Medications Acetaminophen (Tylenol 325mg Tab) 650 mg PO Q4 PRN PRN Reason: Fever >100.4 F Heparin Sodium (Porcine) (Heparin) 5,000 units SC Q12 [facility] PRN Reason: Protocol Last Admin: 05/12/17 21:09 Dose: Not Given Hydromorphone HCl (Dilaudid) 1 mg IVP Q4H PRN PRN Reason: Pain, severe (8-10) Last Admin: 05/11/17 22:25 Dose: 1 mg Metronidazole (Flagyl) 500 mg in 100 mls @ 100 mls/hr IVPB Q8 [facility] PRN Reason: Protocol Last Admin: 05/13/17 06:55 Dose: 100 mls/hr Cefazolin Sodium (Ancef 1gm In Ns) 1 gm in 100 mls @ 100 mls/hr IVPB Q8 [facility] PRN Reason: Protocol Last Admin: 05/13/17 05:42 Dose: 100 mls/hr Mupirocin (Bactroban Ointment) 0 gm TOP BID [facility] Last Admin: 05/12/17 17:50 Dose: Not Given Ondansetron HCl (Zofran Inj) 4 mg IVP Q6H PRN PRN Reason: Nausea/Vomiting Pantoprazole Sodium (Protonix Inj) 40 mg IVP DAILY [facility] Last Admin: 05/12/17 09:58 Dose: 40 mg Tramadol HCl (Ultram) 50 mg PO Q6H PRN PRN Reason: Pain, moderate (4-7) Last Admin: 05/12/17 18:24 Dose: 50 mg - Labs Labs: 05/13/17 06:52 05/11/17 07:00 APTT 33.1 Seconds (23.7-30.8) H 05/09/17 18:48 - Constitutional Appears: No Acute Distress - Head Exam Head Exam: NORMOCEPHALIC - Eye Exam Eye Exam: Normal appearance. absent: Scleral icterus - ENT Exam ENT Exam: Mucous Membranes Moist - Neck Exam Neck Exam: Normal Inspection - Respiratory Exam Respiratory Exam: NORMAL BREATHING PATTERN. absent: Respiratory Distress - Cardiovascular Exam Cardiovascular Exam: +S1, +S2 - GI/Abdominal Exam GI & Abdominal Exam: Soft, Tenderness (mild tenderness at drain site no rebound or guarding.), Normal Bowel Sounds. absent: Guarding, Rebound - Extremities Exam Extremities Exam: Normal Capillary Refill. absent: Pedal Edema - Back Exam Back Exam: absent: CVA tenderness (L) - Neurological Exam Neurological Exam: Alert, Awake, Oriented x3 Assessment and Plan - Assessment and Plan (Free Text) Assessment: ssessment: Acute diverticulitis with microperforation, s/p repeat ct scan:The CT scan showed a possible abscess collection and a thickening of the distal ileum segment close to the inflammatory area, S/p ct guided drain of abscess with drain. GB:cholesterol polyposis, s/p abdominal US and MRCP, no acute findings GERD Elevated liver enzymes, improving History of esophageal ulcer History of Trejo's esophagus History of colon polyps Plan: on soft diet , recommend low residual continue Protonix 40 mg IVP Continue IV antibiotics as per ID, on Zosyn On Flagyl trend LFT DVT prophylaxsis Surgical follow-up for repeat ct scan prior to removal of drain, right now plan is for next Tuesday. recommend elective outpt colonoscopy prior to any surgical intervention possible DC today, antibiotics as per ID Spoke to nursing staff regarding, to contact for clarification of homecare of drain site upon discharge,discussed with Dr. Abrams. Seen and discussed with Dr. Rivera. <Madhu Rivera V - Last Filed: 05/14/17 21:49> Objective - Vital Signs/Intake and Output Vital Signs (last 24 hours): Temp Pulse Resp BP Pulse Ox 98.0 F 72 20 110/66 96 05/13/17 06:00 05/13/17 06:00 05/13/17 06:00 05/13/17 06:00 05/13/17 06:00 - Labs Labs: 05/13/17 06:52 05/11/17 07:00 APTT 33.1 Seconds (23.7-30.8) H 05/09/17 18:48 Attending/Attestation - Attestation I have personally seen and examined this patient.: Yes I have fully participated in the care of the patient.: Yes I have reviewed all pertinent clinical information, including history, physical exam and plan: Yes Notes (Text): This is an addendum to GI progress report dictated by Jacey May APN.The patient was seen and examined earlier. Medical records, lab studies, imagings were reviewed. Last 24 hours events reviewed. Agreed with the above treatment plan as outlined in Jacey May APN's notes the with the addition of the following this patient was seen earlier discussed with the Dr. Ramírez Discussed with also nursing staff. Patient has significantly improved and tolerating the diet on examination significant decrease in the tenderness. Drain output was fairly less Plan to discharge. Antibiotics as per ID [place] for more of the brain on Tuesday after repeat CT
--- NOTE | 2017-05-13 11:21 | PN ---
DATE: 05/13/2017 SUBJECTIVE: Patient is in bed. He is awake and alert. He is doing well. No pain. PHYSICAL EXAMINATION: VITAL SIGNS: Temperature is 98, blood pressure is 111/70, respiratory rate of 18. HEENT: Unremarkable. NECK: Supple. LUNGS: Have decreased breath sounds. HEART: Normal S1 and S2. ABDOMEN: Soft, nontender. LABORATORY EXAMINATION: Reveals white count is 8.8, hemoglobin of 13, platelets of 438. Chemistries reveal a BUN of 5, creatinine of 0.7. Urinalysis is noted. HIV is negative. Hepatitis profile is negative. There is E. coli from the body fluid culture which is pansensitive. MEDICATIONS: Review of orders reveals the patient to be on IV Flagyl and IV Ancef. ASSESSMENT AND PLAN: This is a 37-year-old male with acute sigmoid diverticulitis with microperforation and abscess formation, status post IR-guided drainage postprocedure day #3 with sensitive Escherichia coli growing from that with a gallbladder polyp seen on MRCP, currently on cefazolin and Flagyl day #8. Patient is scheduled for repeat CAT scan and he is able to switch to Keflex and Flagyl p.o. or Augmentin p.o. upon discharge if clinically stable. Norman Waldron MD
[2017-05-13 11:25] VITALS: BP 110/66; PULSE 72; RESP 20; TEMP 98; O2SAT 96
--- NOTE | 2017-05-13 11:54 | CP.PCM.PN ---
<Janet Mcqueen - Last Filed: 05/13/17 11:54> Subjective - Date & Time of Evaluation Date of Evaluation: 05/13/17 Time of Evaluation: 08:00 - Subjective Subjective: PGY-[address] Abrams Patient seen and examined at bedside. No acute distress. Resting comfortably. Patient states abd pain has improved, tenderness at drain site especially with movement. He denies chest pain, sob, nausea, vomiting, diarrhea, constipation. Patient states that he tolerating diet. He is ambulating well. Objective - Vital Signs/Intake and Output Vital Signs (last 24 hours): Temp Pulse Resp BP Pulse Ox 98.0 F 72 20 110/66 96 05/13/17 06:00 05/13/17 06:00 05/13/17 06:00 05/13/17 06:00 05/13/17 06:00 Intake and Output: 05/13/17 05/13/17 06:59 18:59 Intake Total 840 0 Output Total 700 600 Balance 140 -600 - Medications Medications: Current Medications Acetaminophen (Tylenol 325mg Tab) 650 mg PO Q4 PRN PRN Reason: Fever >100.4 F Heparin Sodium (Porcine) (Heparin) 5,000 units SC Q12 [facility] PRN Reason: Protocol Last Admin: 05/12/17 21:09 Dose: Not Given Hydromorphone HCl (Dilaudid) 1 mg IVP Q4H PRN PRN Reason: Pain, severe (8-10) Last Admin: 05/11/17 22:25 Dose: 1 mg Metronidazole (Flagyl) 500 mg in 100 mls @ 100 mls/hr IVPB Q8 [facility] PRN Reason: Protocol Last Admin: 05/13/17 06:55 Dose: 100 mls/hr Cefazolin Sodium (Ancef 1gm In Ns) 1 gm in 100 mls @ 100 mls/hr IVPB Q8 [facility] PRN Reason: Protocol Last Admin: 05/13/17 05:42 Dose: 100 mls/hr Mupirocin (Bactroban Ointment) 0 gm TOP BID [facility] Last Admin: 05/12/17 17:50 Dose: Not Given Ondansetron HCl (Zofran Inj) 4 mg IVP Q6H PRN PRN Reason: Nausea/Vomiting Pantoprazole Sodium (Protonix Inj) 40 mg IVP DAILY [facility] Last Admin: 05/12/17 09:58 Dose: 40 mg Tramadol HCl (Ultram) 50 mg PO Q6H PRN PRN Reason: Pain, moderate (4-7) Last Admin: 05/12/17 18:24 Dose: 50 mg - Labs Labs: 05/13/17 06:52 05/11/17 07:00 APTT 33.1 Seconds (23.7-30.8) H 05/09/17 18:48 - Constitutional Appears: Well, No Acute Distress - Head Exam Head Exam: ATRAUMATIC, NORMAL INSPECTION, NORMOCEPHALIC - Eye Exam Eye Exam: EOMI, Normal appearance - ENT Exam ENT Exam: Mucous Membranes Moist - Respiratory Exam Respiratory Exam: Clear to Ausculation Bilateral, NORMAL BREATHING PATTERN. absent: Decreased Breath Sounds, Rales, Rhonchi, Wheezes, Respiratory Distress, Stridor - Cardiovascular Exam Cardiovascular Exam: REGULAR RHYTHM, +S1, +S2. absent: Tachycardia, Murmur - GI/Abdominal Exam GI & Abdominal Exam: Soft, Tenderness (at drain site, serosanganious fluid), Normal Bowel Sounds. absent: Distended, Firm, Guarding - Extremities Exam Extremities Exam: Normal Inspection. absent: Pedal Edema, Tenderness - Neurological Exam Neurological Exam: Alert, Awake, Oriented x3 - Skin Skin Exam: Dry, Intact, Normal Color, Warm Assessment and Plan - Assessment and Plan (Free Text) Assessment: 37 yo male with PMH of diverticulitis presented with acute sigmoid diverticulitis with abscess s/p CT guided drainage, elevated LFTs. CT abd showed Acute sigmoid diverticulitis with pericolonic abscess measuring 4.4 cm Plan: 1. sigmoid diverticulitis with abscess - CT guided drainage post procedure day #3. Per IR drain will be removed outpatient and patient will need repeat CT outpatient - CT abd with PO and IV contrast on 05/09 reviewed, showed Acute sigmoid diverticulitis with pericolonic abscess measuring 4.4 cm. - MRCP showed gallbladder polyp, no cholelithiasis/cholecystitis, mild hepatic steatosis - cont zosyn prn - tramadol and dilaudid for pain - abx cefazolin and metronidazole - tolerating liquid diet - blood cultures negative - fluid cultures positive e. coli - Will discuss with GI and surgery about d/c 2. elevated LFTs - probably due to medication vs ETOH - am labs reviewed, LFTs cont to downtrend, almost at baseline - viral hepatitis panel negative GI/DVT prophylaxis <Gurpreet Abrams - Last Filed: 05/13/17 20:01> Objective - Vital Signs/Intake and Output Vital Signs (last 24 hours): Temp Pulse Resp BP Pulse Ox 98.0 F 72 20 110/66 96 05/13/17 06:00 05/13/17 06:00 05/13/17 06:00 05/13/17 06:00 05/13/17 06:00 Intake and Output: 05/13/17 05/14/17 18:59 06:59 Intake Total 0 Output Total 600 Balance -600 - Labs Labs: 05/13/17 06:52 05/11/17 07:00 APTT 33.1 Seconds (23.7-30.8) H 05/09/17 18:48 Assessment and Plan - Assessment and Plan (Free Text) Plan: Pt is seen and examined. Note of medical research tech reviewed and I am in agree with it. Reviewed Labs and medications. Reviewed notes. Pt to be discharged home. Out-pt CT and removal of catheter to be done. Spoke to GI and ok to D/C.
== END 2017-05-13 16:25 | disposition home or self-care (01) | DRG 392 ==
LOC: ED 10:28 → ERH 15:41 → 3RNO 18:09
PROVIDERS: ADMIT Internal Medicine Nephrology; ATTEND Internal Medicine Nephrology
PROC: 0W9J30Z Drainage of Pelvic Cavity with Drainage Device, Percutaneous Approach (ICD-10-PCS; principal; 2017-05-10 08:00)
DX: K57.20 Diverticulitis of large intestine with perforation and abscess without bleeding (principal); K22.70 Barrett's esophagus without dysplasia; D64.9 Anemia, unspecified; K82.4 Cholesterolosis of gallbladder; K21.9 Gastro-esophageal reflux disease without esophagitis; D72.829 Elevated white blood cell count, unspecified; F17.210 Nicotine dependence, cigarettes, uncomplicated; Z86.010 Personal history of colon polyps; Z87.442 Personal history of urinary calculi; Z80.0 Family history of malignant neoplasm of digestive organs

== ENCOUNTER 2017-06-06 13:10 | Day surgery (SDC) | payer BC ==
[2017-05-30 12:00] VITALS: BMI 27.0
[2017-06-06] MEDS ORDERED: Propofol 10 mg/ml Inj (20 ML) ONE (14:45)
[2017-06-06] MEDS ORDERED: Sodium Chloride 0.9% 1,000 ML IV SCH (15:15)
[2017-06-06 15:36] VITALS: RESP 16
[2017-06-06 15:56] VITALS: BP 122/70; PULSE 52; TEMP 98.1; O2SAT 98
[2017-06-07 07:22] LABS: BASO # 0.02 K/mm3 (0.0-2.0); BASO % 0.4 % (0.0-3.0); EOS # 0.2 (0.0-0.7); EOS % 2.7 % (1.5-5.0); GRAN # 3.35 (1.4-6.5); GRAN % 59.9 % (50.0-68.0); HEMATOCRIT 47.3 % (42.0-52.0); LYMPH # 1.7 (1.2-3.4); LYMPH % 30.4 % (22.0-35.0); MEAN CELL VOLUME 86.2 fl (80.0-105.0); MEAN CORPUSCULAR HGB CONC 33.6 g/dl (31.0-37.0); MEAN PLATELET VOLUME 9.4 fl (7.0-11.0); MONO # 0.4 (0.1-0.6); MONO % 6.6 % (1.0-6.0); RED CELL DISTRIBUTION WIDTH 13.6 % (11.5-14.5); WHITE BLOOD COUNT 5.6 10^3/ul (4.5-11.0)
[2017-06-07 07:25] LABS: BLOOD UREA NITROGEN 8 mg/dL (7-21); CALCIUM 10.4 mg/dL (8.4-10.5); CARBON DIOXIDE 22 mmol/L (21-33); CHLORIDE 106 mmol/L (98-107); GFR AFRICAN-AMERICAN > 60; GLUCOSE,RANDOM 90 mg/dL (70-110); POTASSIUM 4.2 mmol/L (3.6-5.0); SODIUM 141 mmol/L (132-148)
[2017-06-07 07:29] LABS: INR 1.02 (0.93-1.08); PARTIAL THROMBOPLASTIN TIME 30.7 Seconds (25.1-36.5)
== END 2017-06-06 16:36 | disposition home or self-care (01) ==
LOC: SDS 13:10 → EDSTATUS 14:30 → SDS 16:36
PROVIDERS: ATTEND Internal Medicine Gastroenterology
DX: K57.30 Diverticulosis of large intestine without perforation or abscess without bleeding (principal); K64.8 Other hemorrhoids
CPT/HCPCS: 45378; J2001; J2704; J7040 ×2

== ENCOUNTER 2017-06-07 06:40 | Inpatient (IN) | payer BC ==
[2017-05-30 12:00] VITALS: BMI 27.0
[2017-06-07] MEDS ORDERED: cefTRIAXone (Rocephin) 1 gm Inj ONE (07:24)
[2017-06-07] MEDS ORDERED: Bupivacaine 0.5% Inj(30mL) ONE (07:24)
[2017-06-07] MEDS ORDERED: metroNIDAZOLE IV 500 mg/100 ml 500 MG/100 ML BAG ONE (07:24)
[2017-06-07] MEDS ORDERED: Midazolam 2 MG/2 ML VIAL ONE (07:58)
[2017-06-07] MEDS ORDERED: Propofol 10 mg/ml Inj (20 ML) ONE (07:58)
[2017-06-07] MEDS ORDERED: Rocuronium 10 mg/ml (5 ml) ONE ×2 (07:59→08:45)
[2017-06-07] MEDS ORDERED: Lidocaine 2% Inj (20ml) ONE (07:59)
[2017-06-07] MEDS ORDERED: Succinylcholine 200 mg/10 ml Inj IV ONE (08:00)
[2017-06-07] MEDS ORDERED: cefTRIAXone (Rocephin) 1 gm Inj IVPB ONE (08:07)
[2017-06-07] MEDS ORDERED: MetroNIDAZOLE 500 mg/100 ml IVPB ONE (08:15)
[2017-06-07] MEDS ORDERED: Bupivacaine 0.5% Inj(30mL) IJ ONE ×3 (08:42→12:02)
[2017-06-07] MEDS ORDERED: Glycopyrrolate 0.2 mg/ml (2ml vial) ONE (11:24)
[2017-06-07] MEDS ORDERED: Neostigmine Methylsulfate 3mg/3ml Syringe IV ONE (11:38)
[2017-06-07] MEDS ORDERED: HYDROmorphone 0.5 mg/0.5 ml ISec IVP PRN (12:21)
--- NOTE | 2017-06-07 12:22 | PCM.SURG1 ---
<Kristin Barclay - Last Filed: 06/07/17 12:20> Surgeon's Initial Post Op Note - Surgeon's Notes Surgeon: Dr. Reina Outside [employer] Sales: Dr. Barclay, PGY-3, Dr. Frederick PGY-2 Type of Anesthesia: General Endo Pre-Operative Diagnosis: Diverticulosis Operative Findings: See operative report Post-Operative Diagnosis: Same Operation Performed: Laparoscopic Sigmoid colon resection with low anterior anastomosis Specimen/Specimens Removed: Sigmoid colon Estimated Blood Loss: EBL {In ML}: 50 Blood Products Given: N/A Drains Used: Gilbert Post-Op Condition: Good Date of Surgery/Procedure: 06/07/17 Time of Surgery/Procedure: 12:22 <Freddie Reina - Last Filed: 06/08/17 19:33> Surgeon's Initial Post Op Note - Surgeon's Notes Operation Performed: Laparoscopic Rectosigmoid colon resection with low anterior anastomosis Specimen/Specimens Removed: Rectosigmoid colon
[2017-06-07] MEDS ORDERED: Sodium Chloride 0.9% 1,000 ML IV SCH (12:30)
[2017-06-07] MEDS ORDERED: HYDROmorphone 0.5 mg/0.5 ml ISec IVP STA ×2 (12:31→16:16)
[2017-06-07] MEDS ORDERED: HYDROmorphone 0.5 mg/0.5 ml ISec ONE ×2 (12:50→13:17)
[2017-06-07] MEDS ORDERED: HYDROmorphone 0.5 mg/0.5 ml ISec IVP ONE ×2 (12:53→13:25)
[2017-06-07] MEDS: metroNIDAZOLE IV 500 mg/100 ml 500 MG/100 ML BAG IVPB SCH ×2 (16:08→23:53)
[2017-06-07] MEDS: Lactated Ringer's 1,000 ML IV SCH (16:09)
[2017-06-07] MEDS ORDERED: cefOXitin Sodium 1 GM in Sodium Chloride 0.9% 100 ML IV SCH (17:17)
[2017-06-07] MEDS: HYDROmorphone 1 mg/ml ISec IVP PRN ×2 (18:39→22:24)
[2017-06-08] MEDS ORDERED: HYDROmorphone 0.5 mg/0.5 ml ISec IVP STA (00:17)
[2017-06-08] MEDS: cefOXitin Sodium 1 GM in Sodium Chloride 0.9% 100 ML IV SCH ×2 (01:07→09:01)
[2017-06-08] MEDS: Lactated Ringer's 1,000 ML IV SCH (01:09)
[2017-06-08] MEDS: HYDROmorphone 1 mg/ml ISec IVP PRN ×7 (01:19→23:44)
[2017-06-08] MEDS ORDERED: HYDROmorphone 0.5 mg/0.5 ml ISec IVP PRN (05:36)
[2017-06-08 06:17] LABS: HEMATOCRIT 41.3 % (42.0-52.0); MEAN CELL VOLUME 85.2 fl (80.0-105.0); MEAN CORPUSCULAR HEMOGLOBIN 28.9 pg (25.0-35.0); MEAN CORPUSCULAR HGB CONC 33.9 g/dl (31.0-37.0); MEAN PLATELET VOLUME 9.5 fl (7.0-11.0); RED CELL DISTRIBUTION WIDTH 13.4 % (11.5-14.5); WHITE BLOOD COUNT 13.1 10^3/ul (4.5-11.0)
[2017-06-08 06:30] LABS: ALB/GLOB RATIO 1.4 (1.1-1.8); ALKALINE PHOSPHATASE 68 U/L (38-126); ALT/SGPT 54 U/L (7-56); AST/SGOT 33 U/L (17-59); BILIRUBIN,TOTAL 0.8 mg/dL (0.2-1.3); BLOOD UREA NITROGEN 9 mg/dL (7-21); CALCIUM 9.5 mg/dL (8.4-10.5); CARBON DIOXIDE 27 mmol/L (21-33); CHLORIDE 100 mmol/L (98-107); GFR AFRICAN-AMERICAN > 60; GLUCOSE,RANDOM 115 mg/dL (70-110); POTASSIUM 4.4 mmol/L (3.6-5.0); SODIUM 138 mmol/L (132-148); TOTAL PROTEIN 7.7 g/dL (5.8-8.3)
[2017-06-08] MEDS: Enoxaparin 30 mg Syringe SC SCH ×2 (09:03→09:12)
[2017-06-08] MEDS ORDERED: Oxycodone/Acetaminophen 5/325 mg Tab PO PRN (11:56)
--- NOTE | 2017-06-08 13:00 | CP.PCM.PN ---
<Kristin Barclay - Last Filed: 06/08/17 12:57> Subjective - Date & Time of Evaluation Date of Evaluation: 06/08/17 Time of Evaluation: 08:00 - Subjective Subjective: Surgery: Dr. Reina Pt seen and examined. No acute events overnight. Pt is POD#1 from laparoscopic sigmoid colon resection. Pain well controlled with dilaudid at this time. Adequate UOP in [place] overnight. Serosang output in [place] drain. Denies N/V, F/ C. Objective - Vital Signs/Intake and Output Vital Signs (last 24 hours): Temp Pulse Resp BP Pulse Ox 98 F 69 20 123/67 96 06/08/17 08:35 06/08/17 08:35 06/08/17 08:35 06/08/17 08:35 06/08/17 08:35 Intake and Output: 06/08/17 06/08/17 06:59 18:59 Intake Total 2450 Output Total 3810 Balance -1360 - Medications Medications: Current Medications Enoxaparin Sodium (Lovenox) 40 mg SC DAILY [facility] PRN Reason: Protocol Hydromorphone HCl (Dilaudid) 1 mg IVP Q3H PRN PRN Reason: Pain, severe (8-10) Last Admin: 06/08/17 10:08 Dose: 1 mg Potassium Chloride 10 meq/ (Dextrose/Sodium Chloride) 1,005 mls @ 70 mls/hr IV .[id number] [facility] Ondansetron HCl (Zofran Inj) 4 mg IVP Q4H PRN PRN Reason: Nausea/Vomiting Oxycodone/Acetaminophen (Percocet 5/325 Mg Tab) 2 tab PO Q4H PRN PRN Reason: Pain, moderate (4-7) Stop: 06/11/17 11:57 - Labs Labs: 06/08/17 06:00 06/08/17 06:00 - Constitutional Appears: Well, No Acute Distress - Head Exam Head Exam: ATRAUMATIC, NORMOCEPHALIC - ENT Exam ENT Exam: Mucous Membranes Moist - Respiratory Exam Respiratory Exam: NORMAL BREATHING PATTERN - Cardiovascular Exam Cardiovascular Exam: REGULAR RHYTHM, RRR - GI/Abdominal Exam GI & Abdominal Exam: Soft, Tenderness (around incision sites, C/D/I). absent: Distended, Guarding - Neurological Exam Neurological Exam: Alert, Awake, Oriented x3 - Skin Skin Exam: Dry, Intact, Warm Assessment and Plan - Assessment and Plan (Free Text) Assessment: 37M s/p lap sigmoid colon resection with low anterior anastomosis; POD#1 Plan: - DC NGT & Rivera - Start CLD, will advance slowly - monitor bowel function - pain control; transition from IV meds to PO - encourage ambulation/IS use - d/w Dr. Nuno Barclay, PGY-3 Surgery <Freddie Reina - Last Filed: 06/08/17 19:39> Objective - Vital Signs/Intake and Output Vital Signs (last 24 hours): Temp Pulse Resp BP Pulse Ox 97.7 F 61 18 138/84 97 06/08/17 16:00 06/08/17 16:00 06/08/17 16:00 06/08/17 16:00 06/08/17 16:00 Intake and Output: 06/08/17 06/09/17 18:59 06:59 Intake Total 0 Balance 0 - Medications Medications: Current Medications Enoxaparin Sodium (Lovenox) 40 mg SC DAILY [facility] PRN Reason: Protocol Hydromorphone HCl (Dilaudid) 1 mg IVP Q3H PRN PRN Reason: Pain, severe (8-10) Last Admin: 06/08/17 16:54 Dose: 1 mg Potassium Chloride 10 meq/ (Dextrose/Sodium Chloride) 1,005 mls @ 70 mls/hr IV .[id number] [facility] Last Admin: 06/08/17 14:01 Dose: 70 mls/hr Ondansetron HCl (Zofran Inj) 4 mg IVP Q4H PRN PRN Reason: Nausea/Vomiting Oxycodone/Acetaminophen (Percocet 5/325 Mg Tab) 2 tab PO Q4H PRN PRN Reason: Pain, moderate (4-7) Stop: 06/11/17 11:57 - Labs Labs: 06/08/17 06:00 06/08/17 06:00 Assessment and Plan - Assessment and Plan (Free Text) Plan: Patient was seen, evaluated and examined by me. I agree with the assessment and plan as per the resident's note.
[2017-06-08] MEDS: Potassium Chloride 10 MEQ in Dextrose 5%/0.45% NS 1,000 ML IV SCH (14:01)
[2017-06-08] MEDS ORDERED: Alum-Mag Hydrox-Simethicone Susp (30 mL) PO ONE (21:29)
[2017-06-08] MEDS ORDERED: Pantoprazole 40 mg EC Tab PO SCH (21:29)
[2017-06-09] MEDS: HYDROmorphone 1 mg/ml ISec IVP PRN ×2 (03:28→06:27)
[2017-06-09] MEDS: Potassium Chloride 10 MEQ in Dextrose 5%/0.45% NS 1,000 ML IV SCH ×3 (05:40→21:06)
--- NOTE | 2017-06-09 07:51 | CP.PCM.PN ---
<Letty Kelly - Last Filed: 06/09/17 07:48> Subjective - Date & Time of Evaluation Date of Evaluation: 06/09/17 Time of Evaluation: 07:48 - Subjective Subjective: General Surgery - Dr. Reina Pt S&E. Pt states he is not doing well this morning d/t severe heartburn which kept him up all night and has been unrelieved with Maalox. Pt describes the pain as a burning pain in the upper throat. He also complains of RLQ pain but he attributes this to shaking in bed all night from the heartburn pain and denies any worsening abdominal pain. He tolerated clear liquids yesterday and denies any N/V, F/C, SOB/Cp. He has been OOB and ambulated several times yesterday. He is voiding on his own, but no flatus or BM yet. Gilbert drain in RLQ w/ 150cc serosanguinous drainage/24hrs Objective - Vital Signs/Intake and Output Vital Signs (last 24 hours): Temp Pulse Resp BP Pulse Ox 97.7 F 61 18 138/84 97 06/08/17 16:00 06/08/17 16:00 06/08/17 16:00 06/08/17 16:00 06/08/17 16:00 Intake and Output: 06/09/17 06/09/17 06:59 18:59 Intake Total 720 Output Total 210 Balance 510 - Medications Medications: Current Medications Calcium Carbonate (Caltrate) 600 mg PO Q6H PRN PRN Reason: Heartburn Enoxaparin Sodium (Lovenox) 40 mg SC DAILY [facility] PRN Reason: Protocol Hydromorphone HCl (Dilaudid) 1 mg IVP Q3H PRN PRN Reason: Pain, severe (8-10) Last Admin: 06/09/17 06:27 Dose: 1 mg Potassium Chloride 10 meq/ (Dextrose/Sodium Chloride) 1,005 mls @ 70 mls/hr IV .[id number] [facility] Last Admin: 06/09/17 05:40 Dose: 70 mls/hr Ondansetron HCl (Zofran Inj) 4 mg IVP Q4H PRN PRN Reason: Nausea/Vomiting Last Admin: 06/09/17 03:31 Dose: 4 mg Oxycodone/Acetaminophen (Percocet 5/325 Mg Tab) 2 tab PO Q4H PRN PRN Reason: Pain, moderate (4-7) Stop: 06/11/17 11:57 Pantoprazole Sodium (Protonix Inj) 40 mg IVP Q12 ROCK - Labs Labs: 06/08/17 06:00 06/08/17 06:00 - Constitutional Appears: In Acute Distress, Agitated (d/t severe heartburn symptoms) - Head Exam Head Exam: ATRAUMATIC, NORMAL INSPECTION, NORMOCEPHALIC - Eye Exam Eye Exam: Normal appearance - Respiratory Exam Respiratory Exam: NORMAL BREATHING PATTERN. absent: Respiratory Distress - Cardiovascular Exam Cardiovascular Exam: REGULAR RHYTHM - GI/Abdominal Exam GI & Abdominal Exam: Distended, Soft, Tenderness (rlq near drain site). absent : Firm, Guarding, Rigid - Neurological Exam Neurological Exam: Alert, Oriented x3 - Psychiatric Exam Psychiatric exam: Normal Affect, Normal Mood - Skin Skin Exam: Dry, Intact Assessment and Plan - Assessment and Plan (Free Text) Assessment: 37M s/p lap sigmoid colon resection with low anterior anastomosis; POD#2 Plan: -Full liquid diet as ordered but instructed to go slowly with the diet -Calcium carbonate and Protonix ordered for reflux -PO pain control -Continue IVF -Strict Is/Os - please record urine and drain outputs -Encourage Ambulation and Incentive Spirometer DW Dr Nuno Kelly PGY3 <Freddie Reina - Last Filed: 06/12/17 23:47> Objective - Vital Signs/Intake and Output Vital Signs (last 24 hours): Temp Pulse Resp BP Pulse Ox 98.1 F 63 18 126/80 98 06/10/17 16:00 06/10/17 16:00 06/10/17 16:00 06/10/17 16:00 06/10/17 16:00 - Labs Labs: 06/11/17 07:20 06/11/17 07:20 Assessment and Plan - Assessment and Plan (Free Text) Plan: Patient was seen and examined by me. I agree with assessment and plan as per resident's note.
[2017-06-09 08:09] LABS: HEMATOCRIT 44.2 % (42.0-52.0); MEAN CELL VOLUME 86.7 fl (80.0-105.0); MEAN CORPUSCULAR HEMOGLOBIN 29.4 pg (25.0-35.0); MEAN CORPUSCULAR HGB CONC 33.9 g/dl (31.0-37.0); MEAN PLATELET VOLUME 9.1 fl (7.0-11.0); RED CELL DISTRIBUTION WIDTH 13.9 % (11.5-14.5); WHITE BLOOD COUNT 12.5 10^3/ul (4.5-11.0)
[2017-06-09 08:22] LABS: BLOOD UREA NITROGEN 9 mg/dL (7-21); CALCIUM 9.2 mg/dL (8.4-10.5); CARBON DIOXIDE 27 mmol/L (21-33); CHLORIDE 100 mmol/L (98-107); GFR AFRICAN-AMERICAN > 60; GLUCOSE,RANDOM 135 mg/dL (70-110); POTASSIUM 3.9 mmol/L (3.6-5.0); SODIUM 136 mmol/L (132-148)
[2017-06-09] MEDS ORDERED: cefTRIAXone 1 gm 1 GM/100 ML BAG IVPB SCH (10:00)
[2017-06-09] MEDS: Enoxaparin 40 mg Syringe SC SCH (10:51)
[2017-06-09 17:05] VITALS: RESP 18
--- NOTE | 2017-06-09 20:50 | OP ---
PROCEDURE DATE: 06/07/2017 PREOPERATIVE DIAGNOSES: Diverticulosis and history of perforated diverticular abscess. POSTOPERATIVE DIAGNOSES: Diverticulosis and history of perforated diverticular abscess. PROCEDURE: Laparoscopic low anterior resection of the rectosigmoid. SURGEON: Freddie Reina MD PHOTO EDITOR: Dr. Barclay and Dr. Frederick. TYPE OF ANESTHESIA: General endotracheal anesthesia. ANESTHESIA ADMINISTERED BY: Siddhartha Nelson MD ESTIMATED BLOOD LOSS: Minimal. SPECIMEN: Rectosigmoid colon. INDICATIONS: The patient is a 37-year-old male with history of previous attacks of diverticulitis with the most recent one about five weeks ago associated with microperforation and abscess, which was drained by interventional radiology. The patient was treated with antibiotics and now returns for definitive treatment and resection of the previously perforated resection of the colon. DESCRIPTION OF PROCEDURE: The patient was brought to the operating room and placed on the operating table in supine position. The patient was connected to EKG, blood pressure, and pulse oximetry monitor. The patient then underwent general endotracheal anesthesia and was prepped and draped in the usual sterile fashion. First, a standard time-out procedure took place and everybody in the room were agreed as to the patient's identity, diagnosis, and procedure performed. The surgical plan and postoperative plan were also discussed. First using two towel clips, the area just below the umbilicus was infiltrated with lidocaine and elevated and a small incision was made in order to place a Veress needle. Once pneumoperitoneum was obtained, a 12-mm trocar was inserted through the incision and careful evaluation of abdominal cavity revealed the presence of an inflamed sigmoid colon starting at the rectosigmoid with multiple adherent loops of small bowel and going on to the mid sigmoid. At this point, I proceeded with placing a second 12 mm trocar in the right lower quadrant and 5 mm trocar in the right upper quadrant. I then proceeded with careful evaluation of the colon, which had multiple adhesions of small bowel as well as itself to the bladder wall. Once those adhesions were cleared and the mesentery of the distal sigmoid colon was straightened out, I then proceeded with further dissection into the pelvic brim and down into the pelvis. Another 5 mm trocar was placed in the left lower quadrant in order to obtain full retraction of the specimen. Now the mesentery of the sigmoid was transected about the level of the inferior mesenteric artery and the branches of that artery were taken down freeing the distal portion of the sigmoid colon. As we came down to the pelvic brim, incision was made laterally on both sides of the colon and dissection was done down to the proximal rectum. The mesorectum was transected using Harmonic scalpel and once rectal vault was exposed, I proceeded with transection of the specimen using Endo-DONITA stapler. Two counter stitches were fired in order to transect the entire specimen. The area of the pelvis was now copiously irrigated. There was excellent hemostasis and the air and fluid was suctioned out. I then proceeded with mobilization of the sigmoid colon up to the descending colon in order to gain adequate length for low pelvic anastomosis after resection of the specimen. The area of the specimen, which was inflamed was also marked by transecting the mesentery of that portion using Harmonic scalpel. Now, the muscle splitting incision was made at the site of the previous left lower quadrant trocar site and that incision was carried through into the abdominal cavity and wound protector was placed through that incision, which was about 4 cm in size and the rectosigmoid was brought out for the specimen. Once in place and the area that was marked for transection was identified, the auto purse string clamp was then placed and the area cleaned out from the adjacent fat and fired in order to exclude all the large diverticula from the remaining colon. Now the mid sigmoid colon was transected and the specimen was sent for Pathology. The mid sigmoid colon proximal to the transection was now carefully elevated and sizers were used in order to identify the size of the EEA stapler, which eventually ended up being 33 mm. Now the angle of the stapler was placed into the mid sigmoid colon and purse string stitch was tied. Once this was accomplished, we then proceeded with dropping the colon back into the abdominal cavity together with the angle, closed the muscle splitting incision and proceeded with completion of the anastomosis driving the anvil with a clamp from the right lower quadrant port and placing the EEA stapler through the rectum and under direct visualization identifying the spike of the EEA stapler connecting the anvil with the stapler and firing the stapler after it was closed. Two complete rings of tissue were noted. The colon was now tested after filling the pelvis with saline by grabbing the proximal colon with a clamp. Air was insufflated into the rectum and there was no evidence of any air leak from the anastomosis. Once this was completed, the fluid from the pelvis was suctioned out. A Gilbert drain was placed through the right upper quadrant 5 mm port into the abdominal cavity and dropped on the area of the anastomosis. That 5 mm port was then removed and a stitch was placed in order to hold the drain in place. Now, the pneumoperitoneum was released, trocars removed, and the trocar sites were closed using 0 Vicryl stitch in a [id number] fashion. A sterile Dermabond dressing was placed to the wounds after they were closed with 4-0 Monocryl. The patient tolerated the procedure well and there were no other complication. The patient was awakened and transferred to the recovery room for further observation. Freddie Reina MD
[2017-06-10 08:48] LABS: BASO # 0.01 K/mm3 (0.0-2.0); BASO % 0.1 % (0.0-3.0); EOS # 0.2 (0.0-0.7); GRAN # 5.02 (1.4-6.5); GRAN % 64.8 % (50.0-68.0); HEMATOCRIT 43.3 % (42.0-52.0); LYMPH % 26.2 % (22.0-35.0); MEAN CELL VOLUME 85.9 fl (80.0-105.0); MEAN CORPUSCULAR HGB CONC 33.7 g/dl (31.0-37.0); MONO # 0.5 (0.1-0.6); MONO % 5.9 % (1.0-6.0); RED CELL DISTRIBUTION WIDTH 13.7 % (11.5-14.5); WHITE BLOOD COUNT 7.8 10^3/ul (4.5-11.0)
[2017-06-10 09:14] LABS: ALB/GLOB RATIO 1.3 (1.1-1.8); ALKALINE PHOSPHATASE 62 U/L (38-126); ALT/SGPT 67 U/L (7-56); AST/SGOT 37 U/L (17-59); BLOOD UREA NITROGEN 6 mg/dL (7-21); CALCIUM 9.9 mg/dL (8.4-10.5); CARBON DIOXIDE 27 mmol/L (21-33); CHLORIDE 103 mmol/L (98-107); GFR AFRICAN-AMERICAN > 60; GLUCOSE,RANDOM 118 mg/dL (70-110); POTASSIUM 3.9 mmol/L (3.6-5.0); SODIUM 139 mmol/L (132-148); TOTAL PROTEIN 7.8 g/dL (5.8-8.3)
[2017-06-10] MEDS: Enoxaparin 40 mg Syringe SC SCH ×2 (09:15→09:52)
--- NOTE | 2017-06-10 09:30 | CP.PCM.PCO ---
Physician Communication Note - Physician Communication Note Physician Communication Note: Progressing very well post-op. Will plan to D/C today if BM occurs.
[2017-06-10] MEDS: Potassium Chloride 10 MEQ in Dextrose 5%/0.45% NS 1,000 ML IV SCH (10:24)
[2017-06-10 17:55] VITALS: BP 126/80; PULSE 63; TEMP 98.1; O2SAT 98
[2017-06-11 07:32] LABS: MEAN CELL VOLUME 85.6 fl (80.0-105.0); MEAN CORPUSCULAR HEMOGLOBIN 29.6 pg (25.0-35.0); MEAN CORPUSCULAR HGB CONC 34.5 g/dl (31.0-37.0); MEAN PLATELET VOLUME 9.1 fl (7.0-11.0); RED CELL DISTRIBUTION WIDTH 13.3 % (11.5-14.5); WHITE BLOOD COUNT 7.5 10^3/ul (4.5-11.0)
[2017-06-11 07:56] LABS: ALB/GLOB RATIO 1.3 (1.1-1.8); ALKALINE PHOSPHATASE 64 U/L (38-126); ALT/SGPT 68 U/L (7-56); AST/SGOT 35 U/L (17-59); BILIRUBIN,TOTAL 1.1 mg/dL (0.2-1.3); BLOOD UREA NITROGEN 11 mg/dL (7-21); CARBON DIOXIDE 26 mmol/L (21-33); CHLORIDE 105 mmol/L (98-107); GFR AFRICAN-AMERICAN > 60; GLUCOSE,RANDOM 94 mg/dL (70-110); POTASSIUM 4.2 mmol/L (3.6-5.0); SODIUM 141 mmol/L (132-148); TOTAL PROTEIN 7.8 g/dL (5.8-8.3)
[2017-06-11] MEDS: Enoxaparin 40 mg Syringe SC SCH (09:21)
--- NOTE | 2017-06-11 14:34 | CP.PCM.DIS ---
Provider - Provider Date of Admission: 06/07/17 06:40 Attending physician: Freddie Reina MD Primary care physician: Go Wolf MD Time Spent in preparation of Discharge (in minutes): 45 Hospital Course - Lab Results Lab Results: Most Recent Lab Values WBC 7.5 10^3/ul (4.5-11.0) 06/11/17 07:20 RBC 5.14 10^6/uL (3.5-6.1) 06/11/17 07:20 Hgb 15.2 g/dL (14.0-18.0) 06/11/17 07:20 Hct 44.0 % (42.0-52.0) 06/11/17 07:20 MCV 85.6 fl (80.0-105.0) 06/11/17 07:20 MCH 29.6 pg (25.0-35.0) 06/11/17 07:20 MCHC 34.5 g/dl (31.0-37.0) 06/11/17 07:20 RDW 13.3 % (11.5-14.5) 06/11/17 07:20 Plt Count 218 10^3/uL (120.0-450.0) 06/11/17 07:20 MPV 9.1 fl (7.0-11.0) 06/11/17 07:20 Gran % 64.8 % (50.0-68.0) 06/10/17 08:30 Lymph % (Auto) 26.2 % (22.0-35.0) 06/10/17 08:30 Lane % (Auto) 5.9 % (1.0-6.0) 06/10/17 08:30 Eos % (Auto) 3.0 % (1.5-5.0) 06/10/17 08:30 Baso % (Auto) 0.1 % (0.0-3.0) 06/10/17 08:30 Gran # 5.02 (1.4-6.5) 06/10/17 08:30 Lymph # 2.0 (1.2-3.4) 06/10/17 08:30 Lane # 0.5 (0.1-0.6) 06/10/17 08:30 Eos # 0.2 (0.0-0.7) 06/10/17 08:30 Baso # 0.01 K/mm3 (0.0-2.0) 06/10/17 08:30 Sodium 141 mmol/L (132-148) 06/11/17 07:20 Potassium 4.2 mmol/L (3.6-5.0) 06/11/17 07:20 Chloride 105 mmol/L (98-107) 06/11/17 07:20 Carbon Dioxide 26 mmol/L (21-33) 06/11/17 07:20 Anion Gap 14 (10-20) 06/11/17 07:20 BUN 11 mg/dL (7-21) 06/11/17 07:20 Creatinine 0.8 mg/dl (0.8-1.5) 06/11/17 07:20 Est GFR ( Amer) > 60 06/11/17 07:20 Est GFR (Non-Af Amer) > 60 06/11/17 07:20 Random Glucose 94 mg/dL (70-110) 06/11/17 07:20 Calcium 10.0 mg/dL (8.4-10.5) 06/11/17 07:20 Total Bilirubin 1.1 mg/dL (0.2-1.3) 06/11/17 07:20 AST 35 U/L (17-59) 06/11/17 07:20 ALT 68 U/L (7-56) H 06/11/17 07:20 Alkaline Phosphatase 64 U/L (38-126) 06/11/17 07:20 Total Protein 7.8 g/dL (5.8-8.3) 06/11/17 07:20 Albumin 4.4 g/dL (3.0-4.8) 06/11/17 07:20 Globulin 3.4 gm/dL 06/11/17 07:20 Albumin/Globulin Ratio 1.3 (1.1-1.8) 06/11/17 07:20 - Hospital Course Hospital Course: 37 M w ho diverticulitis came to [facility] for elective sigmoidectomy. Pt tolerated the surgery well. Pain controlled. Tolerated diet. Voided. Report flatus. Ambulated. Pt is anxious to go home. Drain was removed. On POD 4, Pt is ok to go home. Labs were wnl. Discharge Exam - Head Exam Head Exam: ATRAUMATIC, NORMAL INSPECTION, NORMOCEPHALIC Discharge Plan - Discharge Medications Prescriptions: Tramadol HCl [Ultram] 25 mg PO TID PRN #15 tablet PRN Reason: Pain, Moderate (4-7) - Follow Up Plan Condition: GOOD Disposition: HOME/ ROUTINE Instructions: Diverticulitis (GEN), Colectomy (GEN), Acute Wound Care (GEN), Diverticulitis Diet (GEN) Additional Instructions: FOLLOW UP WITH SURGERY DR REINA CALL AND MAKE APPOINTMENT AND PRIMARY PHYSICIAN DR WOLF Ok to take shower. Keep glue on. No heavy lifting for 1 month. Referrals: Go Wolf MD [Primary Care Provider] -
== END 2017-06-11 16:10 | disposition home or self-care (01) | DRG 331 ==
LOC: SDAINP 06:40 → EDSTATUS 07:30 → 5RNO 14:10
PROVIDERS: ADMIT General Practice; ATTEND General Practice
PROC: 0DBN4ZZ Excision of Sigmoid Colon, Percutaneous Endoscopic Approach (ICD-10-PCS; principal; 2017-06-07 07:30)
DX: K57.92 Diverticulitis of intestine, part unspecified, without perforation or abscess without bleeding (principal)